=== PATIENT | male | born 1955 | race Caucasian/White ===

== ENCOUNTER 2020-08-18 12:24 | Inpatient (IN) ==
--- NOTE | 2020-08-18 13:33 | Emergency Department Note ---
History of Present Illness General Chief complaint: Fall Stated complaint: RECENT FREQ IN FALLS,LEGS GO OUT,NUMB/TING BUE Time Seen by Provider: 08/18/20 13:09 History of Present Illness Maximum Pain Intensity: 9 This is a 65-year-old male the presents to the emergency department via private vehicle with complaints of "recent increase in number of falls, legs giving out, numbness/tingling". The patient states that beginning in May 2019 he was descending a flight of steps and his legs gave out on him. He thought perhaps this was an isolated event but notes that 2 weeks later this occurred again. He states that he was then given a cane of which he used for about 6 weeks. He no poli that he had a nerve conduction performed about a year ago. He notes that there was evidence of abnormalities in the extremities. At times he feels as though the hands are on fire but this is intermittent. He also notes a numbness/tingling sensation from the fingertips to the mid forearms bilaterally. He also notes a similar sensation in the toes, feet and mid marshall regions. Patient notes that over the past 3 to 4 days he has fallen several times and has injured his left thumb, right side of his ribs, as well as struck his knees and injured his toes. He notes a history of COPD and has chronic shortness of breath but this is not new. The patient denies any fevers, chills, nausea, vom iting or chest pain. Patient also notes that as of recent he has had trouble urinating and did have to have a catheter placed which was removed recently. Home Medications Medication Instructions Recorded Confirmed Type acetaminophen 1,000 mg PO TID PRN 08/18/20 08/18/20 History acidophilus-pectin, citrus 1 cap PO TID 08/18/20 08/18/20 History [Acidophilus Probiotic] aspirin 81 mg PO DAILY 08/18/20 08/18/20 History atorvastatin 40 mg PO DAILY 08/18/20 08/18/20 History baclofen 20 mg PO BID 08/18/20 08/18/20 History ciclesonide [Alvesco] 1 puff INHALATION BID 08/18/20 08/18/20 History diclofenac sodium 50 mg PO TID 08/18/20 08/18/20 History fluoxetine 80 mg PO DAILY 08/18/20 08/18/20 History levalbuterol tartrate [Xopenex HFA] 2 inh INHALATION Q6H PRN 08/18/20 08/18/20 History loperamide [Imodium A-D] 2 mg PO QID PRN 08/18/20 08/18/20 History oxcarbazepine [Trileptal] 150 mg PO BID 08/18/20 08/18/20 History ropinirole 1 mg PO HS 08/18/20 08/18/20 History Allergies Allergy/AdvReac Type Severity Reaction Status Date / Time gemfibrozil [From Lopid] Allergy Unknown Unverified 08/18/20 15:16 Past Med/Surg History Medical History CAD (coronary artery disease) HLD (hyperlipidemia) Idiopathic polyneuropathy Seizure disorder Surgical History H/O toe surgery History of carpal tunnel release of both wrists Stented coronary artery Family History Mother Diabetes Father Coronary heart disease Diabetes Myocardial infarction Social History Smoking Status: Former smoker Tobacco Type: Cigarettes Hx Alcohol Use: Yes Alcohol type: beer and hard liquor Preferred Language: Russian Current Living Situation: Other Current Living Situation Comment: [facility] Other Information That Helps Us Care for You: No Feels Safe at Home: Yes Assistive Devices: Wheelchair Review of Systems A total of 10 systems reviewed and were otherwise negative Physical Exam Vital Signs Vital Signs - 24 hr 08/18/20 12:27 08/18/20 12:47 08/18/20 12:51 Temperature 36.6 C Temperature Source Temporal Artery Scan Pulse Rate 84 83 80 Pulse Rate [Apical] Pulse Rate from SpO2 Sensor 84 79 Respiratory Rate 18 19 21 Respiratory Effort / Characteristics Non-Labored Spontaneous Respiratory Depth Normal Respiratory Pattern Regular Blood Pressure 142/93 H 151/89 H Blood Pressure [Left Arm] Blood Pressure Mean 109 109 Blood Pressure Mean [Left Arm] Blood Pressure Position Sitting Pulse Oximetry 92 95 95 Oxygen Delivery Method Room Air Sepsis Recent Fever Within 48 Hours No Sepsis New/Unexplained Change in Mental Status N/A Sepsis Action Taken by Nursing No Action Required 08/18/20 13:00 08/18/20 13:01 08/18/20 13:10 Temperature Temperature Source Pulse Rate 85 86 82 Pulse Rate [Apical] Pulse Rate from SpO2 Sensor 84 86 Respiratory Rate 18 29 H 18 Respiratory Effort / Characteristics Respiratory Depth Respiratory Pattern Blood Pressure 128/101 H Blood Pressure [Left Arm] Blood Pressure Mean 110 Blood Pressure Mean [Left Arm] Blood Pressure Position Pulse Oximetry 93 95 Oxygen Delivery Method Sepsis Recent Fever Within 48 Hours Sepsis New/Unexplained Change in Mental Status Sepsis Action Taken by Nursing 08/18/20 13:20 08/18/20 13:30 08/18/20 13:31 Temperature Temperature Source Pulse Rate 83 82 77 Pulse Rate [Apical] Pulse Rate from SpO2 Sensor Respiratory Rate 22 28 H 29 H Respiratory Effort / Characteristics Respiratory Depth Respiratory Pattern Blood Pressure 161/93 H Blood Pressure [Left Arm] Blood Pressure Mean 115 Blood Pressure Mean [Left Arm] Blood Pressure Position Pulse Oximetry Oxygen Delivery Method Sepsis Recent Fever Within 48 Hours Sepsis New/Unexplained Change in Mental Status Sepsis Action Taken by Nursing 08/18/20 13:33 08/18/20 13:40 08/18/20 13:50 Temperature Temperature Source Pulse Rate 78 77 Pulse Rate [Apical] Pulse Rate from SpO2 Sensor Respiratory Rate 25 H 15 Respiratory Effort / Characteristics Respiratory Depth Respiratory Pattern Blood Pressure Blood Pressure [Left Arm] Blood Pressure Mean Blood Pressure Mean [Left Arm] Blood Pressure Position Pulse Oximetry Oxygen Delivery Method Room Air Sepsis Recent Fever Within 48 Hours Sepsis New/Unexplained Change in Mental Status Sepsis Action Taken by Nursing 08/18/20 14:00 08/18/20 14:02 08/18/20 14:10 Temperature Temperature Source Pulse Rate 78 107 H Pulse Rate [Apical] 77 Pulse Rate from SpO2 Sensor 77 105 H Respiratory Rate 17 18 17 Respiratory Effort / Characteristics Non-Labored Respiratory Depth Normal Respiratory Pattern Blood Pressure 153/99 H Blood Pressure [Left Arm] 153/99 H Blood Pressure Mean 117 Blood Pressure Mean [Left Arm] 117 Blood Pressure Position Pulse Oximetry 95 95 97 Oxygen Delivery Method Room Air Sepsis Recent Fever Within 48 Hours Sepsis New/Unexplained Change in Mental Status Sepsis Action Taken by Nursing 08/18/20 14:20 08/18/20 14:30 08/18/20 14:40 Temperature Temperature Source Pulse Rate 76 76 71 Pulse Rate [Apical] 76 Pulse Rate from SpO2 Sensor 76 76 73 Respiratory Rate 23 21 19 Respiratory Effort / Characteristics Respiratory Depth Respiratory Pattern Blood Pressure 161/94 H Blood Pressure [Left Arm] 160/94 H Blood Pressure Mean 116 Blood Pressure Mean [Left Arm] 116 Blood Pressure Position Pulse Oximetry 95 95 96 Oxygen Delivery Method Room Air Sepsis Recent Fever Within 48 Hours Sepsis New/Unexplained Change in Mental Status Sepsis Action Taken by Nursing 08/18/20 14:49 08/18/20 14:51 08/18/20 15:00 Temperature Temperature Source Pulse Rate 75 79 74 Pulse Rate [Apical] Pulse Rate from SpO2 Sensor 76 78 74 Respiratory Rate 19 18 23 Respiratory Effort / Characteristics Respiratory Depth Respiratory Pattern Blood Pressure 156/98 H 160/94 H Blood Pressure [Left Arm] Blood Pressure Mean 117 116 Blood Pressure Mean [Left Arm] Blood Pressure Position Pulse Oximetry 96 98 96 Oxygen Delivery Method Sepsis Recent Fever Within 48 Hours Sepsis New/Unexplained Change in Mental Status Sepsis Action Taken by Nursing 08/18/20 15:26 08/18/20 15:30 08/18/20 15:31 Temperature Temperature Source Pulse Rate 80 69 76 Pulse Rate [Apical] Pulse Rate from SpO2 Sensor 79 Respiratory Rate 23 25 H 20 Respiratory Effort / Characteristics Respiratory Depth Respiratory Pattern Blood Pressure 152/107 H Blood Pressure [Left Arm] Blood Pressure Mean 122 Blood Pressure Mean [Left Arm] Blood Pressure Position Pulse Oximetry 94 80 L Oxygen Delivery Method Sepsis Recent Fever Within 48 Hours Sepsis New/Unexplained Change in Mental Status Sepsis Action Taken by Nursing 08/18/20 15:40 08/18/20 15:47 08/18/20 15:48 Temperature Temperature Source Pulse Rate 77 78 74 Pulse Rate [Apical] Pulse Rate from SpO2 Sensor 77 79 74 Respiratory Rate 23 24 19 Respiratory Effort / Characteristics Respiratory Depth Respiratory Pattern Blood Pressure 170/134 H 179/101 H Blood Pressure [Left Arm] Blood Pressure Mean 146 127 Blood Pressure Mean [Left Arm] Blood Pressure Position Pulse Oximetry 97 97 97 Oxygen Delivery Method Sepsis Recent Fever Within 48 Hours Sepsis New/Unexplained Change in Mental Status Sepsis Action Taken by Nursing 08/18/20 15:50 08/18/20 16:00 08/18/20 16:01 Temperature Temperature Source Pulse Rate 75 74 79 Pulse Rate [Apical] Pulse Rate from SpO2 Sensor 75 73 78 Respiratory Rate 16 22 19 Respiratory Effort / Characteristics Respiratory Depth Respiratory Pattern Blood Pressure 201/98 H Blood Pressure [Left Arm] Blood Pressure Mean 132 Blood Pressure Mean [Left Arm] Blood Pressure Position Pulse Oximetry 97 79 L 97 Oxygen Delivery Method Sepsis Recent Fever Within 48 Hours Sepsis New/Unexplained Change in Mental Status Sepsis Action Taken by Nursing 08/18/20 16:10 08/18/20 16:16 08/18/20 16:20 Temperature Temperature Source Pulse Rate 77 76 78 Pulse Rate [Apical] 74 Pulse Rate from SpO2 Sensor 75 78 Respiratory Rate 19 15 36 H Respiratory Effort / Characteristics Non-Labored Spontaneous Respiratory Depth Respiratory Pattern Blood Pressure 181/115 H Blood Pressure [Left Arm] Blood Pressure Mean 137 Blood Pressure Mean [Left Arm] Blood Pressure Position Pulse Oximetry 97 100 Oxygen Delivery Method Room Air Sepsis Recent Fever Within 48 Hours Sepsis New/Unexplained Change in Mental Status Sepsis Action Taken by Nursing 08/18/20 16:30 08/18/20 16:31 08/18/20 16:40 Temperature Temperature Source Pulse Rate 80 76 83 Pulse Rate [Apical] Pulse Rate from SpO2 Sensor 76 80 Respiratory Rate 32 H 29 H 18 Respiratory Effort / Characteristics Respiratory Depth Respiratory Pattern Blood Pressure 155/103 H Blood Pressure [Left Arm] Blood Pressure Mean 120 Blood Pressure Mean [Left Arm] Blood Pressure Position Pulse Oximetry 99 96 Oxygen Delivery Method Sepsis Recent Fever Within 48 Hours Sepsis New/Unexplained Change in Mental Status Sepsis Action Taken by Nursing 08/18/20 16:46 08/18/20 16:50 08/18/20 17:00 Temperature Temperature Source Pulse Rate 81 79 82 Pulse Rate [Apical] Pulse Rate from SpO2 Sensor 81 81 Respiratory Rate 22 22 23 Respiratory Effort / Characteristics Respiratory Depth Respiratory Pattern Blood Pressure 153/102 H Blood Pressure [Left Arm] Blood Pressure Mean 119 Blood Pressure Mean [Left Arm] Blood Pressure Position Pulse Oximetry 95 97 Oxygen Delivery Method Sepsis Recent Fever Within 48 Hours Sepsis New/Unexplained Change in Mental Status Sepsis Action Taken by Nursing 08/18/20 17:10 08/18/20 17:16 08/18/20 17:20 Temperature Temperature Source Pulse Rate 78 79 82 Pulse Rate [Apical] Pulse Rate from SpO2 Sensor 76 Respiratory Rate 13 18 22 Respiratory Effort / Characteristics Respiratory Depth Respiratory Pattern Blood Pressure 155/95 H Blood Pressure [Left Arm] Blood Pressure Mean 115 Blood Pressure Mean [Left Arm] Blood Pressure Position Pulse Oximetry 97 Oxygen Delivery Method Sepsis Recent Fever Within 48 Hours Sepsis New/Unexplained Change in Mental Status Sepsis Action Taken by Nursing 08/18/20 17:30 08/18/20 17:31 08/18/20 17:40 Temperature Temperature Source Pulse Rate 97 H 83 93 H Pulse Rate [Apical] Pulse Rate from SpO2 Sensor Respiratory Rate 24 20 27 H Respiratory Effort / Characteristics Respiratory Depth Respiratory Pattern Blood Pressure 159/70 H Blood Pressure [Left Arm] Blood Pressure Mean 99 Blood Pressure Mean [Left Arm] Blood Pressure Position Pulse Oximetry Oxygen Delivery Method Sepsis Recent Fever Within 48 Hours Sepsis New/Unexplained Change in Mental Status Sepsis Action Taken by Nursing 08/18/20 17:46 08/18/20 17:47 08/18/20 17:50 Temperature Temperature Source Pulse Rate 90 87 122 H Pulse Rate [Apical] Pulse Rate from SpO2 Sensor Respiratory Rate 17 18 19 Respiratory Effort / Characteristics Respiratory Depth Respiratory Pattern Blood Pressure 141/106 H Blood Pressure [Left Arm] Blood Pressure Mean 117 Blood Pressure Mean [Left Arm] Blood Pressure Position Pulse Oximetry Oxygen Delivery Method Sepsis Recent Fever Within 48 Hours Sepsis New/Unexplained Change in Mental Status Sepsis Action Taken by Nursing 08/18/20 18:00 08/18/20 18:10 08/18/20 18:16 Temperature Temperature Source Pulse Rate 94 H 98 H 86 Pulse Rate [Apical] Pulse Rate from SpO2 Sensor Respiratory Rate 22 18 20 Respiratory Effort / Characteristics Respiratory Depth Respiratory Pattern Blood Pressure 168/106 H Blood Pressure [Left Arm] Blood Pressure Mean 126 Blood Pressure Mean [Left Arm] Blood Pressure Position Pulse Oximetry Oxygen Delivery Method Sepsis Recent Fever Within 48 Hours Sepsis New/Unexplained Change in Mental Status Sepsis Action Taken by Nursing 08/18/20 18:20 08/18/20 18:30 08/18/20 18:40 Temperature Temperature Source Pulse Rate 89 81 90 Pulse Rate [Apical] Pulse Rate from SpO2 Sensor Respiratory Rate 21 20 23 Respiratory Effort / Characteristics Respiratory Depth Respiratory Pattern Blood Pressure Blood Pressure [Left Arm] Blood Pressure Mean Blood Pressure Mean [Left Arm] Blood Pressure Position Pulse Oximetry Oxygen Delivery Method Sepsis Recent Fever Within 48 Hours Sepsis New/Unexplained Change in Mental Status Sepsis Action Taken by Nursing 08/18/20 18:46 08/18/20 18:50 08/18/20 19:00 Temperature Temperature Source Pulse Rate 80 88 83 Pulse Rate [Apical] Pulse Rate from SpO2 Sensor Respiratory Rate 18 21 21 Respiratory Effort / Characteristics Respiratory Depth Respiratory Pattern Blood Pressure 145/75 H Blood Pressure [Left Arm] Blood Pressure Mean 98 Blood Pressure Mean [Left Arm] Blood Pressure Position Pulse Oximetry Oxygen Delivery Method Sepsis Recent Fever Within 48 Hours Sepsis New/Unexplained Change in Mental Status Sepsis Action Taken by Nursing 08/18/20 19:01 08/18/20 19:10 Temperature Temperature Source Pulse Rate 87 84 Pulse Rate [Apical] Pulse Rate from SpO2 Sensor Respiratory Rate 18 32 H Respiratory Effort / Characteristics Respiratory Depth Respiratory Pattern Blood Pressure 131/105 H Blood Pressure [Left Arm] Blood Pressure Mean 113 Blood Pressure Mean [Left Arm] Blood Pressure Position Pulse Oximetry Oxygen Delivery Method Sepsis Recent Fever Within 48 Hours Sepsis New/Unexplained Change in Mental Status Sepsis Action Taken by Nursing VITAL SIGNS - Vital signs and nursing notes were reviewed. Stable and afebrile. GENERAL - 65-year-old male appearing his stated age who is in no acute distress. Communicates well with provider and answers questions appropriately. SKIN - Without rashes. No meningeal or petechial rash. HEAD - NC/AT. EYES - Sclera anicteric. EARS - No deformities of external structures noted on gross examination bilaterally. NOSE - Midline and without cyanosis. No epistaxis or purulent drainage noted. MOUTH/OROPHARYNX - Without perioral cyanosis. NECK - Neck with FROM.No nuchal rigidity. LUNGS - Chest wall symmetric without accessory muscle use, intercostals retractions, or central cyanosis. Normal vesicular breath sounds CTA B/L. No wheezes, rales, or rhonchi appreciated. CARDIAC - RRR with S1/S2. No murmur, rubs, or gallops appreciated. ABDOMEN - Abdominal contour normal without pulsations or visible masses. BS normoactive all four quadrants. No tenderness, palpable masses, hepatosplenomegaly, or ascites noted. Right anterior lateral rib tenderness to palpation just superior to the right upper quadrant. EXTREMITIES - No clubbing or peripheral cyanosis. No pretibial edema present. Mild tenderness overlying the left thumb region. Full range of motion noted. +5/5 strength noted in UE/LE bilaterally. NEUROLOGIC - Cranial nerves II through XII grossly intact. Sensory intact to light touch throughout. PSYCH - A&Ox3 and cooperates fully with examiner. Pt is very pleasant and interacts well with examiner. Course Administered Medications Baclofen (Baclofen 20 Mg Tab) 20 mg PO BID KILEY Stop: 09/17/20 21:59 Last Admin: 08/18/20 22:14 Dose: 20 mg Documented by: [id number] Enoxaparin Sodium (Enoxaparin Inj 40 Mg/0.4 Ml Syr) 40 mg SQ Q24H KILEY Stop: 09/17/20 21:59 Last Admin: 08/18/20 22:14 Dose: 40 mg Documented by: [id number] Ceftriaxone Sodium 2,000 mg/ (Dextrose) 70 mls @ 100 mls/hr IV Q24H [facility]; Protocol Stop: 08/28/20 21:59 Last Admin: 08/18/20 22:14 Dose: 100 mls/hr Documented by: [id number] Ropinirole HCl (Ropinirole Hcl 1 Mg Tablet) 1 mg PO HS KILEY Stop: 09/17/20 21:59 Last Admin: 08/18/20 22:14 Dose: 1 mg Documented by: [id number] Tamsulosin HCl (Tamsulosin Hcl 0.4 Mg Cap) 0.4 mg PO [facility] Stop: 09/17/20 21:59 Last Admin: 08/18/20 22:14 Dose: 0.4 mg Documented by: [id number] Discontinued Medications Albuterol (Albuterol Hfa 8 Gm Inhaler) 2 puffs INH NOW ONE Stop: 08/18/20 15:55 Last Admin: 08/18/20 16:19 Dose: 2 puffs Documented by: [id number] Ioversol (Optiray 320 100ml) 93 ml IV ONCE ONE Stop: 08/18/20 15:26 Last Admin: 08/18/20 15:25 Dose: 93 ml Documented by: [id number] Medical Decision Making Laboratory Data Result diagrams: 08/18/20 13:24 08/18/20 13:24 Lab Results 08/18/20 08/18/20 08/18/20 Range/Units 10:12 13:24 13:24 WBC 8.29 (4.8-10.8) K/uL RBC 3.58 L (4.7-6.1) M/uL Hgb 11.8 L (14.0-18.0) g/dL Hct 35.2 L (42-52) % MCV 98.3 (80-100) fL MCH 33.0 (25-34) pg MCHC 33.5 (32-36) g/dL RDW Std Deviation 47.5 H (36.4-46.3) fL RDW Coeff of Dinesh 13.1 (11.5-14.5) % Plt Count 188 (130-400) K/uL MPV 9.6 (7.4-10.4) fL Immature Gran % (Auto) 0.1 % Neut % (Auto) 80.5 % Lymph % (Auto) 9.8 % [place] % (Auto) 8.7 % Eos % (Auto) 0.8 % Baso % (Auto) 0.1 % Neut # (Auto) 6.67 H (1.4-6.5) K/uL Lymph # (Auto) 0.81 L (1.2-3.4) K/uL [place] # (Auto) 0.72 H (0.11-0.59) K/uL Eos # (Auto) 0.07 (0-0.5) K/uL Baso # (Auto) 0.01 (0-0.2) K/uL Immature Gran # (Auto) 0.01 (0.00-0.02) K/uL PT (9.0-12.0) Seconds INR (0.9-1.1) APTT (21.0-31.0) Seconds PTT Ratio Sodium 139 (136-145) mmol/L Potassium 4.0 (3.5-5.1) mmol/L Chloride 107 (98-107) mmol/L Carbon Dioxide 25 (21-32) mmol/L Anion Gap 7.0 (3-11) BUN 21 H (7-18) mg/dl Creatinine 0.80 (0.6-1.4) mg/dl Est Cr Clr Drug Dosing Not Reportable Est GFR ( Amer) 107.1 ml/min Est GFR (Non-Af Amer) 92.4 ml/min BUN/Creatinine Ratio 26.2 H (10-20) Glucose 108 H (70-99) mg/dl Calcium 8.9 (8.5-10.1) mg/dl Magnesium 2.3 (1.8-2.4) mg/dl Total Bilirubin 0.6 (0.2-1) mg/dl AST 26 (15-37) U/L ALT 29 (12-78) U/L Alkaline Phosphatase 60 (45-117) U/L Troponin I < 0.015 (0-0.045) ng/ml Total Protein 7.4 (6.4-8.2) gm/dl Albumin 3.9 (3.4-5.0) gm/dl Globulin 3.5 (2.5-4.0) gm/dl Albumin/Globulin Ratio 1.1 (0.9-2) TSH 0.554 (0.300-4.500) uIu/ml Urine Color Yellow Urine Appearance Cloudy A (Clear) Urine pH 7.0 (4.5-7.5) Ur Specific [place] 1.044 H (1.000-1.030) Urine Protein Trace H (Negative) Urine Glucose (UA) Negative (Negative) Urine Ketones Trace H (Negative) Urine Blood 3+ H (Negative) Urine Nitrite Positive A (Negative) Urine Bilirubin Negative (Negative) Urine Urobilinogen Positive H (Negative) Ur Leukocyte Esterase 2+ H (Negative) Urine WBC (Auto) >30 H (0-5) /hpf Urine RBC (Auto) >30 H (0-4) /hpf U Hyaline Cast (Auto) 1-5 (0-5) /lpf U Epithel Cells (Auto) 0-5 (0-5) /lpf Urine Bacteria (Auto) 4+ H (Negative) COVID-19 Eval Order SARS-CoV-2 (PCR) (Negative) 08/18/20 08/18/20 08/18/20 Range/Units 13:24 16:28 16:28 WBC (4.8-10.8) K/uL RBC (4.7-6.1) M/uL Hgb (14.0-18.0) g/dL Hct (42-52) % MCV (80-100) fL MCH (25-34) pg MCHC (32-36) g/dL RDW Std Deviation (36.4-46.3) fL RDW Coeff of Dinesh (11.5-14.5) % Plt Count (130-400) K/uL MPV (7.4-10.4) fL Immature Gran % (Auto) % Neut % (Auto) % Lymph % (Auto) % [place] % (Auto) % Eos % (Auto) % Baso % (Auto) % Neut # (Auto) (1.4-6.5) K/uL Lymph # (Auto) (1.2-3.4) K/uL [place] # (Auto) (0.11-0.59) K/uL Eos # (Auto) (0-0.5) K/uL Baso # (Auto) (0-0.2) K/uL Immature Gran # (Auto) (0.00-0.02) K/uL PT 10.2 (9.0-12.0) Seconds INR 1.0 (0.9-1.1) APTT 22.1 (21.0-31.0) Seconds PTT Ratio 0.8 Sodium (136-145) mmol/L Potassium (3.5-5.1) mmol/L Chloride (98-107) mmol/L Carbon Dioxide (21-32) mmol/L Anion Gap (3-11) BUN (7-18) mg/dl Creatinine (0.6-1.4) mg/dl Est Cr Clr Drug Dosing Est GFR ( Amer) ml/min Est GFR (Non-Af Amer) ml/min BUN/Creatinine Ratio (10-20) Glucose (70-99) mg/dl Calcium (8.5-10.1) mg/dl Magnesium (1.8-2.4) mg/dl Total Bilirubin (0.2-1) mg/dl AST (15-37) U/L ALT (12-78) U/L Alkaline Phosphatase (45-117) U/L Troponin I (0-0.045) ng/ml Total Protein (6.4-8.2) gm/dl Albumin (3.4-5.0) gm/dl Globulin (2.5-4.0) gm/dl Albumin/Globulin Ratio (0.9-2) TSH (0.300-4.500) uIu/ml Urine Color Urine Appearance (Clear) Urine pH (4.5-7.5) Ur Specific [place] (1.000-1.030) Urine Protein (Negative) Urine Glucose (UA) (Negative) Urine Ketones (Negative) Urine Blood (Negative) Urine Nitrite (Negative) Urine Bilirubin (Negative) Urine Urobilinogen (Negative) Ur Leukocyte Esterase (Negative) Urine WBC (Auto) (0-5) /hpf Urine RBC (Auto) (0-4) /hpf U Hyaline Cast (Auto) (0-5) /lpf U Epithel Cells (Auto) (0-5) /lpf Urine Bacteria (Auto) (Negative) COVID-19 Eval Order Covid19 at [facility] SARS-CoV-2 (PCR) NEGATIVE (Negative) Imaging Data Radiologist's Impression: Abdomen/Pelvis CT 08/18/20 13:[address] WITH IV CONTRAST HISTORY: Acute pelvic pain status post fall Frequent falls, R sided rib pain, Suprapubic pain TECHNIQUE: Multiaxial CT images of the abdomen and pelvis were performed following the IV administration of 93 cc of Optiray, A dose lowering technique was utilized adhering to the principles of ALARA. COMPARISON STUDY: CT lumbar spine study of same day FINDINGS: Clear lung bases. No pneumatosis or pneumoperitoneum. The spleen, liver, gallbladder, pancreas and adrenal glands are unremarkable. The kidneys are within normal limits. No hydronephrosis. Mild to moderate urinary bladder wall thickening with perivesicular stranding and trace free pelvic fluid. Mild prostamegaly. Moderate to advanced atherosclerotic plaque the abdominal aorta and branch vessels. Mild fusiform aneurysmal dilation of the infrarenal abdominal aorta, 3.0 x 3.0 cm. No adenopathy. No bowel obstruction or bowel wall thickening. Colonic diverticulosis. Normal appendix. Tiny fat filled periumbilical hernia. Degenerative changes of the spine, pelvis and hips. Healing subacute nondisplaced fracture of the anterior right eighth rib. No acute fracture identified. IMPRESSION: 1. Prostamegaly with urinary bladder wall thickening, perivesicular stranding and trace perivesicular free fluid. Findings are suggestive of cystitis. Correlate with urinalysis. 2. No bowel obstruction or bowel wall thickening. Normal appendix. 3. Healing subacute nondisplaced fracture of the anterior right eighth rib. 4. Fusiform aneurysmal dilation of the infrarenal abdominal aorta, 3.0 cm. 5. Additional findings as above. ACT 112: Negative or not required by law. The above report was generated using voice recognition software. It may contain grammatical, syntax or spelling errors. Electronically signed by: Jon Rowan M.D. 08/18/2020 3:[address] 08/18/20 13:24 CT cervical spine wo con CT DOSE: 3642.93 mGy.cm CLINICAL HISTORY: 65 years-old Male with Frequent falls, trauma. Acute head and neck injury status post fall COMPARISON: Head CT of same day TECHNIQUE: Multiple axial CT images of the cervical spine were obtained without contrast. A dose lowering technique was utilized adhering to the principles of ALARA. FINDINGS: Straightening of the normal cervical lordosis. Moderate multilevel intervertebral disc space narrowing with severe facet arthrosis. Degenerative bony fusion of the left C4-C5 facets. 3 mm anterolisthesis C3 on C4 and C4 on C5, likely secondary to chronic severe facet arthrosis. Mild mid cervical dextroscoliosis. No acute fracture or subluxation. Multilevel neural foraminal narrowing. No pneumothorax. No prevertebral edema. Calcified plaque the carotid bulbs. IMPRESSION: No acute fracture or subluxation. ACT 112: Negative or not required by law. The above report was generated using voice recognition software. It may contain grammatical, syntax or spelling errors. Electronically signed by: Jon Rowan M.D. 08/18/2020 3:32 PM Chest CT 08/18/20 13:24 CT OF THE CHEST WITH IV CONTRAST CLINICAL HISTORY: Frequent falls, R sided rib pain COMPARISON STUDY: No previous studies for comparison. TECHNIQUE: Following IV administration of 93 mL of Optiray, helical axial images of the chest were obtained. Sagittal and coronal reconstructions were viewed as well as maximal intensity projections on an independent 3-D workstation. Automated exposure control was utilized for the study. A dose lowering technique was utilized adhering to the principles of ALARA. FINDINGS: There is no evidence for traumatic injury to the thoracic aorta. No mediastinal hematoma is present. There is no thoracic lymphadenopathy. The size of the heart is normal. There is moderate coronary artery calcification. There is no pericardial effusion. No pneumothorax or pleural effusion is present. There is mild emphysema. Linear opacities reflect atelectasis. There is no contusion within the lungs. A healing anterior right eighth rib fracture is noted. There aren't no acute rib fractures. No acute thoracic spine fracture is present. IMPRESSION: 1. No acute traumatic findings within the chest. 2. Healing anterior right eighth rib fracture. No pneumothorax. No acute rib fractures identified. ACT 112: Negative or not required by law. Electronically signed by: Raheel Chaidez M.D. 08/18/2020 3:[address] 08/18/20 13:[address] DOSE: HISTORY: frequent falls, extremities numb/weak TECHNIQUE: Multiaxial CT images of the head were performed without the use of intravenous contrast. Automated exposure control was utilized for this study. A dose lowering technique was utilized adhering to the principles of ALARA. Comparison: None. Findings: The paranasal sinuses and mastoid air cells are clear. The calvarium and skull base are intact. The ventricles and sulci are within normal limits. There is no mass, hematoma, midline shift, or acute infarct. Impression: No acute intracranial abnormality. ACT 112: Negative or not required by law. Electronically signed by: Javier Tam M.D. 08/18/2020 3:42 PM Hand X-Ray 08/18/20 13:25 XR hand LT min 3V routine HISTORY: 65 years-old Male Fall, L thumb pain acute left hand pain status post fall COMPARISON: None TECHNIQUE: 3 views of the left hand FINDINGS: Predominantly mild multifocal osteoarthritis. There is moderate osteoarthritis of the first DIP joint. No acute fracture, dislocation, osseous erosion or opaque foreign body. IMPRESSION: No acute fracture or dislocation. ACT 112: Negative or not required by law. The above report was generated using voice recognition software. It may contain grammatical, syntax or spelling errors. Electronically signed by: Jon Rowan M.D. 08/18/2020 1:[address] 08/18/20 13:34 CT lumbar spine w con CT DOSE: CLINICAL HISTORY: Urinary difficulties, frequent falls TECHNIQUE: The patient was scanned following administration of 93 cc of Optiray 320. Helical images were acquired. Sagittal coronal reformatted images were created. A dose lowering technique was utilized adhering to the principles of ALARA. COMPARISON STUDY: None. FINDINGS: No acute fractures or traumatic subluxations are visualized. L1-2 level: There is no evidence of significant disc bulge or focal herniation. There is no evidence spinal or foraminal stenosis L2-3 level: There is a mild circumferential disc bulge. There is mild spinal stenosis. There is no significant foraminal narrowing. L3-4 level: There is a circumferential disc bulge. There is moderate spinal s tenosis. There is no specific and foraminal narrowing. L4-5 level: There is marked disc degeneration with discogenic and plate sclerosis. There is a circumferential disc bulge. There is moderate spinal stenosis. There is bilateral foraminal narrowing. L5-S1 level: There is mild posterior spurring. No focal herniations are visualized. There is no significant spinal stenosis. There is mild bilateral foraminal narrowing. IMPRESSION: 1. No acute fractures or traumatic subluxations 2. Multilevel degenerative change with moderate spinal stenosis at the L3-4 and L4-5 levels. ACT 112: Negative or not required by law. Electronically signed by: Giancarlo Garcia M.D. 08/18/2020 3:43 PM MDM Narrative Patient was seen and evaluated as above in room A10. Review was performed of nursing notes and vital signs. I did review pertinent information provided by BRII Gonzalez via packet. After obtaining a thorough history and physical examination the above work up was performed. Patient presents to us today with what he describes as about a year now of his legs intermittently giving out on him and also a burning/numbness sensation in his fingers and toes of which has now progressed into his forearms and mid marshall region. The patient states that he has had several falls over this period of time but has had a sharp increase in number of falls over the past few days. Patient denies any fevers, chills, nausea, vomiting or chest pain. On exam the patient is not have any focal neurologic deficit. Options of care were discussed with the patient. IV access established. With the patient having several falls in the recent past now here today with right- sided rib pain as well as suprapubic abdominal discomfort as well as urinary retention it is felt that further evaluation and management would be warranted. Imaging was obtained of the head and C-spine given patient's frequent falls and numbness in the extremities but I also added on CT scan of the chest, abdomen, pelvis with recon of the L-spine noting the patient's new onset suprapubic abdominal discomfort with urinary retention as well as to evaluate his right- sided rib discomfort status post falls. Results of these images as above. Hand x-ray negative. L-spine negative for fracture. The patient does not have any evidence of acute intracranial process, C-spine injury or acute intrathoracic process. In the abdomen pelvis the patient does have prostamegaly with urinary bladder wall thickening among other findings. Findings are suggestive of cystitis. Correlate with urinalysis. The patient's urinalysis does suggest UTI. Laboratory studies reveal no leukocytosis. No emergent anemia, hemoglobin 11.8. Mild BUN elevation of 21. Glucose 108. Troponin negative. TSH reveals euthyroid state. Urinalysis is with positive nitrites, 3+ blood, and greater than 30 red blood cells as well as white blood cells with 4+ bacteria. Covid testing negative. On arrival I did discuss the patient's presentation with the [facility] ysician. We discussed the concern over the patient having frequent falls and went from a state of being able to ambulate to now having great difficulty with ambulation. We discussed additional inpatient testing. MRI of the brain was discussed as a potential further step. It is felt that the patient would benefit from inpatient management. I relayed this information to the hospitalist that also evaluated the patient. Please refer to further documentation regarding his stay. I was notified that the patient was not able to urinate and was beginning to feel uncomfortable. Bladder scan was performed and a Garcia catheter was placed. Patient was able to drain a large amount of urine. I reviewed the CT scan reports with the patient and discussed incidentals. While in the department, I personally reevaluated the patient several times and each time the patient was found to be resting comfortably. Case was discussed with the attending physician. EKG was reviewed by myself and found to be Normal Sinus Rhythm at a rate of 76 beats per minute and per my interpretation reveals no ST elevation. QTc 456. QRS 94. No ST elevation. GCS: 15 In the evaluation and treatment of this patient, the following differential diagnoses were considered: Concussion, Contrecoup Injury, Brain Tumor, Depression, Encephalitis, Hypothyroidism, Meningitis, CVA, TIA, Migraine, Cluster Headache, Intracranial Abnormality, Intracranial Hemorrhage, Subdural Hematoma, Subarachnoid Hemorrhage, Hydrocephalus, MS, ALS, among others. Impression & Plan Frequent falls, UTI (urinary tract infection), Rib pain on right side, Abdominal pain, suprapubic, Acute urinary retention Discharge Plan Visit Data Chief Complaint: Fall Stated Complaint: RECENT FREQ IN FALLS,LEGS GO OUT,NUMB/TING BUE ED Provider: [facility] ED Midlevel Provider: Fili Jo Discharge Problem: Frequent falls, UTI (urinary tract infection), Rib pain on right side, Abdominal pain, suprapubic, Acute urinary retention Patient Disposition: Admitted As Inpatient Discharge Instructions Interventions: ED Discharge Assessment Last Done: 08/18/20 20:31
--- NOTE | 2020-08-18 13:49 | XRay Report ---
XR hand LT min 3V routine HISTORY: 65 years-old Male Fall, L thumb pain acute left hand pain status post fall COMPARISON: None TECHNIQUE: 3 views of the left hand FINDINGS: Predominantly mild multifocal osteoarthritis. There is moderate osteoarthritis of the first DIP joint . No acute fracture, dislocation, osseous erosion or opaque foreign body. IMPRESSION: No acute fracture or dislocation. ACT 112: Negative or not required by law. The above report was generated using voice recognition software. It may contain grammatical, syntax o r spelling errors. Electronically signed by: Jon Rowan M.D. 08/18/2020 1:48 PM
[2020-08-18 14:08] LABS: Basophils # (auto) 0.01 K/uL (0-0.2); Basophils % (auto) 0.1 %; Eosinophils # (auto) 0.07 K/uL (0-0.5); Eosinophils % (auto) 0.8 %; Hematocrit (blood only) 35.2 % (42-52); Hemoglobin 11.8 g/dL (14.0-18.0); Immature Granulocytes # (auto) 0.01 K/uL (0.00-0.02); Immature Granulocytes % (auto) 0.1 %; Lymphocytes # (auto) 0.81 K/uL (1.2-3.4); Lymphocytes % (auto) 9.8 %; Mean Corpuscular Hgb Conc 33.5 g/dL (32-36); Mean Corpuscular Volume 98.3 fL (80-100); Mean Platelet Volume 9.6 fL (7.4-10.4); Monocytes # (auto) 0.72 K/uL (0.11-0.59); Monocytes % (auto) 8.7 %; Neutrophils # (auto) 6.67 K/uL (1.4-6.5); Neutrophils % (auto) 80.5 %; Platelet Count 188 K/uL (130-400); RDW Coefficient of Variation 13.1 % (11.5-14.5); RDW Standard Deviation 47.5 fL (36.4-46.3); Red Blood Count 3.58 M/uL (4.7-6.1); White Blood Count 8.29 K/uL (4.8-10.8)
[2020-08-18 14:29] LABS: Partial Thromboplastin Ratio 0.8; Partial Thromboplastin Time 22.1 Seconds (21.0-31.0); Prothrombin Time 10.2 Seconds (9.0-12.0)
[2020-08-18 14:35] LABS: Alanine Aminotransferase 29 U/L (12-78); Albumin Level 3.9 gm/dl (3.4-5.0); Aspartate Aminotransferase 26 U/L (15-37); BUN Creatinine Ratio 26.2 (10-20); Blood Urea Nitrogen 21 mg/dl (7-18); Calcium 8.9 mg/dl (8.5-10.1); Carbon Dioxide 25 mmol/L (21-32); Chloride 107 mmol/L (98-107); Est GFR (African American) 107.1 ml/min; Est GFR (Non-African American) 92.4 ml/min; Glucose 108 mg/dl (70-99); Magnesium 2.3 mg/dl (1.8-2.4); Sodium 139 mmol/L (136-145)
[2020-08-18 14:46] LABS: Albumin Globulin Ratio 1.1 (0.9-2); Alkaline Phosphatase 60 U/L (45-117); Bilirubin,Total 0.6 mg/dl (0.2-1); Globulin 3.5 gm/dl (2.5-4.0); Thyroid Stimulating Hormone 0.554 uIu/ml (0.300-4.500); Total Protein 7.4 gm/dl (6.4-8.2); Troponin I < 0.015 ng/ml (0-0.045)
[2020-08-18] MEDS ORDERED: OPTIRAY 320 100ml IV ONE (15:25)
--- NOTE | 2020-08-18 15:33 | CT Scan Report ---
CT cervical spine wo con CT DOSE: 3642.93 mGy.cm CLINICAL HISTORY: 65 years-old Male with Frequent falls, trauma. Acute head and neck injury status p ost fall COMPARISON: Head CT of same day TECHNIQUE: Multiple axial CT images of the cervical spine were obtained without contrast. A dose low ering technique was utilized adhering to the principles of ALARA. FINDINGS: Straightening of the normal cervical lordosis. Moderate multilevel intervertebral disc spac e narrowing with severe facet arthrosis. Degenerative bony fusion of the left C4-C5 facets. 3 mm ante rolisthesis C3 on C4 and C4 on C5, likely secondary to chronic severe facet arthrosis. Mild mid cervi trinity dextroscoliosis. No acute fracture or subluxation. Multilevel neural foraminal narrowing. No pneumothorax. No prevertebral edema. Calcified plaque the carotid bulbs. IMPRESSION: No acute fracture or subluxation. ACT 112: Negative or not required by law. The above report was generated using voice recognition software. It may contain grammatical, syntax o r spelling errors. Electronically signed by: Jon Rowan M.D. 08/18/2020 3:32 PM
--- NOTE | 2020-08-18 15:43 | CT Scan Report ---
CT OF THE CHEST WITH IV CONTRAST CLINICAL HISTORY: Frequent falls, R sided rib pain COMPARISON STUDY: No previous studies for comparison. TECHNIQUE: Following IV administration of 93 mL of Optiray, helical axial images of the chest were o btained. Sagittal and coronal reconstructions were viewed as well as maximal intensity projections o n an independent 3-D workstation. Automated exposure control was utilized for the study. A dose low ering technique was utilized adhering to the principles of ALARA. FINDINGS: There is no evidence for traumatic injury to the thoracic aorta. No mediastinal hematoma i s present. There is no thoracic lymphadenopathy. The size of the heart is normal. There is moderate c oronary artery calcification. There is no pericardial effusion. No pneumothorax or pleural effusion i s present. There is mild emphysema. Linear opacities reflect atelectasis. There is no contusion withi n the lungs. A healing anterior right eighth rib fracture is noted. There aren't no acute rib fractur es. No acute thoracic spine fracture is present. IMPRESSION: 1. No acute traumatic findings within the chest. 2. Healing anterior right eighth rib fracture. No pneumothorax. No acute rib fractures identified. ACT 112: Negative or not required by law. Electronically signed by: Raheel Chaidez M.D. 08/18/2020 3:41 PM
--- NOTE | 2020-08-18 15:44 | CT Scan Report ---
HEAD CT NONCONTRAST CT DOSE: HISTORY: frequent falls, extremities numb/weak TECHNIQUE: Multiaxial CT images of the head were performed without the use of intravenous contrast. A utomated exposure control was utilized for this study. A dose lowering technique was utilized adheri ng to the principles of ALARA. Comparison: None. Findings: The paranasal sinuses and mastoid air cells are clear. The calvarium and skull base are int act. The ventricles and sulci are within normal limits. There is no mass, hematoma, midline shift, or acute infarct. Impression: No acute intracranial abnormality. ACT 112: Negative or not required by law. Electronically signed by: Javier Tam M.D. 08/18/2020 3:42 PM
--- NOTE | 2020-08-18 15:44 | CT Scan Report ---
CT lumbar spine w con CT DOSE: CLINICAL HISTORY: Urinary difficulties, frequent falls TECHNIQUE: The patient was scanned following administration of 93 cc of Optiray 320. Helical images w ere acquired. Sagittal coronal reformatted images were created. A dose lowering technique was utiliz ed adhering to the principles of ALARA. COMPARISON STUDY: None. FINDINGS: No acute fractures or traumatic subluxations are visualized. L1-2 level: There is no evidence of significant disc bulge or focal herniation. There is no evidence spinal or foraminal stenosis L2-3 level: There is a mild circumferential disc bulge. There is mild spinal stenosis. There is no si gnificant foraminal narrowing. L3-4 level: There is a circumferential disc bulge. There is moderate spinal stenosis. There is no spe cific and foraminal narrowing. L4-5 level: There is marked disc degeneration with discogenic and plate sclerosis. There is a circumf erential disc bulge. There is moderate spinal stenosis. There is bilateral foraminal narrowing. L5-S1 level: There is mild posterior spurring. No focal herniations are visualized. There is no signi ficant spinal stenosis. There is mild bilateral foraminal narrowing. IMPRESSION: 1. No acute fractures or traumatic subluxations 2. Multilevel degenerative change with moderate spinal stenosis at the L3-4 and L4-5 levels. ACT 112: Negative or not required by law. Electronically signed by: Giancarlo Garcai M.D. 08/18/2020 3:43 PM
--- NOTE | 2020-08-18 15:46 | CT Scan Report ---
ABDOMEN AND PELVIS CT WITH IV CONTRAST HISTORY: Acute pelvic pain status post fall Frequent falls, R sided rib pain, Suprapubic pain TECHNIQUE: Multiaxial CT images of the abdomen and pelvis were performed following the IV administrat ion of 93 cc of Optiray, A dose lowering technique was utilized adhering to the principles of ALARA. COMPARISON STUDY: CT lumbar spine study of same day FINDINGS: Clear lung bases. No pneumatosis or pneumoperitoneum. The spleen, liver, gallbladder, pancr eas and adrenal glands are unremarkable. The kidneys are within normal limits. No hydronephrosis. Mil d to moderate urinary bladder wall thickening with perivesicular stranding and trace free pelvic flui d. Mild prostamegaly. Moderate to advanced atherosclerotic plaque the abdominal aorta and branch vess els. Mild fusiform aneurysmal dilation of the infrarenal abdominal aorta, 3.0 x 3.0 cm. No adenopathy . No bowel obstruction or bowel wall thickening. Colonic diverticulosis. Normal appendix. Tiny fat fill ed periumbilical hernia. Degenerative changes of the spine, pelvis and hips. Healing subacute nondisp laced fracture of the anterior right eighth rib. No acute fracture identified. IMPRESSION: 1. Prostamegaly with urinary bladder wall thickening, perivesicular stranding and trace perivesicular free fluid. Findings are suggestive of cystitis. Correlate with urinalysis. 2. No bowel obstruction or bowel wall thickening. Normal appendix. 3. Healing subacute nondisplaced fracture of the anterior right eighth rib. 4. Fusiform aneurysmal dilation of the infrarenal abdominal aorta, 3.0 cm. 5. Additional findings as above. ACT 112: Negative or not required by law. The above report was generated using voice recognition software. It may contain grammatical, syntax o r spelling errors. Electronically signed by: Jon Rowan M.D. 08/18/2020 3:45 PM
[2020-08-18] MEDS ORDERED: ALBUTEROL HFA 8 GM INHALER INH ONE (15:54)
--- NOTE | 2020-08-18 17:49 | History & Physical Report ---
Date of Service August 18, 2020 Assessment & Plan (1) Idiopathic polyneuropathy: 65 y/o M w/ hx of HLD, VT, COPD, tobacco use, RLS, hx of sz, and a 1.5 years of idiopathic polyneuropathy who has had increasing extremity weakness and falls. The physical exam showed mostly normal strength with exception of R foot. Exam did not suggest radicular symptoms of hips or lower extremity. Urinary symptoms more likely from BPH and does not appear to be consistent w/ saddle anesthesia. - consult neuro for further workup and to explore management of idiopathic polyneuropathy - hold home Trileptal at patient's request because he states it worsens his RLS symptoms - continue home baclofen 20 BID (2) Falls: - etiology appears to be from lower extremity symptoms as opposed to from lightheadness or near syncope - imaging reviewed; no acute fracture. healing R 8th rib old fracture - fall precautions (3) UTI (urinary tract infection): - UA suggestive of infection. culture sent - patient w/ urinary symptoms - will treat w/ ceftriaxone (4) Incontinence of urine: - bladder scan suggests retention - rashid placed w/ some relief of suprapubic discomfort - start flomax (5) COPD (chronic obstructive pulmonary disease): - continue home inhalers (6) RLS (restless legs syndrome): - chronic, stable continue home ropinirole (7) HLD (hyperlipidemia): - stable, continue home statin (8) CAD (coronary artery disease): - stable, ecg w/o ischemic changes, continue home baby ASA FEN/GI: heart healthy diet. no IVF ppx: lovenox 40 sq qd code: DNR/DNI dispo: med/surg History of Present Illness Chief Complaint: fall Primary Care Provider: Sami Shannon 65 y/o M w/ hx of HLD, CAD w/ stent, COPD, RLS, and a 1.5 years of idiopathic polyneuropathy who has had increasing paresthesias of his extremities and weakness of lower extremities leading to falls. His symptoms started after he twisted his neck while getting off a bus in February 2019. The paresthesias started and he fell from both legs "giving out" 2 weeks later. His hands and feet feel heavy and "frozen." He has had chronic back and neck pain since then as well. Patient notes that his symptoms have persisted and worsened and increased frequency over the past year. 07/2019 EEG suggested idiopathic polyneuropathy. Patient states MS and lyme testing returned negative. He presented to the ED today after having 3 falls in the past week. His baseline has been wheelchair bound x 10 months because of his legs feeling weak/numb and this has mostly not changed. Patient has also had difficulty voiding and urinary incontinence x 3 months along with dysuria. He states that there was discussion of potentially starting Flomax. Denies recent substance use. Denies LOC. Allergies Allergy/AdvReac Type Severity Reaction Status Date / Time gemfibrozil [From Lopid] Allergy Unknown Unverified 08/18/20 15:16 Home Medications Medication Instructions Recorded Confirmed Type acetaminophen 1,000 mg PO TID PRN 08/18/20 08/18/20 History acidophilus-pectin, citrus 1 cap PO TID 08/18/20 08/18/20 History [Acidophilus Probiotic] aspirin 81 mg PO DAILY 08/18/20 08/18/20 History atorvastatin 40 mg PO DAILY 08/18/20 08/18/20 History baclofen 20 mg PO BID 08/18/20 08/18/20 History ciclesonide [Alvesco] 1 puff INHALATION BID 08/18/20 08/18/20 History diclofenac sodium 50 mg PO TID 08/18/20 08/18/20 History fluoxetine 80 mg PO DAILY 08/18/20 08/18/20 History levalbuterol tartrate [Xopenex HFA] 2 inh INHALATION Q6H PRN 08/18/20 08/18/20 History loperamide [Imodium A-D] 2 mg PO QID PRN 08/18/20 08/18/20 History oxcarbazepine [Trileptal] 150 mg PO BID 08/18/20 08/18/20 History ropinirole 1 mg PO HS 08/18/20 08/18/20 History Past Med/Surg History Medical History (Updated 08/18/20 @ 19:27 by Govind Short MD) CAD (coronary artery disease) HLD (hyperlipidemia) Idiopathic polyneuropathy Seizure disorder Surgical History (Updated 08/18/20 @ 18:02 by Govind Short MD) H/O toe surgery History of carpal tunnel release of both wrists Stented coronary artery Family History (Updated 08/18/20 @ 18:03 by Govind Short MD) Mother Diabetes Father Coronary heart disease Diabetes Myocardial infarction Social History Smoking Status: Former smoker Tobacco Type: Cigarettes Preferred Language: Kyr[place]z Feels Safe at Home: Yes Review of Systems Review of Systems: Constitutional: Denies fever, chills Eyes: Denies new blurry vision. Hx cataracts ENT: Denies sore throat, sinus pain Cardiovascular: Denies Chest pain, chest pressure, palpitations Respiratory: Denies shortness of breath, cough, sputum production, difficulty breathing Gastrointestinal: Denies nausea, vomiting, constipation, diarrhea. + abd pain above bladder. Genitourinary: See HPI. + dysuria x 2 months. no hematuria. Musculoskeletal: See HPI. Neurological: chronic headaches. No seizures in 15 years. Has RLS. Numbness/tingling/loss of sensation in hands, up to mid forearm and feet, up to hips. worsened x 6 months. Shock sensation down neck x 6 months, started after a fall. Physical Exam Physical Exam: Vitals reviewed. Slightly hypertensive. Stable. General: A&Ox4. NAD. Cooperative. Patient is in restraints and accompanied by custodial guards. HEENT: Atraumatic, normocephalic. EOMI. PERRL, 2mm. + spurling test. + ttp at c spine. Pulm: CTAB anteriorly. -wheezes, -rales, -rhonchi. No respiratory distress. Cardiac: RRR, -mrg. Radial pulses intact and symmetrical. 1+ edema on R. Abdominal: Nondistended, soft. mild suprapubic and R rib discomfort Neuro: Patellar reflexes 2+ bilaterally. Neg SLR. Bilateral handgrip 4+/5 strength. Good muscle tone. Other BUE strength 5+/5. Slight footdrop R foot. Sensation decreased to light touch feet to knees and hands to mid forearm. Results & Data Results & Data ([facility]) Vital Signs (Past 12 Hours) Vital Signs Temp Pulse Pulse Resp BP BP Pulse Ox 08/18/20 16:20 78 74 36 H 100 08/18/20 16:16 76 15 181/115 H 08/18/20 16:10 77 19 97 08/18/20 16:01 79 19 201/98 H 97 08/18/20 16:00 74 22 79 L 08/18/20 15:50 75 16 97 08/18/20 15:48 74 19 179/101 H 97 08/18/20 15:47 78 24 170/134 H 97 08/18/20 15:40 77 23 97 08/18/20 15:31 76 20 152/107 H 80 L 08/18/20 15:30 69 25 H 08/18/20 15:26 80 23 94 08/18/20 15:00 74 23 160/94 H 96 08/18/20 14:51 79 18 98 08/18/20 14:49 75 19 156/98 H 96 08/18/20 14:40 71 19 96 08/18/20 14:30 76 76 21 161/94 H 160/94 H 95 08/18/20 14:20 76 23 95 08/18/20 14:10 107 H 17 97 08/18/20 14:02 77 18 153/99 H 95 08/18/20 14:00 78 17 153/99 H 95 08/18/20 13:50 77 15 08/18/20 13:40 78 25 H 08/18/20 13:31 77 29 H 08/18/20 13:30 82 28 H 161/93 H 08/18/20 13:20 83 22 08/18/20 13:10 82 18 08/18/20 13:01 86 29 H 95 08/18/20 13:00 85 18 128/101 H 93 08/18/20 12:51 80 21 95 08/18/20 12:47 83 19 151/89 H 95 08/18/20 12:27 36.6 C 84 18 142/93 H 92 Laboratory Results - hb 11.8. no leukocytosis. cmp ok. trop neg 1. tsh 0.554. covid neg - UA cloudy. 3+ blood, positive nitrite, 2+ leuk esterase, >30rbc, >30wbc, 4+ urine bacteria Diagnostic Findings - 07/18/19 emg showed significant polyneuropathy, involving sensory and motor fibers of mixed pathology. No evidence of myopathy or radiculopathy. - 08/18/20 imaging: lumbar ct, L hand xr, head ct, chest ct, c spine ct, abd pelv ct. no acute changes. healing r 8th rib fx ECG Additional Comments: - ecg nsr Code Status & VTE Plan Code Status DNR/DNI Supervising Physician Co-Signing Physician Notes Discussed patient with the resident at length, other than above. Patient has progressive polyneuropathy, I see neurology the past but has not followed over a year. Feels this is worsening and he is having worsening falls. Also of note, patient has a urinary retention. Rashid was inserted with good diuresis. Unclear if this is post renal obstruction versus neurologic bladder. For now, will continue to monitor urine output. UA noted, empiric treatment with Rocephin. We will ask neurology to evaluate for further recommendations regarding how to further approaches polyneuropathy. Resident Activity Tracking Resident Involvement: Resident Care Provided Care Provided: Adult Hospital Medicine
[2020-08-18 18:39] LABS: Bacteria Urine Automated 4+ (Negative); Bilirubin Urine Negative (Negative); Blood Urine 3+ (Negative); Color Urine Yellow; Epithelial Cell Urine Auto 0-5 /lpf (0-5); Glucose Urine UA Negative (Negative); Ketones Urine Trace (Negative); Leukocyte Esterase Urine 2+ (Negative); Nitrite Urine Positive (Negative); Protein Urine Trace (Negative); RBC Urine Automated >30 /hpf (0-4); Specific Gravity Urine 1.044 (1.000-1.030); Urobilinogen Urine Positive (Negative); WBC Urine Automated >30 /hpf (0-5)
[2020-08-18 18:40] LABS: Appearance Urine Cloudy (Clear)
[2020-08-18] MEDS: rOPINIRole HCL 1 MG TABLET PO SCH (22:14)
[2020-08-18] MEDS: cefTRIAXone SODIUM 2,000 MG in DEXTROSE 5% 50 ML IV SCH (22:14)
[2020-08-18] MEDS: BACLOFEN 20 MG TAB PO SCH (22:14)
[2020-08-18] MEDS: ENOXAPARIN INJ 40 MG/0.4 ML SYR SQ SCH (22:14)
[2020-08-18] MEDS: TAMSULOSIN HCL 0.4 MG CAP PO SCH (22:14)
[2020-08-19] MEDS: ACETAMINOPHEN 500 MG TAB PO PRN (06:21)
[2020-08-19 07:12] LABS: Basophils # (auto) 0.01 K/uL (0-0.2); Basophils % (auto) 0.1 %; Eosinophils # (auto) 0.08 K/uL (0-0.5); Eosinophils % (auto) 0.9 %; Hematocrit (blood only) 35.2 % (42-52); Hemoglobin 11.9 g/dL (14.0-18.0); Immature Granulocytes # (auto) 0.01 K/uL (0.00-0.02); Immature Granulocytes % (auto) 0.1 %; Lymphocytes # (auto) 0.73 K/uL (1.2-3.4); Lymphocytes % (auto) 8.1 %; Mean Corpuscular Hemoglobin 33.2 pg (25-34); Mean Corpuscular Hgb Conc 33.8 g/dL (32-36); Mean Corpuscular Volume 98.3 fL (80-100); Mean Platelet Volume 9.6 fL (7.4-10.4); Monocytes # (auto) 0.87 K/uL (0.11-0.59); Monocytes % (auto) 9.6 %; Neutrophils # (auto) 7.34 K/uL (1.4-6.5); Neutrophils % (auto) 81.2 %; Platelet Count 178 K/uL (130-400); RDW Coefficient of Variation 13.2 % (11.5-14.5); RDW Standard Deviation 47.2 fL (36.4-46.3); Red Blood Count 3.58 M/uL (4.7-6.1); White Blood Count 9.04 K/uL (4.8-10.8)
[2020-08-19 07:44] LABS: BUN Creatinine Ratio 21.4 (10-20); Calcium 8.9 mg/dl (8.5-10.1); Creatinine Clr Calc Pharmacy 132.5 ml/min; Est GFR (African American) 110.6 ml/min; Est GFR (Non-African American) 95.4 ml/min
[2020-08-19 08:13] LABS: Folate (Folic Acid) > 20.00 ng/ml (>5.38); Vitamin B12 354 pg/ml (193-986)
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
[2020-08-19] MEDS: FLUoxetine HCL 20 MG CAP PO SCH (09:17)
[2020-08-19] MEDS: ASPIRIN 81 MG CHEW PO SCH (09:17)
[2020-08-19] MEDS: ATORVASTATIN 40 MG TAB PO SCH (09:17)
[2020-08-19] MEDS: BACLOFEN 20 MG TAB PO SCH ×2 (09:17→22:04)
[2020-08-19] MEDS: FLUTICASONE FUROATE 200MCG 14 PUFFS/INHALER INH SCH (09:18)
[2020-08-19] MEDS: POLYETHYLENE (MIRALAX) 17 GM PACK PO SCH ×2 (09:29→22:03)
--- NOTE | 2020-08-19 18:46 | Billing Data ---
Date of Service August 19, 2020 Coding Level of Care Code 94259 Subseq Hosp Care Lvl 3
[2020-08-19] MEDS: ENOXAPARIN INJ 40 MG/0.4 ML SYR SQ SCH (22:01)
[2020-08-19] MEDS: TAMSULOSIN HCL 0.4 MG CAP PO SCH (22:02)
[2020-08-19] MEDS: rOPINIRole HCL 1 MG TABLET PO SCH (22:02)
[2020-08-19] MEDS: GABAPENTIN 300 MG CAP PO SCH (22:04)
[2020-08-19] MEDS: cefTRIAXone SODIUM 2,000 MG in DEXTROSE 5% 50 ML IV SCH (22:21)
--- NOTE | 2020-08-20 06:10 | Electrocardiogram Report ---
Test Reason : Blood Pressure : / mmHG Vent. Rate : 076 BPM Atrial Rate : 076 BPM P-R Int : 146 ms QRS Dur : 094 ms QT Int : 406 ms P-R-T Axes : 062 032 064 degrees QTc Int : 456 ms Normal sinus rhythm Low voltage QRS Possible Inferior infarct No previous ECGs available Confirmed by Dm Odom ([id number]) on 08/20/2020 6:10:29 AM Referred By: Lisa TERESA Confirmed By:Dm Odom
[2020-08-20 08:18] LABS: Albumin Level 3.6 gm/dl (3.4-5.0); BUN Creatinine Ratio 26.2 (10-20); Calcium 9.2 mg/dl (8.5-10.1); Est GFR (African American) 109.4 ml/min; Est GFR (Non-African American) 94.4 ml/min
[2020-08-20 08:21] LABS: Bilirubin,Total 0.7 mg/dl (0.2-1); Globulin 3.7 gm/dl (2.5-4.0); Total Protein 7.3 gm/dl (6.4-8.2)
--- NOTE | 2020-08-20 09:18 | Hospitalist Progress Note ---
Date of Service August 20, 2020 Assessment & Plan (1) Idiopathic polyneuropathy: 65 y/o M w/ hx of HLD, NV, COPD, tobacco use, RLS, hx of sz, and a 1.5 years of idiopathic polyneuropathy who has had increasing extremity weakness and falls, worsening over the last 3 months. #UTI Patient reports a 3-month history of urinary tract symptoms beginning in his cell. He was sitting in his cell when he experienced incontinence, he presented to the [facility] to have the symptoms evaluated and they were supposed to start him on Flomax. Patient did not have improvement in his symptoms noting foul- smelling dark urine urine 4 weeks. The patient was never given a urine culture, nor started on antibiotics. On admission UA demonstrating 4+ bacteria, dark yellow/red color. Patient reporting longstanding history of constipation not adequately treated, having bowel movements every other day or longer. Started on MiraLAX twice daily today. Last bowel movement 2 days ago suspect combination of constipation and bph led to urinary retention and UTI. Urinary retention noted on CT scan Garcia catheter placed. Patient reporting clots in his urine, and questioning the patency of his catheter bag -Urology consulted appreciate recommendations -Recommend further work-up as an outpatient -Maintain Garcia for 7 to 10 days, irrigate catheter as needed -Continue Flomax, to consider dual therapy with finasteride or interested tied for BPH -Outpatient cystoscopy and TURBT -Cultures demonstrated Klebsiella resistant to cefazolin -Continue CTX day 2 on discharge transition to p.o. Augmentin -Monitor vital signs -Trend white count #Idiopathic polyneuropathy The physical exam showed mostly normal strength with exception of R foot. Exam did not suggest radicular symptoms of hips or lower extremity. Urinary symptoms more likely from BPH and does not appear to be consistent w/ saddle anesthesia. Suspect worsening of polyneuropathy secondary to chronic urinary tract infection. Optimistic symptoms will improve with treatment of urinary tract infection. Has had extensive work-up as an outpatient with Dr. Hannah, no clear etiology of his neuropathy. - Reports improvement in his symptoms today - hold home Trileptal at patient's request because he states it worsens his RLS symptoms - continue home baclofen 20 BID #Falls Head to toe CT scans on admission negative for acute fractures or other injuries, cystitis as discussed above. Etiology appears to be secondary to worsening lower extremity weakness secondary to UTI. Suspect improvement with treatment of UTI. - imaging reviewed; no acute fracture. healing R 8th rib old fracture - fall precautions - PT OT consulted #Constipation as above #Incontinence of urine As above - start flomax #COPD - continue home inhalers #Restless leg syndrome - chronic, stable continue home ropinirole #CAD stable, ecg on admission w/o ischemic changes, continue home baby ASA. -Continue home atorvastatin FENa:Heart healthy Code Status: DNR/DNI DVT PPX: Lovenox PT/OT: Ordered Dispo: [facility] anticipate d/c tomorrow Brenton Díaz MD PGY 2, FCM This chart was completed utilizing [employer] voice recognition software. Grammatical errors, random word insertions, pronoun errors, and in complete sentences are an occasional consequence of the system. Any questions or concerns about the content, text, or information contained within the body of this dictation should be addressed directly to the physician for clarification. Admission and Anticipated Discharge Date Admission Date: August 18, 2020 Supervising Physician Co-Signing Physician Notes I personally examined the patient and verified all wallace points of history and exam, discussed case, and agree with decision making with Dr Díaz. Heel pain is better. Fingers he just bruised it. Notes prior to Garcia being in place, for quite a while preceding admission, he would pee about an ounce and a half and not be able to void any further, and then almost immediately feel like he had to pee again. This has been going on probably for months. Blood in his urine is only been since Garcia was placed, and he believes it is clearing. Vitals noted, in general he is awake and alert pleasant no distress. HEENT normocephalic atraumatic mucous membranes moist. Breathing unlabored no accessory muscle use good effort. He is moving his legs fairly rapidly and frequently. Garcia in place draining dark urine. UTInot consistent with prostatitis, but suspect BPH causing stagnant urine drainage leading to infection. Continue to treat infectionfortunately sensitive to most antibiotics. Urology input appreciatedwill definitely need ongoing management for what appears to be fairly severe BPH. Anticipate hematuria clearing. Restless legs and idiopathic polyneuropathyfeeling largely better on gabapentin again. Continue this at 300 mg twice daily. ongoing outpatient neurology follow-up DVT prophylaxisLovenox Otherwise as above Subjective Patient lying in bed this morning in no acute distress. Reports blood clots in his urine overnight, and questions for catheters patency. Otherwise patient reports improvement in his restless legs and left lower extremity weakness. Acute concerns relate to catheter all questions answered. Physical Exam Physical Exam: General: Lying in bed no acute distress HEENT: Normal cephalic atraumatic Neck: Normal to visual inspection, trachea midline Cardiac: Regular rate and rhythm I do not appreciate significant murmurs rubs or gallops, normal S1, normal S2, 1+ pedal edema, negative calf tenderness Respiratory: Clear to auscultation bilaterally with symmetrical chest expansion did not appreciate any significant wheezes, rales, rhonchi GI: Soft, nontender, distended, bowel sounds present, suprapubic tenderness, dark appearing urine in catheter bag MSK: Moves all extremity, some left lower extremity weakness 4 out of 5 with pedal/dorsi flexion Neuro: Alert and oriented x4 Results & Data Results & Data ([facility]) Vital Signs (Past 12 Hours) Vital Signs Temp Pulse Resp BP Pulse Ox 08/20/20 07:30 36.6 C 89 18 144/72 H 91 Laboratory Results 08/20/20 08/20/20 Range/Units 07:33 07:33 WBC 8.08 (4.8-10.8) K/uL RBC 3.65 L (4.7-6.1) M/uL Hgb 11.9 L (14.0-18.0) g/dL Hct 36.1 L (42-52) % MCV 98.9 (80-100) fL MCH 32.6 (25-34) pg MCHC 33.0 (32-36) g/dL RDW Std Deviation 47.5 H (36.4-46.3) fL RDW Coeff of Dinesh 13.2 (11.5-14.5) % Plt Count 200 (130-400) K/uL MPV 10.1 (7.4-10.4) fL Immature Gran % (Auto) 0.1 % Neut % (Auto) 79.1 % Lymph % (Auto) 10.4 % Gaston % (Auto) 8.3 % Eos % (Auto) 2.0 % Baso % (Auto) 0.1 % Neut # (Auto) 6.39 (1.4-6.5) K/uL Lymph # (Auto) 0.84 L (1.2-3.4) K/uL Gaston # (Auto) 0.67 H (0.11-0.59) K/uL Eos # (Auto) 0.16 (0-0.5) K/uL Baso # (Auto) 0.01 (0-0.2) K/uL Immature Gran # (Auto) 0.01 (0.00-0.02) K/uL Sodium 136 (136-145) mmol/L Potassium 4.0 (3.5-5.1) mmol/L Chloride 106 (98-107) mmol/L Carbon Dioxide 24 (21-32) mmol/L Anion Gap 7.0 (3-11) BUN 20 H (7-18) mg/dl Creatinine 0.76 (0.6-1.4) mg/dl Est Cr Clr Drug Dosing 129.0 ml/min Est GFR ( Amer) 109.4 ml/min Est GFR (Non-Af Amer) 94.4 ml/min BUN/Creatinine Ratio 26.2 H (10-20) Glucose 106 H (70-99) mg/dl Calcium 9.2 (8.5-10.1) mg/dl Total Bilirubin 0.7 (0.2-1) mg/dl AST 20 (15-37) U/L ALT 26 (12-78) U/L Alkaline Phosphatase 56 (45-117) U/L Total Protein 7.3 (6.4-8.2) gm/dl Albumin 3.6 (3.4-5.0) gm/dl Globulin 3.7 (2.5-4.0) gm/dl Albumin/Globulin Ratio 1.0 (0.9-2) Medications Administered Current Inpatient Medications Acetaminophen (Acetaminophen 500 Mg Tab) 1,000 mg PO TID PRN PRN Reason: Pain Stop: 09/17/20 21:23 Last Admin: 08/19/20 06:21 Dose: 1,000 mg Documented by: Aspirin (Aspirin 81 Mg Chew) 81 mg PO DAILY KILEY Stop: 09/18/20 08:59 Last Admin: 08/20/20 10:40 Dose: 81 mg Documented by: Atorvastatin Calcium (Atorvastatin 40 Mg Tab) 40 mg PO DAILY KILEY Stop: 09/18/20 08:59 Last Admin: 08/20/20 11:23 Dose: 40 mg Documented by: Baclofen (Baclofen 20 Mg Tab) 20 mg PO BID [facility] Stop: 09/17/20 21:59 Last Admin: 08/20/20 10:39 Dose: 20 mg Documented by: Enoxaparin Sodium (Enoxaparin Inj 40 Mg/0.4 Ml Syr) 40 mg SQ Q24H [facility] Stop: 09/17/20 21:59 Last Admin: 08/19/20 22:01 Dose: 40 mg Documented by: Fluoxetine HCl (Fluoxetine Hcl 20 Mg Cap) 80 mg PO DAILY [facility] Stop: 09/18/20 08:59 Last Admin: 08/20/20 10:39 Dose: 80 mg Documented by: Fluticasone Furoate (Fluticasone Furoate 200mcg 14 Puffs/Inhaler) 1 puffs INH DAILY [facility]; Protocol Stop: 09/18/20 08:59 Last Admin: 08/20/20 10:41 Dose: 1 puffs Documented by: Gabapentin (Gabapentin 300 Mg Cap) 300 mg PO BID [facility] Stop: 09/18/20 20:59 Last Admin: 08/20/20 10:39 Dose: 300 mg Documented by: Ceftriaxone Sodium 2,000 mg/ (Dextrose) 70 mls @ 100 mls/hr IV Q24H [facility]; Protocol Stop: 08/28/20 21:59 Last Infusion: 08/19/20 23:22 Dose: Infused Documented by: Levalbuterol HCl (Levalbuterol Tartrate 15 Gm Hfa.Aer.Ad) 2 puffs INH Q6R PRN PRN Reason: Shortness Of Breath Or Wheezin Stop: 09/17/20 20:57 Polyethylene Glycol (Polyethylene (Miralax) 17 Gm Pack) 17 gm PO BID [facility] Stop: 09/18/20 08:59 Last Admin: 08/20/20 10:41 Dose: 17 gm Documented by: Ropinirole HCl (Ropinirole Hcl 1 Mg Tablet) 1 mg PO [facility] Stop: 09/17/20 21:59 Last Admin: 08/19/20 22:02 Dose: 1 mg Documented by: Tamsulosin HCl (Tamsulosin Hcl 0.4 Mg Cap) 0.4 mg PO [facility] Stop: 09/17/20 21:59 Last Admin: 08/19/20 22:02 Dose: 0.4 mg Documented by: Resident Activity Tracking Resident Involvement: Resident Care Provided Care Provided: Adult [facility] Medicine
[2020-08-20 09:33] LABS: Basophils # (auto) 0.01 K/uL (0-0.2); Basophils % (auto) 0.1 %; Eosinophils # (auto) 0.16 K/uL (0-0.5); Hematocrit (blood only) 36.1 % (42-52); Hemoglobin 11.9 g/dL (14.0-18.0); Immature Granulocytes # (auto) 0.01 K/uL (0.00-0.02); Immature Granulocytes % (auto) 0.1 %; Lymphocytes # (auto) 0.84 K/uL (1.2-3.4); Lymphocytes % (auto) 10.4 %; Mean Corpuscular Hemoglobin 32.6 pg (25-34); Mean Corpuscular Volume 98.9 fL (80-100); Mean Platelet Volume 10.1 fL (7.4-10.4); Monocytes # (auto) 0.67 K/uL (0.11-0.59); Monocytes % (auto) 8.3 %; Neutrophils # (auto) 6.39 K/uL (1.4-6.5); Neutrophils % (auto) 79.1 %; Platelet Count 200 K/uL (130-400); RDW Coefficient of Variation 13.2 % (11.5-14.5); RDW Standard Deviation 47.5 fL (36.4-46.3); Red Blood Count 3.65 M/uL (4.7-6.1); White Blood Count 8.08 K/uL (4.8-10.8)
--- NOTE | 2020-08-20 10:19 | Urology Consultation ---
Date of Consultation August 20, 2020 Assessment & Plan (1) UTI (urinary tract infection): (2) Acute urinary retention: 65yo M admitted with increasing extremity weakness and falls and found to have urinary retention with UTI. - Hospital course, CT imaging, urine/labs reviewed. Past medical hx reviewed. - Reviewed imaging and plan of care with Dr. Martins. - CT abdomen pelvis notable for prostatomegaly with urinary bladder wall thickening. - Patient with urinary retention and UTI likely secondary to BPH and incomplete bladder emptying. - Urine culture positive for Klebsiella, on IV Ceftriaxone. - Discussed CT findings in detail with patient. Discussed further work-up with cystoscopy as an outpatient. - He is agreeable. - Maintain rashid catheter, recommend keeping catheter at least 7-10 days or until follow-up with urology. - OK to irrigate catheter as needed for clots, retention, suprapubic pain. - Recommend continue flomax, consider dual therapy with Finasteride or Dutasteride for BPH. - Continue supportive care and antibiotic therapy. - Will arrange outpatient follow-up with urology for cystoscopy and voiding trial if patient still has catheter at that time. - Thank you for allowing us to participate in the acute care of Mr. Nichole. - Please reconsult us with additional questions, concerns or changes in patient status. History of Present Illness Reason for Consultation: UTI, clots in catheter Attending Physician: Kodi Bajwa DO History of Present Illness The patient is a 65 year-old male who presented to the ER on 08/18/20 with complaints of increasing paresthesias of his extremities and weakness of lower extremities leading to falls. He also reported difficulty voiding, dysuria, and urinary incontinence for approximately 3 months. Urology consulted for clots in cath, prolonged UTI Past medical and surgical hx significant for HLD, CAD w/ stent, COPD, RLS, Idiopathic polyneuropathy. On admission, he was afebrile, Wbc 8.29, Hgb 11.8, Cr 0.76. Urinalysis was nitrite positive, >30RBC, >30WBC, 4+bacteria. Urine culture grew Klebsiella. He was bladder scanned in the ER for 1,000ml and a rashid catheter was placed. CT abdomen pelvis . Prostatomegaly with urinary bladder wall thickening, perivesicular stranding and trace perivesicular free fluid. Findings are suggestive of cystitis. Correlate with urinalysis. 2. No bowel obstruction or bowel wall thickening. Normal appendix. 3. Healing subacute nondisplaced fracture of the anterior right eighth rib. 4. Fusiform aneurysmal dilation of the infrarenal abdominal aorta, 3.0 cm. 5. Additional findings as above. Patient reports an approximate 3-month history of urinary tract symptoms including difficulty with urination, dysuria, and incontinence. He also reports urinary urgency and frequency. Denies hematuria. [facility] of symptoms. He stated he was suppose to start on Flomax but never did. A rashid catheter was also placed at one point as he was unable to urinate for > 8 hrs. The catheter was later removed. Patient examined at bedside. He is awake, alert, non-toxic appearing. He reports feeling much better since admission. Denies back, flank, and suprapubic pain. Denies fevers or chills. Tolerating diet, no nausea or vomiting. Rashid catheter intact, draining tea-colored urine. He is currently on Flomax. Continues on IV Ceftriaxone for Klebsiella positive culture. His baseline has been wheelchair bound x 10 months because of his legs feeling weak/numb and this has mostly not changed. Patient denies prior hx of urological issues. He has not seen a urologist in the past. Denies personal and family hx of prostate, bladder, or kidney cancers. He is unsure if he has ever had a PSA level checked. He reports his last DIONY ~2005. Offers no additional complaints today Allergies Allergy/AdvReac Type Severity Reaction Status Date / Time gemfibrozil [From Lopid] Allergy Unknown Unverified 08/18/20 15:16 Home Medications Medication Instructions Recorded Confirmed Type acetaminophen 1,000 mg PO TID PRN 08/18/20 08/18/20 History acidophilus-pectin, citrus 1 cap PO TID 08/18/20 08/18/20 History [Acidophilus Probiotic] aspirin 81 mg PO DAILY 08/18/20 08/18/20 History atorvastatin 40 mg PO DAILY 08/18/20 08/18/20 History baclofen 20 mg PO BID 08/18/20 08/18/20 History ciclesonide [Alvesco] 1 puff INHALATION BID 08/18/20 08/18/20 History diclofenac sodium 50 mg PO TID 08/18/20 08/18/20 History fluoxetine 80 mg PO DAILY 08/18/20 08/18/20 History levalbuterol tartrate [Xopenex HFA] 2 inh INHALATION Q6H PRN 08/18/20 08/18/20 History loperamide [Imodium A-D] 2 mg PO QID PRN 08/18/20 08/18/20 History oxcarbazepine [Trileptal] 150 mg PO BID 08/18/20 08/18/20 History ropinirole 1 mg PO HS 08/18/20 08/18/20 History Patient History Medical History CAD (coronary artery disease) HLD (hyperlipidemia) Idiopathic polyneuropathy Seizure disorder Surgical History H/O toe surgery History of carpal tunnel release of both wrists Stented coronary artery Family History Mother Diabetes Father Coronary heart disease Diabetes Myocardial infarction Social History Smoking Status: Former smoker Tobacco Type: Cigarettes Hx Alcohol Use: Yes Alcohol type: beer and hard liquor Preferred Language: Bahraini Current Living Situation: Other Current Living Situation Comment: [facility] Other Information That Helps Us Care for You: No Feels Safe at Home: Yes Assistive Devices: Wheelchair Review of Systems Review of Systems: All systems reviewed & are unremarkable except as noted in HPI & below Physical Exam Constitutional: well developed and well nourished; no acute distress Sitting in wheelchair Neck: normal visual inspection Respiratory: normal respiratory effort and able to speak in complete sentences; no labored breathing and no audible wheezes Gastrointestinal (Abdomen): Percussion/Palpation: abdomen soft; abdomen nontender and no guarding Musculoskeletal: Head/Neck/Chest: normocephalic Skin: No visible rashes or lesions. Neurologic: awake Psychiatric: A+Ox3, euthymic affect Orientation: cooperative Genitourinary: Rashid catheter intact, draining tea-colored urine Results & Data ([facility]) Vital Signs (Past 12 Hours) Vital Signs Temp Pulse Resp BP Pulse Ox 08/20/20 07:30 36.6 C 89 18 144/72 H 91 PG Care Time/CCT Total # of Minutes Spent Total Time Spent with Patient: Total time spent is greater than 50% in coordination of care (as documented) at patient's floor/unit and/or counseling patient: Coding Level of Care Code 91502 Initial Inpt Care Lvl 2 Diagnoses UTI (urinary tract infection) N39.0 Acute urinary retention R33.8
[2020-08-20] MEDS: FLUoxetine HCL 20 MG CAP PO SCH (10:39)
[2020-08-20] MEDS: BACLOFEN 20 MG TAB PO SCH ×2 (10:39→20:21)
[2020-08-20] MEDS: GABAPENTIN 300 MG CAP PO SCH ×2 (10:39→20:23)
[2020-08-20] MEDS: ASPIRIN 81 MG CHEW PO SCH (10:40)
[2020-08-20] MEDS: POLYETHYLENE (MIRALAX) 17 GM PACK PO SCH ×2 (10:41→20:21)
[2020-08-20] MEDS: FLUTICASONE FUROATE 200MCG 14 PUFFS/INHALER INH SCH (10:41)
[2020-08-20] MEDS: ATORVASTATIN 40 MG TAB PO SCH (11:23)
--- NOTE | 2020-08-20 19:00 | Billing Data ---
Date of Service August 20, 2020 Coding Level of Care Code 35102 Subseq Hosp Care Lvl 3
[2020-08-20] MEDS: ACETAMINOPHEN 500 MG TAB PO PRN (19:34)
[2020-08-20] MEDS ORDERED: ONDANSETRON INJ 2 MG/ML 2 ML VIAL IV PRN (19:53)
[2020-08-20] MEDS: rOPINIRole HCL 1 MG TABLET PO SCH (20:22)
[2020-08-20] MEDS: TAMSULOSIN HCL 0.4 MG CAP PO SCH (20:23)
[2020-08-20] MEDS: ENOXAPARIN INJ 40 MG/0.4 ML SYR SQ SCH (21:00)
[2020-08-20] MEDS: cefTRIAXone SODIUM 2,000 MG in DEXTROSE 5% 50 ML IV SCH (21:00)
[2020-08-21] MEDS: ACETAMINOPHEN 500 MG TAB PO PRN ×2 (05:51→11:28)
[2020-08-21] MEDS: ASPIRIN 81 MG CHEW PO SCH (07:47)
[2020-08-21] MEDS: ATORVASTATIN 40 MG TAB PO SCH (07:48)
[2020-08-21] MEDS: GABAPENTIN 300 MG CAP PO SCH (07:48)
[2020-08-21] MEDS: FLUoxetine HCL 20 MG CAP PO SCH (07:49)
[2020-08-21] MEDS: POLYETHYLENE (MIRALAX) 17 GM PACK PO SCH ×2 (07:54→20:20)
[2020-08-21] MEDS: FLUTICASONE FUROATE 200MCG 14 PUFFS/INHALER INH SCH (07:55)
[2020-08-21] MEDS: BACLOFEN 20 MG TAB PO SCH ×2 (07:55→20:21)
[2020-08-21] MEDS ORDERED: AMOXICILLIN/CLAVULANATE 875 MG TAB PO ONE (09:10)
[2020-08-21] MEDS ORDERED: NURSING DECISION MEDICATION ONE (11:23)
[2020-08-21] MEDS ORDERED: COUGH DROP (SUGAR FREE) LOZ 24 LOZ/1 BOX BUCCAL ONE (11:25)
[2020-08-21] MEDS ORDERED: BACLOFEN 20 MG TAB PO ONE (11:40)
[2020-08-21] MEDS: MAGNESIUM SULFATE / D5W 1 GM/100 ML BAG IV SCH ×2 (12:51→14:09)
[2020-08-21 12:55] LABS: Ferritin 260.2 ng/ml (8-388)
[2020-08-21] MEDS: FERROUS GLUCONATE 324 MG TAB PO SCH (14:09)
[2020-08-21] MEDS: AMOXICILLIN/CLAVULANATE 875 MG TAB PO SCH (18:16)
--- NOTE | 2020-08-21 18:48 | Hospitalist Progress Note ---
Date of Service August 21, 2020 Assessment & Plan (1) RLS (restless legs syndrome): RLS/neuropathy - seems odd with involuntary movements - ?demyelination vs malingering seem high on ddx - will give benefit of doubt - has not had much w/u beyond EMG/NCV about a year ago - MRI Lspine, brain, may need to consider T/Cspine as well increase gabapentin follow consider B12 since levels lower end - but doubt that low end B12 playing a role in this (2) Idiopathic polyneuropathy: see above (3) UTI (urinary tract infection): related to BPH. finish out course of abx (4) BPH (benign prostatic hyperplasia): with significant LUTS leading to urinary retention and current infection. continue rashid drainage, outpt urology f/u (5) CAD (coronary artery disease): asymptomatic (6) DVT prophylaxis: lovenox Admission and Anticipated Discharge Date Admission Date: August 18, 2020 Subjective leg spasms R sided -- involuntary. paresethesia R worse than L bilateral. really painful at times, involuntary movements at times. does sometimes happen as outpt over the last year some as well. no other new sx notes gabapentin helped some Review of Systems Review of Systems: All systems reviewed & are unremarkable except as noted in HPI & below Physical Exam Physical Exam: gen aaox3 pleasant but appearing a bit uncomfortable at times and restless in the bed. heent nc at mmm breathing unlabored no accessory muscles good effort skin no rashes no pallor or icterus. subjectively diminished sensation R worse than L. large range movements R leg flexing at hip and knee predominantly. moderate muslce tone when this happens. no weakness/flacidity. tender at proximal muscle attachments. Results & Data Results & Data ([facility]) Vital Signs (Past 12 Hours) Vital Signs Temp Pulse Resp BP Pulse Ox 08/21/20 15:52 98.2 F 92 H 18 128/80 92 08/21/20 07:27 98.1 F 87 18 117/69 91 PG Care Time/CCT Total # of Minutes Spent Total Time Spent with Patient: Total time spent is greater than 50% in coordination of care (as documented) at patient's floor/unit and/or counseling patient: Coding Level of Care Code 38201 Subseq Hosp Care Lvl 3 Diagnoses RLS (restless legs syndrome) G25.81 Idiopathic polyneuropathy G60.9 UTI (urinary tract infection) N39.0 BPH (benign prostatic hyperplasia) N40.0 CAD (coronary artery disease) I25.10 DVT prophylaxis Z29.9
[2020-08-21] MEDS: GABAPENTIN 600 MG TAB PO SCH (20:19)
[2020-08-21] MEDS: TAMSULOSIN HCL 0.4 MG CAP PO SCH (20:20)
[2020-08-21] MEDS: rOPINIRole HCL 1 MG TABLET PO SCH (20:21)
[2020-08-21] MEDS: ENOXAPARIN INJ 40 MG/0.4 ML SYR SQ SCH (21:33)
[2020-08-21] MEDS ORDERED: GABAPENTIN 300 MG CAP PO STA (23:10)
[2020-08-22] MEDS: FLUTICASONE FUROATE 200MCG 14 PUFFS/INHALER INH SCH (07:55)
[2020-08-22] MEDS: AMOXICILLIN/CLAVULANATE 875 MG TAB PO SCH ×2 (10:06→18:06)
[2020-08-22] MEDS: POLYETHYLENE (MIRALAX) 17 GM PACK PO SCH ×2 (10:06→19:41)
[2020-08-22] MEDS: ATORVASTATIN 40 MG TAB PO SCH (10:07)
[2020-08-22] MEDS: BACLOFEN 20 MG TAB PO SCH ×2 (10:07→19:42)
[2020-08-22] MEDS: ASPIRIN 81 MG CHEW PO SCH (10:07)
[2020-08-22] MEDS: FERROUS GLUCONATE 324 MG TAB PO SCH (10:08)
[2020-08-22] MEDS: FLUoxetine HCL 20 MG CAP PO SCH (10:08)
[2020-08-22] MEDS: GABAPENTIN 600 MG TAB PO SCH ×2 (10:08→19:42)
--- NOTE | 2020-08-22 12:38 | XRay Report ---
ORBIT RADIOGRAPHS 3 VIEWS HISTORY: pre-MRI screening. COMPARISON: Head CT August 18, 2020. FINDINGS: There are no radiopaque foreign bodies identified within the orbits. IMPRESSION: No radiopaque foreign bodies identified within the orbits. ACT 112: Negative or not required by law. Electronically signed by: Raheel Chaidez M.D. 08/22/2020 12:37 PM
[2020-08-22] MEDS ORDERED: LORazepam 2 MG/4 ML VIAL IV STA (17:42)
[2020-08-22] MEDS: ENOXAPARIN INJ 40 MG/0.4 ML SYR SQ SCH (19:42)
[2020-08-22] MEDS: TAMSULOSIN HCL 0.4 MG CAP PO SCH (19:42)
[2020-08-22] MEDS: rOPINIRole HCL 1 MG TABLET PO SCH (19:42)
--- NOTE | 2020-08-22 20:10 | Hospitalist Progress Note ---
Date of Service August 22, 2020 Assessment & Plan (1) RLS (restless legs syndrome): RLS/neuropathy - seems odd with involuntary movements -given that his contracture and muscle stiffness persist even whenever he is sedated on Ativan, it really does seem like something neuromuscular is at play. He was unable to get MRI L-spine and brain today, but hopefully with sedation with Ativan will be able to do this. If not, consider neurology consult versus MRI with anesthesia, versus both. Probably he will be able to undergo MRI with approximately 2 mg Ativan for sedation increased gabapentin follow consider B12 replacement since levels lower end - but doubt that low end B12 playing a role in this (2) Idiopathic polyneuropathy: see above (3) UTI (urinary tract infection): related to BPH. finish out course of abx, doing well in this regard. Possibly physiologic/inflammatory stress from UTI was what led to the flareup of his neurologic condition. (4) BPH (benign prostatic hyperplasia): with significant LUTS leading to urinary retention and current infection. continue rashid drainage until seeing urology after discharge, outpt urology f/u to be arranged (5) CAD (coronary artery disease): asymptomatic (6) DVT prophylaxis: lovenox Admission and Anticipated Discharge Date Admission Date: August 18, 2020 Subjective uanble to tolerate MRI leg spasms made him unable to lay still. Has back pain too. Later revisited after Ativan, and he is much more sedated not having pain, although interestingly his legs are still kind of contracted at the hips. Review of Systems Review of Systems: All systems reviewed & are unremarkable except as noted in HPI & below Physical Exam Physical Exam: In general earlier he is awake and alert pleasant but quite uncomfortable with his leg particularly the right and spasm. He had tightness of his proximal quad and anterior hip flexor muscles. Later on revisit he is quite sedated with the Ativan, he does wake up when stimulated but generally sp eaks confused and a little bit of nonsense, interestingly he still has fairly firm degree of contraction in his hip flexorsit is not nearly as involuntarily spastic or to a degree convulsive as earlier, but still there. Results & Data Results & Data ([facility]) Vital Signs (Past 12 Hours) Vital Signs Temp Pulse Resp BP Pulse Ox 08/22/20 16:00 98.6 F 92 H 18 149/83 H 90 PG Care Time/CCT Total # of Minutes Spent Total Time Spent with Patient: Total time spent is greater than 50% in coordination of care (as documented) at patient's floor/unit and/or counseling patient: Coding Level of Care Code 82492 Subseq Hosp Care Lvl 3 Diagnoses RLS (restless legs syndrome) G25.81 Idiopathic polyneuropathy G60.9 UTI (urinary tract infection) N39.0 BPH (benign prostatic hyperplasia) N40.0 CAD (coronary artery disease) I25.10 DVT prophylaxis Z29.9
[2020-08-23] MEDS: LORazepam 1 MG/2 ML VIAL IV PRN (00:21)
[2020-08-23] MEDS ORDERED: GADOBUTROL 65ML VIAL IV ONE (01:22)
--- NOTE | 2020-08-23 07:16 | Magnetic Resonance Report ---
MRI OF THE BRAIN WITHOUT AND WITH IV CONTRAST CLINICAL HISTORY: paresthesia and leg spasms, ?demyelination COMPARISON STUDY: Head CT August 18, 2020. TECHNIQUE: Utilizing a 1.5 Vicki magnet and dedicated coil, multiplanar, multiecho imaging of the br ain was performed pre and postcontrast administration. IV administration of 12 mL [address] contra st was uneventful. FINDINGS: This exam is compromised by motion artifact. There are no foci of restricted diffusion to s uggest acute infarct. No acute intracranial hemorrhage, midline shift or mass effect is present. Vent ricular system is normal. Basilar cisterns are patent. There are no extra-axial collections. Flow-voi ds for the major intracranial vessels are present. No intracranial mass or pathologic enhancement is identified. There is minimal periventricular T2 hyperintensity. There may be several small white benjamín er T2 hyperintense foci. Calvarial signal is grossly normal. IMPRESSION: 1. Exam compromised by motion artifact. No acute intracranial findings identified. 2. Minimal white matter T2 hyperintense foci. No evidence for demyelinating disease by MRI. 3. No intracranial mass or pathologic enhancement. ACT 112: Negative or not required by law. Electronically signed by: Raheel Chaidez M.D. 08/23/2020 7:14 AM
--- NOTE | 2020-08-23 09:11 | Magnetic Resonance Report ---
LUMBAR SPINE MRI WITH AND WITHOUT CONTRAST HISTORY: paresthesiae, leg spasms, ?demyelination TECHNIQUE: Multiplanar multisequence MRI of the lumbar spine was performed both before and after the intravenous administration of contrast. COMPARISON: Lumbar spine CT 08/18/2020. FINDINGS: For the purpose of the report the L5-S1 disc space will be located on axial image 23 of 25. Suboptimal evaluation due to the mild motion artifact. No fracture or subluxation. Mild disc space na rrowing at T11-T12. The conus terminates at the L1-L2 disc space level. Paravertebral soft tissues ar e unremarkable. Mild disc space narrowing at L2-L3 and L3-L4. There is severe disc space narrowing at L4-5 and L5-S1 with endplate osteophytes. Mild facet degenerative changes within the lower lumbar sp ine. No definite abnormal enhancement within the lumbar spine. The cauda equina appears intact. Endpl ate edema at L4-5 is likely due to long-standing degenerative change. L1-L2: No significant central canal or neural foraminal narrowing. L2-L3: There is a small broad-based posterior disc bulge with a right paracentral/foraminal disc extr usion demonstrating inferior subligamentous migration. This measures approximately 11 x 7 x 6 mm and compresses the transiting right L3 nerve root. There is mild central canal narrowing and mild right-s ided neural foraminal narrowing. L3-L4: Broad-based posterior disc bulge with ligamentum and facet hypertrophy resulting in mild centr al canal and mild bilateral neural foraminal narrowing. L4-L5: Broad-based posterior disc bulge asymmetric to the right with ligamentum and facet hypertrophy . This results in moderate central canal and moderate bilateral neural foraminal narrowing. L5-S1: Small broad-based posterior disc osteophyte complex without significant central canal narrowin g. There is moderate bilateral neural foraminal narrowing. IMPRESSION: 1. A right-sided paracentral/foraminal disc extrusion at L2-L3 demonstrating inferior subligamentous migration. This compresses the transiting right L3 nerve root. 2. Additional degenerative changes as described above most pronounced at the L4-5 level which demonst rates moderate central canal and moderate bilateral neural foraminal narrowing. 3. No fracture or subluxation. ACT 112: Negative or not required by law. Electronically signed by: Javier Tam M.D. 08/23/2020 9:09 AM
[2020-08-23] MEDS: POLYETHYLENE (MIRALAX) 17 GM PACK PO SCH ×2 (09:25→21:44)
[2020-08-23] MEDS: ASPIRIN 81 MG CHEW PO SCH (09:26)
[2020-08-23] MEDS: ATORVASTATIN 40 MG TAB PO SCH (09:26)
[2020-08-23] MEDS: FLUoxetine HCL 20 MG CAP PO SCH (09:26)
[2020-08-23] MEDS: FERROUS GLUCONATE 324 MG TAB PO SCH (09:26)
[2020-08-23] MEDS: BACLOFEN 20 MG TAB PO SCH ×2 (09:26→21:45)
[2020-08-23] MEDS: AMOXICILLIN/CLAVULANATE 875 MG TAB PO SCH ×2 (09:26→17:25)
[2020-08-23] MEDS: GABAPENTIN 600 MG TAB PO SCH ×2 (09:27→21:45)
[2020-08-23] MEDS: FLUTICASONE FUROATE 200MCG 14 PUFFS/INHALER INH SCH (09:27)
[2020-08-23 11:08] LABS: Basophils # (auto) 0.03 K/uL (0-0.2); Basophils % (auto) 0.4 %; Eosinophils # (auto) 0.07 K/uL (0-0.5); Eosinophils % (auto) 0.8 %; Hematocrit (blood only) 34.9 % (42-52); Hemoglobin 11.7 g/dL (14.0-18.0); Immature Granulocytes # (auto) 0.02 K/uL (0.00-0.02); Immature Granulocytes % (auto) 0.2 %; Lymphocytes # (auto) 1.03 K/uL (1.2-3.4); Lymphocytes % (auto) 12.2 %; Mean Corpuscular Hemoglobin 32.6 pg (25-34); Mean Corpuscular Hgb Conc 33.5 g/dL (32-36); Mean Corpuscular Volume 97.2 fL (80-100); Mean Platelet Volume 9.2 fL (7.4-10.4); Monocytes # (auto) 0.97 K/uL (0.11-0.59); Monocytes % (auto) 11.5 %; Neutrophils # (auto) 6.29 K/uL (1.4-6.5); Neutrophils % (auto) 74.9 %; Platelet Count 206 K/uL (130-400); RDW Coefficient of Variation 12.8 % (11.5-14.5); RDW Standard Deviation 45.2 fL (36.4-46.3); Red Blood Count 3.59 M/uL (4.7-6.1); White Blood Count 8.41 K/uL (4.8-10.8)
[2020-08-23 11:25] LABS: Albumin Level 3.3 gm/dl (3.4-5.0); BUN Creatinine Ratio 30.4 (10-20); Calcium 9.1 mg/dl (8.5-10.1); Creatinine Clr Calc Pharmacy 142.1 ml/min; Est GFR (African American) 113.9 ml/min; Est GFR (Non-African American) 98.2 ml/min; Magnesium 2.6 mg/dl (1.8-2.4)
[2020-08-23 11:28] LABS: Albumin Globulin Ratio 0.8 (0.9-2); Bilirubin,Total 0.6 mg/dl (0.2-1); Globulin 4.1 gm/dl (2.5-4.0); Total Protein 7.4 gm/dl (6.4-8.2)
[2020-08-23] MEDS: CYANOCOBALAMIN 1000 MCG/ML VIAL IM SCH (13:28)
[2020-08-23] MEDS: rOPINIRole HCL 1 MG TABLET PO SCH (21:44)
[2020-08-23] MEDS: TAMSULOSIN HCL 0.4 MG CAP PO SCH (21:44)
[2020-08-23] MEDS: ENOXAPARIN INJ 40 MG/0.4 ML SYR SQ SCH (21:45)
--- NOTE | 2020-08-23 22:50 | Hospitalist Progress Note ---
Date of Service August 23, 2020 Assessment & Plan (1) Falls: Presents with numerous falls and a history of idiopathic polyneuropathy based on EMG of the left upper and left lower extremity in 07/2019 With paresthesias in all 4 extremities, hyperreflexia, chronic neck and lower back pain CT cervical spine with significant facet arthritis, lumbar MRI with spinal stenosis and HNP at L2-L3 causing severe impingement on L3 nerve root Could account for his symptoms Also likely has cervical myelopathy MRI brain is normal PT/OT consultations needed Consult neurology and orthopedic spine surgery as below (2) Idiopathic polyneuropathy: see above Restarted on gabapentin Consulting neurology (3) RLS (restless legs syndrome): RLS/neuropathy -presented with involuntary movements, contractures and muscle stiffness of the lower extremities that is fairly acute increased gabapentin and is improving With spinal stenosis as above likely contributing Consulting neurology Given muscle stiffness, will check a CK in the morning (4) UTI (urinary tract infection): related to BPH. finish out course of abx with Augmentin x14-day course, doing well in this regard. Possibly physiologic/inflammatory stress from UTI was what led to the flareup of his neurologic condition. Rashid catheter remains in place and will follow up with urology as an outpatient (5) BPH (benign prostatic hyperplasia): with significant LUTS leading to urinary retention and current infection. With significant prostamegaly on CT abdomen/pelvis Continue rashid drainage until seeing urology after discharge, outpt urology f/u to be arranged (6) Lumbar stenosis: As above Consult orthopedic spine surgeon Continue baclofen (7) Cervical stenosis of spine: As above Consult orthopedic spine surgeon (8) Hyperreflexia: With 3+ reflexes throughout and 3 beats of clonus in bilateral ankles With contractures and stiffness throughout lower extremities Polyneuropathy Likely with cervical spine myelopathy (9) Chronic diarrhea: Typically takes Imodium and probiotics We will restart these today Discontinue MiraLAX twice daily as he reports having 9 bowel movements so far today (10) COPD (chronic obstructive pulmonary disease): No acute issues Continue leave albuterol as needed and fluticasone inhaled (11) HLD (hyperlipidemia): Continue statin (12) B12 deficiency: B12 level is borderline low in the 350 range Start B12 1000 mcg IM daily x3 doses (13) CAD (coronary artery disease): asymptomatic Continue home atorvastatin, aspirin He has a history of stents (14) DVT prophylaxis: lovenox SQ Disposition continued stay, await neurology and orthopedic spine surgery consultations Admission and Anticipated Discharge Date Admission Date: August 18, 2020 Subjective Patient reports the spasms in his legs have improved somewhat today but he still has great difficulty straightening his legs out. He reports pain in the right hip down the right thigh. This has all been going on for many months, but the cramping up of the legs was more recent in the last few days prior to admission. He reports tingling in all 4 extremities. He has chronic neck pain and lower back pain. He also reports he has a long history of diarrhea which was cured with a particular medication but he has not been receiving that medication since being here and therefore is having multiple loose stools again. He does report having more energy since receiving the B12 injection this morning. Review of Systems Review of Systems: All systems reviewed & are unremarkable except as noted in HPI & below Physical Exam Constitutional: WD/WN, vitals as above + obese Eyes: + anicteric sclerae; no nystagmus Neck: trachea midline, no thyromegaly Respiratory: normal respiratory effort, lungs clear to auscultation Cardiovascular: RRR, no murmur, no edema Chest (Breasts): Chest: normal inspection of chest Gastrointestinal (Abdomen): normal bowel sounds, soft, nontender, no hepatosplenomegaly Musculoskeletal: Extremities: extremities normal to inspection; no cyanosis and no clubbing Skin: no rashes, warm and dry Neurologic: moves all extremities and awake; + abnormal deep tendon reflexes (With 3+ reflexes upper and lower extremities and 3 beat clonus ankles) and no focal motor deficits (Can move all extremities but requires assistance and st raighten out flexion) Motor/Sensory: no tremor Psychiatric: A+Ox3, euthymic affect Genitourinary: Rashid catheter in place Lymphatic: no lymphedema Results & Data Results & Data ([facility]) Vital Signs (Past 12 Hours) Vital Signs Temp Pulse Resp BP Pulse Ox 08/23/20 22:00 36.8 C 95 H 16 133/76 91 08/23/20 16:01 36.7 C 91 H 16 136/83 90 Laboratory Results 08/23/20 08/23/20 Range/Units 10:56 10:56 WBC 8.41 (4.8-10.8) K/uL RBC 3.59 L (4.7-6.1) M/uL Hgb 11.7 L (14.0-18.0) g/dL Hct 34.9 L (42-52) % MCV 97.2 (80-100) fL MCH 32.6 (25-34) pg MCHC 33.5 (32-36) g/dL RDW Std Deviation 45.2 (36.4-46.3) fL RDW Coeff of Dinesh 12.8 (11.5-14.5) % Plt Count 206 (130-400) K/uL MPV 9.2 (7.4-10.4) fL Immature Gran % (Auto) 0.2 % Neut % (Auto) 74.9 % Lymph % (Auto) 12.2 % [place] % (Auto) 11.5 % Eos % (Auto) 0.8 % Baso % (Auto) 0.4 % Neut # (Auto) 6.29 (1.4-6.5) K/uL Lymph # (Auto) 1.03 L (1.2-3.4) K/uL [place] # (Auto) 0.97 H (0.11-0.59) K/uL Eos # (Auto) 0.07 (0-0.5) K/uL Baso # (Auto) 0.03 (0-0.2) K/uL Immature Gran # (Auto) 0.02 (0.00-0.02) K/uL Sodium 137 (136-145) mmol/L Potassium 4.0 (3.5-5.1) mmol/L Chloride 105 (98-107) mmol/L Carbon Dioxide 25 (21-32) mmol/L Anion Gap 7.0 (3-11) BUN 21 H (7-18) mg/dl Creatinine 0.69 (0.6-1.4) mg/dl Est Cr Clr Drug Dosing 142.1 ml/min Est GFR ( Amer) 113.9 ml/min Est GFR (Non-Af Amer) 98.2 ml/min BUN/Creatinine Ratio 30.4 H (10-20) Glucose 106 H (70-99) mg/dl Calcium 9.1 (8.5-10.1) mg/dl Magnesium 2.6 H (1.8-2.4) mg/dl Total Bilirubin 0.6 (0.2-1) mg/dl AST 41 H (15-37) U/L ALT 28 (12-78) U/L Alkaline Phosphatase 53 (45-117) U/L Total Protein 7.4 (6.4-8.2) gm/dl Albumin 3.3 L (3.4-5.0) gm/dl Globulin 4.1 H (2.5-4.0) gm/dl Albumin/Globulin Ratio 0.8 L (0.9-2) PG Care Time/CCT Total # of Minutes Spent Total Time Spent with Patient: Total time spent is greater than 50% in coordination of care (as documented) at patient's floor/unit and/or counseling patient: Coding Level of Care Code 89777 Subseq Hosp Care Lvl 3 Diagnoses Falls W19.XXXA Idiopathic polyneuropathy G60.9 RLS (restless legs syndrome) G25.81 UTI (urinary tract infection) N39.0 BPH (benign prostatic hyperplasia) N40.0 Lumbar stenosis M48.061 Cervical stenosis of spine M48.02 Hyperreflexia R29.2 Chronic diarrhea K52.9 COPD (chronic obstructive pulmonary disease) J44.9 HLD (hyperlipidemia) E78.5 B12 deficiency E53.8 CAD (coronary artery disease) I25.10 DVT prophylaxis Z29.9
[2020-08-23] MEDS: ACETAMINOPHEN 500 MG TAB PO PRN (23:01)
[2020-08-24] MEDS ORDERED: LOPERAMIDE HCL 2 MG CAP PO PRN (00:52)
[2020-08-24] MEDS: ATORVASTATIN 40 MG TAB PO SCH (07:52)
[2020-08-24] MEDS: FLUoxetine HCL 20 MG CAP PO SCH (07:52)
[2020-08-24] MEDS: AMOXICILLIN/CLAVULANATE 875 MG TAB PO SCH ×2 (07:52→16:23)
[2020-08-24] MEDS: CYANOCOBALAMIN 1000 MCG/ML VIAL IM SCH (07:53)
[2020-08-24] MEDS: ASPIRIN 81 MG CHEW PO SCH (07:53)
[2020-08-24] MEDS: GABAPENTIN 600 MG TAB PO SCH ×2 (07:53→19:59)
[2020-08-24] MEDS: FLUTICASONE FUROATE 200MCG 14 PUFFS/INHALER INH SCH (07:53)
[2020-08-24] MEDS: FERROUS GLUCONATE 324 MG TAB PO SCH ×2 (07:53→19:53)
[2020-08-24] MEDS: ADVANCED PROBIOTIC 1250 MG CAPSULE PO SCH ×3 (07:53→19:59)
[2020-08-24] MEDS: BACLOFEN 20 MG TAB PO SCH ×2 (07:53→19:59)
[2020-08-24 08:29] LABS: Albumin Level 3.4 gm/dl (3.4-5.0); BUN Creatinine Ratio 37.7 (10-20); Calcium 9.2 mg/dl (8.5-10.1); Creatinine Clr Calc Pharmacy 142.1 ml/min; Est GFR (African American) 113.9 ml/min; Est GFR (Non-African American) 98.2 ml/min; Potassium 3.8 mmol/L (3.5-5.1)
[2020-08-24 08:42] LABS: Albumin Globulin Ratio 0.9 (0.9-2); Bilirubin,Total 0.7 mg/dl (0.2-1); Total Protein 7.4 gm/dl (6.4-8.2)
[2020-08-24] MEDS ORDERED: SODIUM CHLORIDE 0.9% 1000ML 1,000 ML IV SCH (10:00)
--- NOTE | 2020-08-24 10:16 | Neurology Consultation ---
Date of Consultation August 24, 2020 Assessment & Plan (1) Idiopathic polyneuropathy: (2) Hyperreflexia: (3) Cervical stenosis of spine: (4) Lumbar stenosis: Progressive spastic weakness of both lower extremities with hyperreflexia and bilateral upgoing toes with associated sensory loss to all 4 limbs, notably affecting proprioception. Clinically, patient appears to have a chronic, progressive myeloneuropathy. I would like him to have an MRI of the cervical and thoracic spine completed as well. He should also have an up-to-date outpatient EMG of all 4 limbs. Would also recommend checking a methylmalonic acid level, serum copper, and ceruloplasmin. (Copper deficiency may sometimes present with a myelopathy that resembles B12 deficiency.) Would also check an RPR. His clinical presentation and examination findings are not suggestive of either acute or chronic inflammatory demyelinating polyneuropathy (does not look like GBS or CIDP). A hereditary spastic paraparesis is also possible although this group of disorders would not typically include significant polyneuropathy. Furthermore, no clear family history of HSP. Patient's brain MRI not suggestive of multiple sclerosis or demyelinating disease. Furthermore, no evidence of NPH or focal cerebellar atrophy. Again, would recommend MRI of the cervical and thoracic spine without contrast. Outpatient EMG of all 4 limbs. Methylmalonic acid level, copper level, ceruloplasmin, and RPR. Patient may continue with ropinirole to address restless leg syndrome. He does appear to have low serum iron as well, would consider oral supplementation. History of Present Illness Reason for Consultation: Peripheral neuropathy, falls Requesting Physician: Zita Keane MD Attending Physician: Zita Keane MD History of Present Illness The patient is a 65-year-old male prisoner who presented to the emergency department on August 18, 2020 for increasing number of falls, legs giving out, associated numbness and tingling. He reports that he began experiencing diffuse paresthesias and numbness, hands and feet beginning 15 or 16 months ago. He had an EMG with Dr. Hannah July 18, 2019 for further evaluation of the symptoms that also included neck and low back pain and associated leg weakness. The EMG revealed a significant polyneuropathy involving sensory motor fibers of mixed pathology. There was no evidence for myopathy or radiculopathy in the left arm or leg at that time. The reason for this patient's polyneuropathy is not entirely clear although he does carry a diagnosis of B12 deficiency. Recent B12 level is normal, however. No known history of diabetes mellitus. As above, in addition to diffuse numbness and paresthesias of the limbs, he also complains of chronic low back pain which tends to be worse on the right. He reports that his legs give out with prolonged standing. He has been wheelchair-bound for about the past 10 months. In addition to numbness and weakness, he also complains of difficulty urinating and associated incontinence. A lumbar spine MRI completed yesterday revealed a right sided paracentral foraminal disc extrusion at L2-3 with compression of the right L3 nerve root as well as additional degenerative changes most pronounced at L4-5 with associated moderate central canal and moderate bilateral neural foraminal narrowing. A brain MRI was generally unremarkable, revealing only mild small vessel ischemic disease. No findings suggestive of normal pressure hydrocephalus. No cerebellar atrophy. A CT of the cervical spine revealed moderate multilevel intervertebral disc space narrowing with severe facet arthrosis and degenerative bony fusion of the left facets at C4-5. There is degenerative 3 mm anterolisthesis of C3 on 4 and C4 on 5. I reviewed the images as well as the radiologist's interpretation of these tests and agree. Allergies Allergy/AdvReac Type Severity Reaction Status Date / Time gemfibrozil [From Lopid] Allergy Unknown Unverified 08/18/20 15:16 Home Medications Medication Instructions Recorded Confirmed Type acetaminophen 1,000 mg PO TID PRN 08/18/20 08/18/20 History acidophilus-pectin, citrus 1 cap PO TID 08/18/20 08/18/20 History [Acidophilus Probiotic] aspirin 81 mg PO DAILY 08/18/20 08/18/20 History atorvastatin 40 mg PO DAILY 08/18/20 08/18/20 History baclofen 20 mg PO BID 08/18/20 08/18/20 History ciclesonide [Alvesco] 1 puff INHALATION BID 08/18/20 08/18/20 History diclofenac sodium 50 mg PO TID 08/18/20 08/18/20 History fluoxetine 80 mg PO DAILY 08/18/20 08/18/20 History levalbuterol tartrate [Xopenex HFA] 2 inh INHALATION Q6H PRN 08/18/20 08/18/20 History loperamide [Imodium A-D] 2 mg PO QID PRN 08/18/20 08/18/20 History oxcarbazepine [Trileptal] 150 mg PO BID 08/18/20 08/18/20 History ropinirole 1 mg PO HS 08/18/20 08/18/20 History Patient History Medical History B12 deficiency CAD (coronary artery disease) Cervical stenosis of spine Chronic diarrhea HLD (hyperlipidemia) Idiopathic polyneuropathy Lumbar stenosis Seizure disorder Surgical History H/O toe surgery History of carpal tunnel release of both wrists Stented coronary artery Family History Mother Diabetes Father Coronary heart disease Diabetes Myocardial infarction Social History Smoking Status: Former smoker Tobacco Type: Cigarettes Hx Alcohol Use: Yes Alcohol type: beer and hard liquor Preferred Language: B[place]ud[place] Current Living Situation: Other Current Living Situation Comment: [facility] Other Information That Helps Us Care for You: No Feels Safe at Home: Yes Assistive Devices: None Review of Systems Constitutional: no fever and no chills Eyes: no blind spots and no diplopia Ear, Nose, Mouth, Throat: no hearing loss Respiratory: no cough and no dyspnea Cardiovascular: no chest pain and no palpitations Gastrointestinal: no nausea and no vomiting Genitourinary: + as per Subjective / HPI, + dysuria, + difficulty urinating and + urinary incontinence Musculoskeletal: + back pain and + neck pain; no myalgia Integumentary: no rash and no lesions Neurologic: as per Subjective / HPI, + gait abnormality, + localized weakness, + loss of sensation and + paresthesia; no tremor(s), no headache(s), no confusion and no memory loss Psychiatric: no depression and no anxiety Hematologic / Lymphatic: no easy bleeding and no easy bruising Exam (Neuro) Constitutional: well developed and well nourished; no acute distress Eyes: normal visual rock by confrontation, PERRL, normal accommodation and EOM intact bilaterally; no fundoscopic abnormality, no nystagmus and no papilledema Cardiovascular: Vessels: normal carotid upstroke; no carotid bruit Neurologic: Oriented to:: Person, Place and Time Memory: Short Term Intact and Remote Intact Attention: Span Intact and Concentration Intact Language: Naming Objects and Repeating Phrases Speech Fluency: negative Dysarthria Speech Aphasia: negative Aphasia Fund of Knowledge: Current Events, Past History and Vocabulary Cranial Nerves: Normal II (Visual rock full to confrontation, visual acuity normal), III, IV, (Pupils equal round reactive to light and accommodation, eye movements normal), V (Facial sensation intact), VII (There is no facial droop or weakness), VIII (Hearing intact), IX, X (Palate elevates to midline), XI (Shoulder shrug intact) and XII (Tongue protrudes to midline) Motor Strength: Normal Upper Extremities; negative Normal Lower Extremities and Pronator Drift Motor Tone: negative Normal Lower Extremities and Normal Upper Extremities Hypertonicity: Legs Muscle Bulk/Involuntary Movements: No Involuntary Movements; negative Muscle Atrophy Sensation: negative Light Touch Intact, Pain/Temperature Intact, Vibration Intact and Proprioception Intact Coordination: Normal; negative Limited Balance, Dysdiadochokinesia, Finger-Nose Abnormal and Heel-Thomas Abnormal Deep Tendon Reflexes: Rt Triceps: 2+, Lt Triceps: 2+, Rt Biceps: 2+, Lt Biceps: 2+, Rt Brachioradialis: 2+, Lt Brachioradialis: 2+, Rt Patellar: 3+, Lt Patellar: 3+, Rt Ankle: 3+ and Lt Ankle: 3+ Special Tests: Babinski Present (bilateral) Details: Moderate mink rancher weakness noted bilaterally. No intrinsic hand muscle atrophy or wrist drop. Proximal upper extremity strength seems normal. Moderate to severe bilateral lower extremity weakness noted. Unable to raise either leg out of the bed against gravity. However, hip flexor strength seems intact bilaterally. Quadriceps strength 0 out of 5 bilaterally? Exhibits some hamstring spasticity bilaterally. No foot drop. No atrophy or fasciculations observed. Results & Data ([facility]) Vital Signs (Past 12 Hours) Vital Signs Temp Pulse Resp BP Pulse Ox 08/24/20 07:58 36.6 C 89 16 134/85 93 Laboratory Results WBC 8.41, hemoglobin 11.7, hematocrit 34.9, platelet count 206, sodium 138, potassium 3.8, BUN 26, creatinine 0.69, glucose 99, calcium 9.2, magnesium 2.6, iron 25, TIBC 254, transferrin 196, AST 50, ALT 31, total CK 1083, vitamin B12 354, folate greater than 20, TSH 0.554 Diagnostic Findings MRI of the lumbar spine and brain as well as CT of the cervical spine are as described in the history of present illness. EMG completed last July is as described in the history of present illness. Coding Level of Care Code 71514 Inpt Consult Level 5 Diagnoses Idiopathic polyneuropathy G60.9 Hyperreflexia R29.2 Cervical stenosis of spine M48.02 Lumbar stenosis M48.061
--- NOTE | 2020-08-24 11:56 | Orthopedic Consultation ---
Date of Consultation August 24, 2020 Assessment & Plan (1) Lumbar stenosis: MRI lumbar spine is available for review. It does demonstrate evidence of significant right-sided discrimination L2-L3 with caudal migration and subsequent encroachment the traversing L3 nerve root on the right. This would be consistent with some of his pain patterns. He does have known advanced peripheral neuropathy as well. This would also account for some of his complaints. I would like to await review of his cervical and thoracic MRI before making any formal recommendations. Present on Admission?: Yes History of Present Illness Reason for Consultation: Back with bilateral leg pain and weakness Attending Physician: Zita Keane MD History of Present Illness This is a 65-year-old male that states that over 10 months he has had significant bilateral lower extremity numbness and tingling and severe pain into his right groin and right thigh. He has limited his ability to ambulate. He has had several falls. Allergies Allergy/AdvReac Type Severity Reaction Status Date / Time gemfibrozil [From Lopid] Allergy Unknown Unverified 08/18/20 15:16 Home Medications Medication Instructions Recorded Confirmed Type acetaminophen 1,000 mg PO TID PRN 08/18/20 08/18/20 History acidophilus-pectin, citrus 1 cap PO TID 08/18/20 08/18/20 History [Acidophilus Probiotic] aspirin 81 mg PO DAILY 08/18/20 08/18/20 History atorvastatin 40 mg PO DAILY 08/18/20 08/18/20 History baclofen 20 mg PO BID 08/18/20 08/18/20 History ciclesonide [Alvesco] 1 puff INHALATION BID 08/18/20 08/18/20 History diclofenac sodium 50 mg PO TID 08/18/20 08/18/20 History fluoxetine 80 mg PO DAILY 08/18/20 08/18/20 History levalbuterol tartrate [Xopenex HFA] 2 inh INHALATION Q6H PRN 08/18/20 08/18/20 History loperamide [Imodium A-D] 2 mg PO QID PRN 08/18/20 08/18/20 History oxcarbazepine [Trileptal] 150 mg PO BID 08/18/20 08/18/20 History ropinirole 1 mg PO HS 08/18/20 08/18/20 History Patient History Medical History B12 deficiency CAD (coronary artery disease) Cervical stenosis of spine Chronic diarrhea HLD (hyperlipidemia) Idiopathic polyneuropathy Lumbar stenosis Seizure disorder Surgical History H/O toe surgery History of carpal tunnel release of both wrists Stented coronary artery Family History Mother Diabetes Father Coronary heart disease Diabetes Myocardial infarction Social History Smoking Status: Former smoker Tobacco Type: Cigarettes Hx Alcohol Use: Yes Alcohol type: beer and hard liquor Preferred Language: Japanese Current Living Situation: Other Current Living Situation Comment: [facility] Other Information That Helps Us Care for You: No Feels Safe at Home: Yes Assistive Devices: None Physical Exam Physical Exam: On exam is in bed. He is restrained. He is overall cooperative with exam. He demonstrates remarkably positive logroll on the right. He has sensation to cold and light touch to the left lower extremities. Is reasonable plantar flexion dorsiflexion quadriceps to the best of my ability to test. Results & Data ([facility]) Vital Signs (Past 12 Hours) Vital Signs Temp Pulse Resp BP Pulse Ox 08/24/20 07:58 36.6 C 89 16 134/85 93
[2020-08-24] MEDS: ACETAMINOPHEN 500 MG TAB PO PRN (17:46)
--- NOTE | 2020-08-24 18:49 | Hospitalist Progress Note ---
Date of Service August 24, 2020 Assessment & Plan (1) Falls: Presents with numerous falls and a history of idiopathic polyneuropathy based on EMG of the left upper and left lower extremity in 07/2019 With paresthesias in all 4 extremities, hyperreflexia, chronic neck and lower back pain CT cervical spine with significant facet arthritis, lumbar MRI with spinal stenosis and HNP at L2-L3 causing severe impingement on L3 nerve root Could account for his symptoms Also likely has cervical myeloneuropathy MRI brain is normal PT/OT consultations appreciated Consult neurology and orthopedic spine surgery as below (2) Idiopathic polyneuropathy: see above Restarted on gabapentin Consulting neurology-recommends B12, methylmalonic acid, copper level, ceruloplasmin, and RPR; also needs EMG all four extremities as outpt and MRI T and C-spine (3) RLS (restless legs syndrome): RLS/neuropathy -presented with involuntary movements, contractures and muscle stiffness of the lower extremities that is fairly acute increased gabapentin and is improving continur Requip With spinal stenosis as above likely contributing Consulting neurology-appreciated Given muscle stiffness, checked CK and mildly elevated at 1000-mild rhabdomyolysis-gave IVFs NS x 1 L With Fe deficiency-replace iron orally (4) UTI (urinary tract infection): related to BPH. finish out course of abx with Augmentin x14-day course, doing well in this regard. Possibly physiologic/inflammatory stress from UTI was what led to the flareup of his neurologic condition. Rashid catheter remains in place and will follow up with urology as an outpatient (5) BPH (benign prostatic hyperplasia): with significant LUTS leading to urinary retention and current infection. With significant prostamegaly on CT abdomen/pelvis Continue rashid drainage until seeing urology after discharge, outpt urology f/u to be arranged (6) Lumbar stenosis: As above Consult orthopedic spine [id number] to review C and T spine MRIs and then decide about surgery Continue baclofen add IV morphine prn pain ativan prn spasm of legs for MRI (7) Cervical stenosis of spine: As above Consult orthopedic spine surgeon getting C-spine MRI (8) Hyperreflexia: With 3+ reflexes throughout and 3 beats of clonus in bilateral ankles With contractures and stiffness throughout lower extremities Polyneuropathy Likely with cervical spine myelopathy check C and T spine MRI Appreciate Neuro consult: with "progressive spastic weakness of both lower extremities with hyperreflexia and bilateral upgoing toes with associated sensory loss to all 4 limbs, notably affecting proprioception. Clinically, patient appears to have a chronic, progressive myeloneuropathy. His clinical presentation and examination findings are not suggestive of either acute or chronic inflammatory demyelinating polyneuropathy (does not look like GBS or CIDP). A hereditary spastic paraparesis is also possible although this group of disorders would not typically include significant polyneuropathy. Furthermore, no clear family history of HSP. Patient's brain MRI not suggestive of multiple sclerosis or demyelinating disease. Furthermore, no evidence of NPH or focal cerebellar atrophy. Again, would recommend MRI of the cervical and thoracic spine without contrast. Outpatient EMG of all 4 limbs. Methylmalonic acid level, copper level, ceruloplasmin, and RPR." (9) Chronic diarrhea: Typically takes Imodium and probiotics We will restart these today Discontinue MiraLAX twice daily as he reports having 9 bowel movements so far today (10) COPD (chronic obstructive pulmonary disease): No acute issues Continue leave albuterol as needed and fluticasone inhaled (11) HLD (hyperlipidemia): Continue statin (12) B12 deficiency: B12 level is borderline low in the 350 range Started B12 1000 mcg IM daily x3 doses (13) CAD (coronary artery disease): asymptomatic Continue home atorvastatin, aspirin He has a history of stents (14) DVT prophylaxis: lovenox SQ Disposition continued stay, may need Ortho SPine Surgery Admission and Anticipated Discharge Date Admission Date: August 18, 2020 Subjective Pt has significant pain down legs R>L. Currently is an 8/10. Also continues to have involuntary movements in legs and lower back and neck pain. Had some SOB earlier which improved with using his inhaler. His loose stool has slowed down since taking Imodium. Review of Systems Review of Systems: All systems reviewed & are unremarkable except as noted in HPI & below Physical Exam Constitutional: WD/WN, vitals as above + obese Eyes: + anicteric sclerae; no nystagmus Neck: trachea midline, no thyromegaly Respiratory: normal respiratory effort, lungs clear to auscultation Cardiovascular: RRR, no murmur, no edema Chest (Breasts): Chest: normal inspection of chest Gastrointestinal (Abdomen): normal bowel sounds, soft, nontender, no hepatosplenomegaly Musculoskeletal: Extremities: extremities normal to inspection; no cyanosis and no clubbing Skin: no rashes, warm and dry Neurologic: moves all extremities and awake; + abnormal deep tendon reflexes (With 3+ reflexes upper and lower extremities and 3 beat clonus ankles) and no focal motor deficits (Can move all extremities but requires assistance and straighten out flexion) Motor/Sensory: no tremor Psychiatric: A+Ox3, euthymic affect Lymphatic: no lymphedema Results & Data Results & Data ([facility]) Vital Signs (Past 12 Hours) Vital Signs Temp Pulse Resp BP Pulse Ox 08/24/20 15:22 36.5 C 97 H 18 128/83 94 08/24/20 07:58 36.6 C 89 16 134/85 93 Laboratory Results 08/24/20 08/24/20 08/24/20 Range/Units 17:13 17:13 07:42 Sodium 138 (136-145) mmol/L Potassium 3.8 (3.5-5.1) mmol/L Chloride 104 (98-107) mmol/L Carbon Dioxide 24 (21-32) mmol/L Anion Gap 10.0 (3-11) BUN 26 H (7-18) mg/dl Creatinine 0.69 (0.6-1.4) mg/dl Est Cr Clr Drug Dosing 142.1 ml/min Est GFR ( Amer) 113.9 ml/min Est GFR (Non-Af Amer) 98.2 ml/min BUN/Creatinine Ratio 37.7 H (10-20) Glucose 99 (70-99) mg/dl Calcium 9.2 (8.5-10.1) mg/dl Total Bilirubin 0.7 (0.2-1) mg/dl AST 50 H (15-37) U/L ALT 31 (12-78) U/L Alkaline Phosphatase 53 (45-117) U/L Total Creatine Kinase 1083 H (39-308) U/L Total Protein 7.4 (6.4-8.2) gm/dl Albumin 3.4 (3.4-5.0) gm/dl Globulin 4.0 (2.5-4.0) gm/dl Albumin/Globulin Ratio 0.9 (0.9-2) Ceruloplasmin Pending Methylmalonic Acid Pending Serum Copper Pending RPR Pending PG Care Time/CCT Total # of Minutes Spent Total Time Spent with Patient: Total time spent is greater than 50% in coordina tion of care (as documented) at patient's floor/unit and/or counseling patient: Coding Level of Care Code 05989 Subseq Hosp Care Lvl 3 Diagnoses Falls W19.XXXA Idiopathic polyneuropathy G60.9 RLS (restless legs syndrome) G25.81 UTI (urinary tract infection) N39.0 BPH (benign prostatic hyperplasia) N40.0 Lumbar stenosis M48.061 Cervical stenosis of spine M48.02 Hyperreflexia R29.2 Chronic diarrhea K52.9 COPD (chronic obstructive pulmonary disease) J44.9 HLD (hyperlipidemia) E78.5 B12 deficiency E53.8 CAD (coronary artery disease) I25.10 DVT prophylaxis Z29.9
[2020-08-24] MEDS: MoRPHine SULFATE 2 MG/ML CARP IV PRN (19:52)
[2020-08-24] MEDS: rOPINIRole HCL 1 MG TABLET PO SCH (19:59)
[2020-08-24] MEDS: TAMSULOSIN HCL 0.4 MG CAP PO SCH (19:59)
[2020-08-24] MEDS: ENOXAPARIN INJ 40 MG/0.4 ML SYR SQ SCH (22:22)
[2020-08-24] MEDS: LORazepam 1 MG/2 ML VIAL IV PRN (23:41)
[2020-08-25] MEDS: MoRPHine SULFATE 2 MG/ML CARP IV PRN (01:36)
[2020-08-25 07:14] LABS: BUN Creatinine Ratio 35.6 (10-20); Calcium 8.7 mg/dl (8.5-10.1); Creatinine Clr Calc Pharmacy 148.6 ml/min; Potassium 3.6 mmol/L (3.5-5.1)
[2020-08-25] MEDS ORDERED: FERROUS SULFATE 325 MG TAB PO SCH (08:00)
--- NOTE | 2020-08-25 09:09 | Magnetic Resonance Report ---
MR cervical spine wo con CLINICAL HISTORY: myelopathy TECHNIQUE: Sagittal and axial T1, T2 and STIR images were obtained. COMPARISON STUDY: No previous studies for comparison. This is limited exam due to motion artifact most affecting sagittal T1 and T2 fat-suppressed and axia l sequence. No acute fracture or dislocation seen. No definite bone marrow lesions are seen. There is loss of normal cervical lordosis and multilevel degenerative changes of the spine. C2-3: Intervertebral disc space narrowing with disc desiccation and left paracentral bulge of the dis c causing mild stenosis of the central canal. Moderate stenosis of bilateral neural foramina is seen at this level. C3-4: Intervertebral disc space narrowing with disc desiccation and posterior osteophytes. Severe st enosis of the central canal and bilateral neuroforamina are seen at this level. There is increase T2 signal within cord slightly distally to C3-C4 disc space level, seen on lateral view only and not appreciated on axial sequence which significantly limited by motion artifact. C4-5: Intervertebral disc space narrowing and disc desiccation. Diffuse bulge of the disc is seen cau sing flattening of thecal sac. Moderate stenosis of bilateral neuroforamina are seen at this level. C5-6 :Intervertebral disc space narrowing and disc desiccation. Mild narrowing of the central canal a nd left neuroforamina. Moderate stenosis of the right neuroforamina. C6-7: Intervertebral disc space narrowing with disc desiccation and osteophytes. Mild diffuse bulge o f the disc is seen causing flattening of thecal sac. Stenosis of bilateral neuroforamina are seen at this level. C7-T1: Intervertebral disc spaces preserved. Disc desiccation is seen. Central canal is patent. Mild narrowing of bilateral neuroforamina are seen at this level. IMPRESSION: 1. Multilevel degenerative changes of the spine. Severe stenosis at C3-C4 level associated with incr ease T2 signal within the cord which could represent myelopathy. Evaluation is limited due to motion artifact. ACT 112: Positive. There are findings on this exam that require communication between the performing entity and the patient following Patient Test Result Information Act ([place] Act 112) guidelines. The above report was generated using voice recognition software. It may contain grammatical, syntax o r spelling errors. Electronically signed by: Hyacinth Gale DO 08/25/2020 9:07 AM
[2020-08-25] MEDS: CYANOCOBALAMIN 1000 MCG/ML VIAL IM SCH (09:37)
[2020-08-25] MEDS: AMOXICILLIN/CLAVULANATE 875 MG TAB PO SCH ×2 (09:37→18:00)
[2020-08-25] MEDS: ATORVASTATIN 40 MG TAB PO SCH (09:38)
[2020-08-25] MEDS: ASPIRIN 81 MG CHEW PO SCH (09:38)
[2020-08-25] MEDS: FERROUS GLUCONATE 324 MG TAB PO SCH ×2 (09:39→18:00)
[2020-08-25] MEDS: GABAPENTIN 600 MG TAB PO SCH ×2 (09:39→20:04)
[2020-08-25] MEDS: FLUoxetine HCL 20 MG CAP PO SCH (09:39)
[2020-08-25] MEDS: BACLOFEN 20 MG TAB PO SCH ×2 (09:39→20:04)
[2020-08-25] MEDS: FLUTICASONE FUROATE 200MCG 14 PUFFS/INHALER INH SCH (09:40)
[2020-08-25] MEDS: ADVANCED PROBIOTIC 1250 MG CAPSULE PO SCH ×3 (09:40→20:04)
[2020-08-25] MEDS ORDERED: MoRPHine SULFATE 4 MG/ML 1 ML CARP\\VIAL IV PRN (13:08)
--- NOTE | 2020-08-25 13:10 | Orthopedic Progress Note ---
Date of Service August 25, 2020 Assessment & Plan (1) Cervical stenosis of spine: Admission and Anticipated Discharge Date Admission Date: August 18, 2020 Patient has completed his cervical MRI. Was able to view it this morning of discussed the results with the patient. He has severe cervical spinal stenosis C3-C4 with myelomalacia. This is clearly contributing to his physical status and inability to ambulate and use his arms. I discussed surgical decompression which would require an anterior cervical discectomy fusion C3-C4. Risk benefits pros cons and alternatives were outlined in detail. Risk include but not limited to from anesthesia blindness stroke paralysis nerve damage blood loss requiring transfusion infection requiring reoperation dysphonia dysphagia. Passively stabilization the cervical spine halting the progression of myelopathy and hopefully in time improvement of his function. Patient stands agrees and would like to proceed with surgery. We will try to perform this on an urgent basis first thing in the morning. We will make him n.p.o. after midnight. Subjective Patient continues to complain of arm numbness and inability to ambulate Physical Exam Physical Exam: On exam he continues to exhibit hyperreflexia and bilateral Alli sign in the upper extremities. Results & Data ([facility]) Vital Signs (Past 12 Hours) Vital Signs Temp Pulse Resp BP Pulse Ox 08/25/20 07:53 36.9 C 84 22 130/77 91
--- NOTE | 2020-08-25 13:18 | Hospitalist Progress Note ---
Date of Service August 25, 2020 Assessment & Plan (1) Falls: Presents with numerous falls and a history of idiopathic polyneuropathy based on EMG of the left upper and left lower extremity in 07/2019 With paresthesias in all 4 extremities, hyperreflexia, chronic neck and lower back pain CT cervical spine with significant facet arthritis, lumbar MRI with spinal stenosis and HNP at L2-L3 causing severe impingement on L3 nerve root C-spine MRI also with severe stenosis at C3-4 with increased cord signal indicative of myelopathy--> this accounts for all his symptoms MRI brain is normal PT/OT consultations appreciated Consult neurology and orthopedic spine surgery as below Plan for ACDF tomorrow with Dr. Cruz In regards to his perioperative risk assessment: He has a h/o 2 stents placed in heart 11 years ago and no angina or VACA since that time. ECG here is with old inf infarct, no acte ischemia and he is asymptomatic. Prior to his issues with ambulation due to neck and back stenosis, he reports no trouble with exertional angina and activity He is at average perioperative risk and should proceed with surgery as planned. He has no evidence of renal dysfunction or CHF on exam, no murumur, but will check baseline preop ECHO to assess EF, valves. -hold Lovenox for surgery, ASA ok to continue. He is not on a beta mercedes-will not add on now (2) Cervical stenosis of spine: As above Consult orthopedic spine surgeon appreciated (3) Idiopathic polyneuropathy: see above Restarted on gabapentin Consulting neurology-recommends B12, methylmalonic acid, copper level, ceruloplasmin, and RPR; also needs EMG all four extremities as outpt MRI T -spine pending MRI C-spine as above (4) RLS (restless legs syndrome): RLS/neuropathy -presented with involuntary movements, contractures and muscle stiffness of the lower extremities that is fairly acute increased gabapentin and is improving continur Requip With spinal stenosis as above likely contributing Consulting neurology-appreciated Given muscle stiffness, checked CK and mildly elevated at 1000-mild rhabdomyolysis-gave IVFs NS x 1 L and now down to 400s With Fe deficiency-replace iron orally (5) UTI (urinary tract infection): related to BPH. finish out course of abx with Augmentin x14-day course, doing well in this regard. Possibly physiologic/inflammatory stress from UTI was what led to the flareup of his neurologic condition. Rashid catheter remains in place and will follow up with urology as an outpatient May have also had some neurogenic component to urinary retention? (6) BPH (benign prostatic hyperplasia): with significant LUTS leading to urinary retention and current infection. With significant prostamegaly on CT abdomen/pelvis Continue rashid drainage until seeing urology after discharge, outpt urology f/u to be arranged (7) Lumbar stenosis: Consult orthopedic spine [id number] significant L2-3 right sided disc protrusion and compression--> plan for BÁRBARA as per ortho SPine Continue baclofen add IV morphine prn pain and increase dose today to 4mg IV q4hrs ativan prn spasm of legs for MRI (8) Hyperreflexia: With 3+ reflexes throughout and 3 beats of clonus in bilateral ankles With contractures and stiffness throughout lower extremities Polyneuropathy - with cervical spine myelopathy Appreciate Neuro consult: with "progressive spastic weakness of both lower extremities with hyperreflexia and bilateral upgoing toes with associated sensory loss to all 4 limbs, notably affecting proprioception. Clinically, patient appears to have a chronic, progressive myeloneuropathy. His clinical presentation and examination findings are not suggestive of either acute or chronic inflammatory demyelinating polyneuropathy (does not look like GBS or CIDP). A hereditary spastic paraparesis is also possible although this group of disorders would not typically include significant polyneuropathy. Furthermore, no clear family history of HSP. Patient's brain MRI not suggestive of multiple sclerosis or demyelinating disease. Furthermore, no evidence of NPH or focal cerebellar atrophy. Again, would recommend MRI of the cervical and thoracic spine without contrast. Outpatient EMG of all 4 limbs. Methylmalonic acid level, copper level, ceruloplasmin, and RPR." now having cervical spine ACDF tomorrow (9) Chronic diarrhea: continue Imodium and probiotics (10) COPD (chronic obstructive pulmonary disease): No acute issues Continue leave albuterol as needed and fluticasone inhaled (11) HLD (hyperlipidemia): Continue statin (12) B12 deficiency: B12 level is borderline low in the 350 range Started B12 1000 mcg IM daily x3 doses (13) CAD (coronary artery disease): asymptomatic, with h/o 2 stents placed in 2009 at [facility] in [place], [place] as above, periop risk is average Continue home atorvastatin, aspirin not on beta mercedes (14) DVT prophylaxis: lovenox SQ-placed on HOLD for surgery tomorrow Disposition continued stay, now to have surgery tomorrow Admission and Anticipated Discharge Date Admission Date: August 18, 2020 Subjective Pt continues to have significant pain down RLE and legs spasming. Hs is very happy to hear he is going to have c-spine surgery with Dr. Cruz tomorrow. Is requesting stronger dose of pain medicine. Reports he had 2 stents put in his heart 11 years ago at [facility] in [place], [place]. He reports no trouble with his heart ever since and has not had any angina or difficulty with exertional dyspnea since that time. I discussed his care with RN and with Ortho SPine Review of Systems Review of Systems: All systems reviewed & are unremarkable except as noted in HPI & below Physical Exam Constitutional: WD/WN, vitals as above + obese Eyes: + anicteric sclerae Neck: trachea midline, no thyromegaly Respiratory: normal respiratory effort, lungs clear to auscultation Cardiovascular: RRR, no murmur, no edema Chest (Breasts): Chest: normal inspection of chest Gastrointestinal (Abdomen): normal bowel sounds, soft, nontender, no hepatosplenomegaly Musculoskeletal: Extremities: extremities normal to inspection; no cyanosis and no clubbing Skin: no rashes, warm and dry Neurologic: moves all extremities and awake; + abnormal deep tendon reflexes (With 3+ reflexes upper and lower extremities and 3 beat clonus ankles) and no focal motor deficits (Can move all extremities but requires assistance and straighten out flexion) Motor/Sensory: no tremor Psychiatric: A+Ox3, euthymic affect Lymphatic: no lymphedema Results & Data Results & Data ([facility]) Vital Signs (Past 12 Hours) Vital Signs Temp Pulse Resp BP Pulse Ox 08/25/20 07:53 36.9 C 84 22 130/77 91 Laboratory Results 08/25/20 08/24/20 08/24/20 Range/Units 06:12 17:13 17:13 Sodium 137 (136-145) mmol/L Potassium 3.6 (3.5-5.1) mmol/L Chloride 105 (98-107) mmol/L Carbon Dioxide 25 (21-32) mmol/L Anion Gap 8.0 (3-11) BUN 24 H (7-18) mg/dl Creatinine 0.66 (0.6-1.4) mg/dl Est Cr Clr Drug Dosing 148.6 ml/min Est GFR ( Amer) 116.0 ml/min Est GFR (Non-Af Amer) 100.0 ml/min BUN/Creatinine Ratio 35.6 H (10-20) Glucose 102 H (70-99) mg/dl Calcium 8.7 (8.5-10.1) mg/dl Total Creatine Kinase 457 H (39-308) U/L Ceruloplasmin Pending Methylmalonic Acid Pending Serum Copper Pending RPR Nonreactive (Nonreactive) Diagnostic Findings Cervical Spine MRI 08/24/20 17:08 MR cervical spine wo con CLINICAL HISTORY: myelopathy TECHNIQUE: Sagittal and axial T1, T2 and STIR images were obtained. COMPARISON STUDY: No previous studies for comparison. This is limited exam due to motion artifact most affecting sagittal T1 and T2 fat-suppressed and axial sequence. No acute fracture or dislocation seen. No definite bone marrow lesions are seen. There is loss of normal cervical lordosis and multilevel degenerative changes of the spine. C2-3: Intervertebral disc space narrowing with disc desiccation and left paracentral bulge of the disc causing mild stenosis of the central canal. Moderate stenosis of bilateral neural foramina is seen at this level. C3-4: Intervertebral disc space narrowing with disc desiccation and posterior osteophytes. Severe stenosis of the central canal and bilateral neuroforamina are seen at this level. There is increase T2 signal within cord slightly distally to C3-C4 disc space level, seen on lateral view only and not appreciated on axial sequence which significantly limited by motion artifact. C4-5: Intervertebral disc space narrowing and disc desiccation. Diffuse bulge of the disc is seen causing flattening of thecal sac. Moderate stenosis of bilateral neuroforamina are seen at this level. C5-6 :Intervertebral disc space narrowing and disc desiccation. Mild narrowing of the central canal and left neuroforamina. Moderate stenosis of the right neuroforamina. C6-7: Intervertebral disc space narrowing with disc desiccation and osteophytes. Mild diffuse bulge of the disc is seen causing flattening of thecal sac. Stenosis of bilateral neuroforamina are seen at this level. C7-T1: Intervertebral disc spaces preserved. Disc desiccation is seen. Central canal is patent. Mild narrowing of bilateral neuroforamina are seen at this level. IMPRESSION: 1. Multilevel degenerative changes of the spine. Severe stenosis at C3-C4 level associated with increase T2 signal within the cord which could represent myelopathy. Evaluation is limited due to motion artifact. ACT 112: Positive. There are findings on this exam that require communication between the performing entity and the patient following Patient Test Result Information Act ([place] Act 112) guidelines. The above report was generated using voice recognition software. It may contain grammatical, syntax or spelling errors. Electronically signed by: Hyacinth Gale DO 08/25/2020 9:07 AM PG Care Time/CCT Total # of Minutes Spent Total Time Spent with Patient: Total time spent is greater than 50% in coordination of care (as documented) at patient's floor/unit and/or counseling patient: Coding Level of Care Code 57554 Subseq Hosp Care Lvl 3 Diagnoses Falls W19.XXXA Cervical stenosis of spine M48.02 Idiopathic polyneuropathy G60.9 RLS (restless legs syndrome) G25.81 UTI (urinary tract infection) N39.0 BPH (benign prostatic hyperplasia) N40.0 Lumbar stenosis M48.061 Hyperreflexia R29.2 Chronic diarrhea K52.9 COPD (chronic obstructive pulmonary disease) J44.9 HLD (hyperlipidemia) E78.5 B12 deficiency E53.8 CAD (coronary artery disease) I25.10 DVT prophylaxis Z29.9
--- NOTE | 2020-08-25 17:04 | XCELERA ---
[id number] \\[id number]
--- NOTE | 2020-08-25 18:15 | Anesthesiology Consultation ---
Date of Service August 25, 2020 Assessment & Plan Chart Review Chart Review: Acceptable Risk for Surgery and Patient NOT seen in Pre Admission Testing Consults Requested none ASA ASA4 Proposed Anesthesia Anesthesia Type: General History Surgery Operation Date: 08/26/20 07:30 Proposed Procedures p C3-C4 Anterior Cervical Discectomy Fusion with Spinal Cord Monitoring - Joycelyn Cruz DO Height/Weight Height: 6 ft 1 in Weight: 121.9 kg Allergies Allergy/AdvReac Type Severity Reaction Status Date / Time gemfibrozil [From Lopid] Allergy Unknown Unverified 08/18/20 15:16 Medications Home Medications Medication Instructions Recorded Confirmed Last Taken acetaminophen 1,000 mg PO TID PRN 08/18/20 08/18/20 Unknown acidophilus-pectin, citrus 1 cap PO TID 08/18/20 08/18/20 Unknown [Acidophilus Probiotic] aspirin 81 mg PO DAILY 08/18/20 08/18/20 Unknown atorvastatin 40 mg PO DAILY 08/18/20 08/18/20 Unknown baclofen 20 mg PO BID 08/18/20 08/18/20 Unknown ciclesonide [Alvesco] 1 puff INHALATION BID 08/18/20 08/18/20 Unknown diclofenac sodium 50 mg PO TID 08/18/20 08/18/20 Unknown fluoxetine 80 mg PO DAILY 08/18/20 08/18/20 Unknown levalbuterol tartrate [Xopenex HFA] 2 inh INHALATION Q6H PRN 08/18/20 08/18/20 Unknown loperamide [Imodium A-D] 2 mg PO QID PRN 08/18/20 08/18/20 Unknown oxcarbazepine [Trileptal] 150 mg PO BID 08/18/20 08/18/20 Unknown ropinirole 1 mg PO HS 08/18/20 08/18/20 Unknown Active Medications Generic Name Dose Route Start Last Admin Trade Name Freq PRN Reason Stop Dose Admin Acetaminophen 1,000 mg 08/18/20 21:24 08/24/20 17:46 Acetaminophen 500 Mg Tab PO 09/17/20 21:23 1,000 mg TID PRN Administration Pain Amoxicillin/Clavulanate Potassium 1 tab 08/21/20 17:00 08/25/20 09:37 Amoxicillin/Clavulanate 875 Mg Tab PO 08/31/20 16:59 1 tab BIDM KILEY Administration Aspirin 81 mg 08/19/20 09:00 08/25/20 09:38 Aspirin 81 Mg Chew PO 09/18/20 08:59 81 mg DAILY KILEY Administration Atorvastatin Calcium 40 mg 08/19/20 09:00 08/25/20 09:38 Atorvastatin 40 Mg Tab PO 09/18/20 08:59 40 mg DAILY KILEY Administration Baclofen 20 mg 08/18/20 22:00 08/25/20 09:39 Baclofen 20 Mg Tab PO 09/17/20 21:59 20 mg BID KILEY Administration Ferrous Gluconate 324 mg 08/24/20 19:30 08/25/20 09:39 Ferrous Gluconate 324 Mg Tab PO 09/23/20 19:29 324 mg BIDM KILEY Administration Fluoxetine HCl 80 mg 08/19/20 09:00 08/25/20 09:39 Fluoxetine Hcl 20 Mg Cap PO 09/18/20 08:59 80 mg DAILY KILEY Administration Fluticasone Furoate 1 puffs 08/19/20 09:00 08/25/20 09:40 Fluticasone Furoate 200mcg 14 Puffs/Inhaler INH 09/18/20 08:59 1 puffs DAILY KILEY Administration Protocol Gabapentin 600 mg 08/21/20 21:00 08/25/20 09:39 Gabapentin 600 Mg Tab PO 09/20/20 20:59 600 mg BID KILEY Administration Lorazepam 1 mg in 2 mls @ 0.5 mls/min 08/22/20 20:01 08/24/20 23:41 Ativan IV 09/21/20 20:00 0.5 mls/min UD PRN Administration MRI sedation Lactobacillus Acidoph/Casei/Rhamnos 2 cap 08/24/20 09:00 08/25/20 13:21 Advanced Probiotic 1250 Mg Capsule PO 09/23/20 08:59 2 cap TID KILEY Administration Loperamide HCl 2 mg 08/24/20 00:52 08/24/20 11:45 Loperamide Hcl 2 Mg Cap PO 09/23/20 00:51 2 mg QID PRN Administration Diarrhea Morphine Sulfate 4 mg 08/25/20 13:08 08/25/20 13:21 Morphine Sulfate 4 Mg/Ml 1 Ml Carp\\Vial IV 09/07/20 18:41 4 mg Q4H PRN Administration Pain Ondansetron HCl 4 mg 08/20/20 19:53 08/20/20 20:30 Ondansetron Inj 2 Mg/Ml 2 Ml Vial IV 09/19/20 19:52 4 mg Q6H PRN Administration Nausea And Vomiting Ropinirole HCl 1 mg 08/18/20 22:00 08/24/20 19:59 Ropinirole Hcl 1 Mg Tablet PO 09/17/20 21:59 1 mg HS KILEY Administration Tamsulosin HCl 0.4 mg 08/18/20 22:00 08/24/20 19:59 Tamsulosin Hcl 0.4 Mg Cap PO 09/17/20 21:59 0.4 mg HS KILEY Administration Past Medical History Medical History Anemia B12 deficiency CAD (coronary artery disease) Cervical stenosis of spine Chronic diarrhea HLD (hyperlipidemia) Idiopathic polyneuropathy Lumbar stenosis Obesity Seizure disorder Exercise / Class Metabolic Activity III < 4 Walking/Shop/Light housework Past Family History Family History Mother Diabetes Father Coronary heart disease Diabetes Myocardial infarction Past Surgical History Surgical History H/O toe surgery History of carpal tunnel release of both wrists Stented coronary artery Past Anesthesia History No Hx of Anesthesia Complications and No Family Hx of Anesthesia Complications History of PONV No Hx of PONV and No Hx of Motion Sickness Social History Smoking Status: Former smoker Hx Alcohol Use: Yes Alcohol type: beer and hard liquor Alcohol Intake Frequency Comment: "years ago" per pt substance use type: does not use Physical Exam Vital Signs Last Vital Signs Temp 36.6 C 08/25/20 15:25 Pulse 83 08/25/20 15:25 Resp 18 08/25/20 15:25 BP 134/79 08/25/20 15:25 Pulse Ox 90 08/25/20 15:25 Testing Laboratory Results 08/23/20 10:56 08/25/20 06:12 PT 10.2 Seconds (9.0-12.0) 08/18/20 13:24 INR 1.0 (0.9-1.1) 08/18/20 13:24 APTT 22.1 Seconds (21.0-31.0) 08/18/20 13:24 Urine Color Yellow 08/18/20 10:12 Urine Appearance Cloudy (Clear) A 08/18/20 10:12 Urine pH 7.0 (4.5-7.5) 08/18/20 10:12 Ur Specific Fortine 1.044 (1.000-1.030) H 08/18/20 10:12 Urine Protein Trace (Negative) H 08/18/20 10:12 Urine Glucose (UA) Negative (Negative) 08/18/20 10:12 Urine Ketones Trace (Negative) H 08/18/20 10:12 Urine Nitrite Positive (Negative) A 08/18/20 10:12 Ur Leukocyte Esterase 2+ (Negative) H 08/18/20 10:12 Urine WBC (Auto) >30 /hpf (0-5) H 08/18/20 10:12 Urine RBC (Auto) >30 /hpf (0-4) H 08/18/20 10:12 U Hyaline Cast (Auto) 1-5 /lpf (0-5) 08/18/20 10:12 U Epithel Cells (Auto) 0-5 /lpf (0-5) 08/18/20 10:12 Urine Bacteria (Auto) 4+ (Negative) H 08/18/20 10:12 08/18/20 10:12 Urine Culture - Final Urine,Straight Cath Klebsiella oxytoca Electrocardiogram Date: 08/18/20 Findings: + NSR @ (at 76;low voltage;possible inferior infarct) Echocardiogram Date: 08/25/20 EF: 55% LV Function: normal RWMA: + none Other Findings: + diastolic dysfunction (Grade 1) RV-mildly dilated; RV is hyperdynamic Other Testing CT chest 08/18/2020-moderate coronary artery calcifications;mild emphysema
[2020-08-25] MEDS: TAMSULOSIN HCL 0.4 MG CAP PO SCH (20:04)
[2020-08-25] MEDS: rOPINIRole HCL 1 MG TABLET PO SCH (20:04)
[2020-08-25] MEDS: LORazepam 1 MG/2 ML VIAL IV PRN (20:48)
[2020-08-26] MEDS ORDERED: fentaNYL citrate 100 MCG/2 ML VIAL ONE (06:46)
[2020-08-26] MEDS ORDERED: MIDAZOLAM HCL 1 MG/ML 2ML VIAL ONE (06:46)
[2020-08-26 07:07] LABS: Basophils # (auto) 0.02 K/uL (0-0.2); Basophils % (auto) 0.3 %; Eosinophils # (auto) 0.09 K/uL (0-0.5); Eosinophils % (auto) 1.3 %; Hemoglobin 11.5 g/dL (14.0-18.0); Immature Granulocytes # (auto) 0.03 K/uL (0.00-0.02); Immature Granulocytes % (auto) 0.4 %; Lymphocytes # (auto) 1.16 K/uL (1.2-3.4); Lymphocytes % (auto) 16.7 %; Mean Corpuscular Hgb Conc 33.8 g/dL (32-36); Mean Corpuscular Volume 97.4 fL (80-100); Mean Platelet Volume 9.5 fL (7.4-10.4); Monocytes # (auto) 0.68 K/uL (0.11-0.59); Monocytes % (auto) 9.8 %; Neutrophils # (auto) 4.96 K/uL (1.4-6.5); Neutrophils % (auto) 71.5 %; Platelet Count 221 K/uL (130-400); RDW Coefficient of Variation 12.8 % (11.5-14.5); RDW Standard Deviation 45.5 fL (36.4-46.3); Red Blood Count 3.49 M/uL (4.7-6.1); White Blood Count 6.94 K/uL (4.8-10.8)
[2020-08-26] MEDS ORDERED: ONDANSETRON INJ 2 MG/ML 2 ML VIAL IV PRN ×2 (07:09→10:50)
[2020-08-26] MEDS ORDERED: ATROPINE SULFATE 0.1 MG/ML 10ML SYR IV PRN (07:09)
[2020-08-26] MEDS ORDERED: HYDROmorphone INJ 1 MG/ML SYRINGE IV PRN (07:09)
[2020-08-26] MEDS ORDERED: PHENYLEPHRINE 100MCG/ML 5ML SYR IV PRN (07:09)
[2020-08-26] MEDS ORDERED: MEPERIDINE HCL 25 MG/ML CARP/VIAL IV PRN (07:09)
[2020-08-26] MEDS ORDERED: LABETALOL HCL IV 5 MG/ML 20ML IV PRN (07:09)
[2020-08-26] MEDS ORDERED: ePHEDrine sulfate 50 MG/ML AMP IV PRN (07:09)
[2020-08-26] MEDS ORDERED: fentaNYL citrate 100 MCG/2 ML VIAL IV PRN (07:09)
--- NOTE | 2020-08-26 07:13 | History & Physical Bridge Note ---
Date of Service August 26, 2020 History & Physical Bridge Note I have examined the patient, reviewed the History & Physical and in the interval since the performance of the History & Physical I have noted the following changes of clinical significance: no changes noted Anterior cervical discectomy and fusion C3-C4
[2020-08-26] MEDS ORDERED: ceFAZolin 2,000 MG/15 ML IV PUSH IV ONE (07:21)
[2020-08-26 07:33] LABS: BUN Creatinine Ratio 28.3 (10-20); Creatinine Clr Calc Pharmacy 150.8 ml/min; Est GFR (African American) 116.7 ml/min; Est GFR (Non-African American) 100.7 ml/min; Potassium 3.5 mmol/L (3.5-5.1)
[2020-08-26 07:37] LABS: Prostate Specific Antigen 2.17 ng/ml (0-4)
[2020-08-26] MEDS ORDERED: PHENYLEPHRINE 100MCG/ML 5ML SYR ONE (07:42)
[2020-08-26] MEDS ORDERED: LIDOCAINE 2% 2 ML VIAL/AMP(20MG/ML) INFIL ONE (08:12)
[2020-08-26] MEDS ORDERED: NEOSTIGMINE METHYLSULFATE 1 MG/ML 10ML VIAL ONE (08:12)
[2020-08-26] MEDS ORDERED: PROPOFOL IV EMULSION 10 MG/ML 20 ML VIAL IV ONE (08:12)
[2020-08-26] MEDS ORDERED: ROCURONIUM BROMIDE 10 MG/ML 5 ML VIAL IV ONE (08:12)
[2020-08-26] MEDS ORDERED: GLYCOPYRROLATE 0.2 MG/ML VIAL ONE ×2 (08:12→09:00)
[2020-08-26] MEDS ORDERED: DEXAMETHASONE SOD INJ 4 MG/ML VIAL ONE (08:12)
[2020-08-26] MEDS ORDERED: ONDANSETRON INJ 2 MG/ML 2 ML VIAL ONE (08:12)
--- NOTE | 2020-08-26 09:05 | Operative Report ---
Post Operative Report Pre & Post Diagnosis Operation Date: 08/26/20 07:30 Pre-Op Diagnosis: Cervical spinal stenosis with myelopathy Post-Op Diagnosis: Same I identified the patient and participated in the time-out.: Yes Procedure Operation Date: 08/26/20 07:30 Actual Procedures #1 anterior cervical discectomy with bilateral foraminotomies C3-C4. #2 an terior cervical arthrodesis C3-C4. #3 placement of 8 mm spiral cage filled with I factor C3-C4. #4 application of 5 complete screws across C3-C4. Surgeon Thai Cruz, DO Lead Oxide Mill Tender Pam Daniels Estimated Blood Loss 10 Findings See Below Patient is 6 foot 1 inches tall weighing over 121 kg with a BMI in excess of 35. Patient's body habitus did contribute to significant technical difficulty with patient positioning and exposure. This at least 25% increase to the operative time. Specimens None Indications This is a 65-year-old male that presents with significant decline and obvious myelomalacia and is here for urgent anterior cervical discectomy and fusion Description of Procedure Patient met with identified informed consent obtained. Patient was then taken to the operative suite underwent ablation placed in a supine position the Isra table head Blandon head start coordinator. All bony prominences well-padded eyes inspected to ensure no external pressure placed upon the. This point the anterior cervical spine was prepped and draped in a sterile fashion. With the assistance of fluoroscopy identified the C3-C4 displacement transverse incision was placed along the right anterior aspect of the cervical spine overlying this region. Sharp dissection with the assistance of bipolar cautery was performed down to and exposing the anterior cervical spine at C3-C4. A separate retractor was placed. Then performed a complete discectomy of C3-C4 out to the uncovertebral joints bilaterally. [place] distracting pins were utilized to assist in visualization. Removed all posterior annular fibers longitudinal ligament bilateral foraminotomies performed. Endplates were then burred to subcortical being bone and an 8 mm spiral cage filled with I factor tapped in position. Distracting apparatus was removed and a 5 complete screws applied with the assistance of fluoroscopy. The incision was then copiously irrigated explored to ensure no damage to surrounding structures remaining bleeding. 10 round CASSIE drain inserted. Incision was then closed with 2 Vicryl in the fascia 4 Monocryl for final skin closure. Steri-Strip sterile dressings placed. Patient will continue PACU stable condition. Please note spinal cord monitoring was utilized at the procedure no changes noted. Lastly Pam Daniels was present at the entire surgery involved the patient positioning complex portions of the surgery and final skin closure. I attest to the content of the Intraoperative Record and any orders documented therein. Any exceptions are noted below.
--- NOTE | 2020-08-26 09:09 | Magnetic Resonance Report ---
THORACIC SPINE MRI HISTORY: Back pain. myelopathy TECHNIQUE: Multiplanar multisequence MRI of the thoracic spine was performed without the use of contr ast. COMPARISON: None. FINDINGS: No fracture or subluxation. Mild kyphosis of the mid thoracic spine. There is mild diffuse disc space narrowing throughout the thoracic spine with small anterior osteophytes. The thoracic spinal cord de monstrates a normal signal intensity. There are few small broad-based posterior disc bulges within th e mid to lower thoracic spine without significant central canal or neural foraminal narrowing. No dis c herniations identified. Paravertebral soft tissues are within normal limits. IMPRESSION: 1. No fracture or subluxation within the thoracic spine. 2. Mild degenerative changes without significant central canal or neural foraminal narrowing. 3. Normal thoracic spinal cord. ACT 112: Negative or not required by law. Electronically signed by: Javier Tam M.D. 08/26/2020 9:07 AM
[2020-08-26] MEDS ORDERED: FLOSEAL HEMOSTATIC MATRIX 10ML TOP ONE (09:10)
--- NOTE | 2020-08-26 10:07 | Fluoroscopy Report ---
FL cervical 2-3V CLINICAL HISTORY: C3-C4 ACDF COMPARISON STUDY: Cervical spine CT August 18, 2020. Cervical spine MRI August 25, 2020. FLUOROSCOPY TIME: 11 seconds. FLUOROSCOPIC IMAGES: 2 FINDINGS: Fluoroscopy was provided during the C3-C4 anterior discectomy and fusion. Interbody spacer is noted. Sponge markers on the first image are not present on the final image obtained at 9:10 AM. S urgical drain is in place. IMPRESSION: Fluoroscopy provided during C3-C4 anterior discectomy fusion. ACT 112: Negative or not required by law. Electronically signed by: Raheel Chaidez M.D. 08/26/2020 10:05 AM
--- NOTE | 2020-08-26 10:07 | Anesthesiology Progress Note ---
Date of Service August 26, 2020 Anesthesia Post Procedure Vital Signs Vital Signs: Temp Pulse Pulse Resp BP Pulse Ox 08/26/20 10:00 83 18 147/89 H 92 08/26/20 09:50 88 16 142/93 H 92 08/26/20 09:40 92 H 15 155/90 H 97 08/26/20 09:30 84 14 131/95 97 08/26/20 09:22 36.0 C L 89 16 171/84 H 97 08/26/20 07:09 36.8 C 84 18 140/88 93 08/25/20 15:25 36.6 C 83 18 134/79 90 Pain Intensity Right Hip: Pain Intensity: 8 Bilateral Back: Pain Intensity: 4 Transfer of Care Handoff Completed per policy Notes Mental Status: alert / awake / arousable Patient Amnestic to Procedure: Yes Nausea / Vomiting: adequately controlled Pain: adequately controlled Airway Patency, RR, SpO2: stable & adequate BP & HR: stable & adequate Hydration State: stable & adequate Anesthetic Complications: no major complications apparent and Pt Satisfied with anesthetic care Notes: The patient is awake and has minimal surgical pain. He has pain related to his hip which is a chronic pain. The patient's neck is not swollen and does not appear to have any bleeding under his C collar. He will have continuous pulse oximetry on the floor.
[2020-08-26] MEDS ORDERED: FAMOTIDINE 20 MG TAB PO PRN (10:50)
[2020-08-26] MEDS ORDERED: RACEPINEPHRINE 2.25% NEBU SOLN 0.5 ML VIAL INH PRN (10:50)
[2020-08-26] MEDS ORDERED: NALOXONE HCL 0.4 MG/1 ML VIAL/CARP IV PRN (10:50)
[2020-08-26] MEDS ORDERED: METOCLOPRAMIDE HCL INJ 5 MG/ML 2 ML VIAL IV PRN (10:50)
[2020-08-26] MEDS ORDERED: hydrOXYzine HCl 25 MG TAB PO PRN (10:50)
[2020-08-26] MEDS ORDERED: HYDROmorphone INJ 0.5 MG/0.5 ML SYR IV PRN (10:50)
[2020-08-26] MEDS ORDERED: ACETAMINOPHEN 1,000 MG/100 ML VIAL IV PRN (10:50)
[2020-08-26] MEDS ORDERED: dexAMETHasone 8 MG in SYRINGE 0 ML IV PRN (10:50)
[2020-08-26] MEDS ORDERED: LORazepam 0.5 MG/1 ML VIAL IV PRN (10:50)
[2020-08-26] MEDS ORDERED: DO NOT ADMINISTER FLU VACCINE PRN (10:50)
[2020-08-26] MEDS ORDERED: PROMETHAZINE HCL 12.5 MG in SODIUM CHLORIDE 0.9% 50 ML IV PRN (10:50)
[2020-08-26] MEDS ORDERED: ONDANSETRON 4 MG OD TAB PO PRN (10:50)
[2020-08-26] MEDS ORDERED: MAGNESIUM HYDROXIDE SUSP 30 ML UDC PO PRN (10:50)
[2020-08-26] MEDS ORDERED: SOD PHOSPHATE/SOD BIPHOSPHATE ENEMA 132 ML BTL PR PRN (10:50)
[2020-08-26] MEDS ORDERED: ALUMINUM/MAGNESIUM SUSP 30 ML UDC PO PRN (10:50)
[2020-08-26] MEDS ORDERED: ACETAMINOPHEN 500 MG TAB PO PRN (10:50)
[2020-08-26] MEDS ORDERED: LORazepam 0.5 MG TAB PO PRN (10:50)
[2020-08-26] MEDS ORDERED: DO NOT ADMINISTER PNEUMOCOCCAL VACCINE PRN (10:50)
[2020-08-26] MEDS ORDERED: diphenhydrAMINE Capsule 25 MG CAP PO PRN (10:50)
[2020-08-26] MEDS: FLUTICASONE FUROATE 200MCG 14 PUFFS/INHALER INH SCH (11:55)
[2020-08-26] MEDS: FERROUS GLUCONATE 324 MG TAB PO SCH ×2 (11:56→18:22)
[2020-08-26] MEDS: ADVANCED PROBIOTIC 1250 MG CAPSULE PO SCH ×3 (11:56→20:59)
[2020-08-26] MEDS: GABAPENTIN 600 MG TAB PO SCH ×2 (11:56→21:00)
[2020-08-26] MEDS: FLUoxetine HCL 20 MG CAP PO SCH (11:56)
[2020-08-26] MEDS: AMOXICILLIN/CLAVULANATE 875 MG TAB PO SCH ×2 (11:56→17:45)
[2020-08-26] MEDS: ASPIRIN 81 MG CHEW PO SCH (11:57)
[2020-08-26] MEDS: BACLOFEN 20 MG TAB PO SCH ×2 (11:57→20:58)
[2020-08-26] MEDS: ATORVASTATIN 40 MG TAB PO SCH (11:57)
[2020-08-26] MEDS: HYDROmorphone INJ 1 MG/ML SYRINGE IV PRN (12:01)
[2020-08-26] MEDS: LACTATED RINGER'S 1,000 ML IV SCH ×2 (12:30→18:40)
[2020-08-26] MEDS: dexAMETHasone 6 MG in SYRINGE 0 ML IV SCH ×2 (13:15→19:34)
[2020-08-26] MEDS: oxyCODONE HCL IR 5 MG TAB (IMMEDIATE RELEASE) PO PRN ×3 (13:27→21:04)
[2020-08-26] MEDS: ceFAZolin 2000MG 2,000 MG/15 ML SYR IV SCH ×2 (17:45→23:20)
--- NOTE | 2020-08-26 18:37 | Hospitalist Progress Note ---
Date of Service August 26, 2020 Assessment & Plan (1) Falls: Presents with numerous falls and a history of idiopathic polyneuropathy based on EMG of the left upper and left lower extremity in 07/2019 With paresthesias in all 4 extremities, hyperreflexia, spasticity in LEs, chronic neck and lower back pain CT cervical spine with significant facet arthritis, lumbar MRI with spinal stenosis and HNP at L2-L3 causing severe impingement on L3 nerve root C-spine MRI also with severe stenosis at C3-4 with increased cord signal indicative of myelopathy--> this accounts for all his symptoms MRI brain is normal PT/OT consultations appreciated Consult neurology and orthopedic spine surgery as below Now s/p ACDF on 08/[address] Cruz -continue pain control -bowel regimen -post-op care as per Ortho (2) Cervical stenosis of spine: As above Consult orthopedic spine surgeon appreciated (3) Idiopathic polyneuropathy: see above Restarted on gabapentin Consulting neurology-recommends B12, methylmalonic acid, copper level, ceruloplasmin, and RPR; also needs EMG all four extremities as outpt MRI T -spine fairly normal MRI C-spine as above MRI L-spine as above (4) RLS (restless legs syndrome): RLS/neuropathy -presented with involuntary movements, contractures and muscle stiffness of the lower extremities that is fairly acute-more consistent with myelopathy increased gabapentin and is improved now s/p cervical spine ACDF continue Requip Consulting neurology-appreciated Given muscle stiffness, checked CK and mildly elevated at 1000-mild rhabdomyolysis-gave IVFs NS x 1 L and now down to 400s With Fe deficiency-replace iron orally (5) UTI (urinary tract infection): related to BPH. finish out course of abx with Augmentin x14-day course, doing well in this regard. Possibly physiologic/inflammatory stress from UTI was what led to the flareup of his neurologic condition. Rashid catheter remains in place and will follow up with urology as an outpatient May have also had some neurogenic component to urinary retention? (6) BPH (benign prostatic hyperplasia): with significant LUTS leading to urinary retention and current infection. With significant prostamegaly on CT abdomen/pelvis Continue rashid drainage until seeing urology after discharge, outpt urology f/u to be arranged PSA normal at 2.17 (7) Lumbar stenosis: Consult orthopedic spine [id number] significant L2-3 right sided disc protrusion and compression--> plan for BÁRBARA as per ortho SPine Continue baclofen, pain control prn (8) Hyperreflexia: With 3+ reflexes throughout and 3 beats of clonus in bilateral ankles With contractures and stiffness throughout lower extremities Polyneuropathy - with cervical spine myelopathy Appreciate Neuro consult: with "progressive spastic weakness of both lower extremities with hyperreflexia and bilateral upgoing toes with associated sensory loss to all 4 limbs, notably affecting proprioception. Clinically, patient appears to have a chronic, progressive myeloneuropathy. His clinical presentation and examination findings are not suggestive of either acute or chronic inflammatory demyelinating polyneuropathy (does not look like GBS or CIDP). A hereditary spastic paraparesis is also possible although this group of disorders would not typically include significant polyneuropathy. Furthermore, no clear family history of HSP. Patient's brain MRI not suggestive of multiple sclerosis or demyelinating disease. Furthermore, no evidence of NPH or focal cerebellar atrophy. Again, would recommend MRI of the cervical and thoracic spine without contrast. Outpatient EMG of all 4 limbs. Methylmalonic acid level, copper level, ceruloplasmin, and RPR." now s/p cervical spine ACDF (9) Chronic diarrhea: continue Imodium and probiotics (10) COPD (chronic obstructive pulmonary disease): No acute issues, has some wheezing post-op and is being weaned off O2 Continue levalbuterol as needed and fluticasone inhaled (11) HLD (hyperlipidemia): Continue statin (12) B12 deficiency: B12 level is borderline low in the 350 range Started B12 1000 mcg IM daily x3 doses (13) CAD (coronary artery disease): asymptomatic, with h/o 2 stents placed in 2009 at [facility] in [place], [place] as above, periop risk is average Continue home atorvastatin, aspirin not on beta mercedes (14) DVT prophylaxis: lovenox SQ-placed on HOLD for surgery SCDs Disposition continued stay for recovery post-op Admission and Anticipated Discharge Date Admission Date: August 18, 2020 Subjective Pt had ACDF today and already feels the sensation coming back in his finger tips and also feels less tense in his hands. Still having flexion and spasticity in the knees and not able to straighten legs out without assistance. No throat or neck pain. Still with pain in hips R>L Denies CP or SOB but remains on 4LNC after surgery, RN weaning him down Review of Systems Review of Systems: All systems reviewed & are unremarkable except as noted in HPI & below Physical Exam Constitutional: WD/WN, vitals as above + obese Eyes: + anicteric sclerae Neck: + abnormal visual inspection (dressing on right c/d/i, no swelling of neck) Respiratory: normal respiratory effort Auscultation: + wheezes (bilat exp); no rales and no rhonchi Cardiovascular: RRR, no murmur, no edema Chest (Breasts): Chest: normal inspection of chest Gastrointestinal (Abdomen): normal bowel sounds, soft, nontender, no hepatosplenomegaly Musculoskeletal: Extremities: + extremities abnormal to inspection (flexed at knees,able to passively straighten out), no cyanosis and no clubbing Skin: no rashes, warm and dry Neurologic: moves all extremities and awake Motor/Sensory: no tremor Psychiatric: A+Ox3, euthymic affect Lymphatic: no lymphedema Results & Data Results & Data ([facility]) Vital Signs (Past 12 Hours) Vital Signs Temp Pulse Pulse Resp BP BP Pulse Ox 08/26/20 15:55 85 18 128/86 96 08/26/20 15:40 81 95 08/26/20 13:45 112 H 18 133/87 93 08/26/20 12:44 93 H 18 144/82 H 93 08/26/20 11:47 36.8 C 92 H 18 138/85 94 08/26/20 11:41 08/26/20 11:15 89 18 135/82 94 08/26/20 11:03 81 18 94 08/26/20 10:52 37.0 C 85 16 135/82 92 08/26/20 10:30 36.4 C L 91 H 20 142/87 H 93 08/26/20 10:20 90 12 143/80 H 93 08/26/20 10:10 85 14 141/92 H 94 08/26/20 10:00 83 18 147/89 H 92 08/26/20 09:50 88 16 142/93 H 92 08/26/20 09:40 92 H 15 155/90 H 97 08/26/20 09:30 84 14 131/95 97 08/26/20 09:22 36.0 C L 89 16 171/84 H 97 08/26/20 07:09 36.8 C 84 18 140/88 93 Pulse Ox 08/26/20 15:55 08/26/20 15:40 08/26/20 13:45 08/26/20 12:44 08/26/20 11:47 08/26/20 11:41 92 08/26/20 11:15 08/26/20 11:03 08/26/20 10:52 08/26/20 10:30 08/26/20 10:20 08/26/20 10:10 08/26/20 10:00 08/26/20 09:50 08/26/20 09:40 08/26/20 09:30 08/26/20 09:22 08/26/20 07:09 Laboratory Results 08/26/20 06:27 08/26/20 06:27 PG Care Time/CCT Total # of Minutes Spent Total Time Spent with Patient: Total time spent is greater than 50% in coordination of care (as documented) at patient's floor/unit and/or counseling patient: Coding Level of Care Code 12950 Subseq Hosp Care Lvl 2 Diagnoses Falls W19.XXXA Cervical stenosis of spine M48.02 Idiopathic polyneuropathy G60.9 RLS (restless legs syndrome) G25.81 UTI (urinary tract infection) N39.0 BPH (benign prostatic hyperplasia) N40.0 Lumbar stenosis M48.061 Hyperreflexia R29.2 Chronic diarrhea K52.9 COPD (chronic obstructive pulmonary disease) J44.9 HLD (hyperlipidemia) E78.5 B12 deficiency E53.8 CAD (coronary artery disease) I25.10 DVT prophylaxis Z29.9
[2020-08-26] MEDS: COUGH DROP (SUGAR FREE) LOZ 24 LOZ/1 BOX BUCCAL PRN (20:58)
[2020-08-26] MEDS: DOCUSATE SODIUM/SENNA 50/8.6MG TAB PO SCH (20:59)
[2020-08-26] MEDS: rOPINIRole HCL 1 MG TABLET PO SCH (20:59)
[2020-08-26] MEDS: TAMSULOSIN HCL 0.4 MG CAP PO SCH (21:00)
[2020-08-26] MEDS: LEVALBUTEROL TARTRATE 15 GM HFA.AER.AD INH PRN (21:14)
[2020-08-27] MEDS: LACTATED RINGER'S 1,000 ML IV SCH (01:25)
[2020-08-27] MEDS: oxyCODONE HCL IR 5 MG TAB (IMMEDIATE RELEASE) PO PRN ×4 (01:34→20:43)
[2020-08-27] MEDS: ACETAMINOPHEN 500 MG TAB PO PRN (03:52)
[2020-08-27] MEDS: dexAMETHasone 6 MG in SYRINGE 0 ML IV SCH (04:53)
[2020-08-27] MEDS: POLYETHYLENE (MIRALAX) 17 GM PACK PO SCH ×4 (05:32→23:47)
[2020-08-27 06:28] LABS: Eosinophils # (auto) 0.01 K/uL (0-0.5); Eosinophils % (auto) 0.1 %; Hematocrit (blood only) 31.9 % (42-52); Hemoglobin 10.4 g/dL (14.0-18.0); Immature Granulocytes # (auto) 0.03 K/uL (0.00-0.02); Immature Granulocytes % (auto) 0.3 %; Lymphocytes # (auto) 0.76 K/uL (1.2-3.4); Lymphocytes % (auto) 8.2 %; Mean Corpuscular Hgb Conc 32.6 g/dL (32-36); Mean Corpuscular Volume 98.2 fL (80-100); Mean Platelet Volume 9.4 fL (7.4-10.4); Monocytes # (auto) 0.29 K/uL (0.11-0.59); Monocytes % (auto) 3.1 %; Neutrophils # (auto) 8.19 K/uL (1.4-6.5); Neutrophils % (auto) 88.3 %; Platelet Count 255 K/uL (130-400); RDW Coefficient of Variation 12.6 % (11.5-14.5); RDW Standard Deviation 44.7 fL (36.4-46.3); Red Blood Count 3.25 M/uL (4.7-6.1); White Blood Count 9.28 K/uL (4.8-10.8)
[2020-08-27 07:07] LABS: BUN Creatinine Ratio 25.8 (10-20); Calcium 8.7 mg/dl (8.5-10.1); Creatinine Clr Calc Pharmacy 150.8 ml/min; Est GFR (African American) 116.7 ml/min; Est GFR (Non-African American) 100.7 ml/min; Potassium 4.1 mmol/L (3.5-5.1)
[2020-08-27] MEDS: AMOXICILLIN/CLAVULANATE 875 MG TAB PO SCH ×2 (07:12→17:32)
[2020-08-27] MEDS: BACLOFEN 20 MG TAB PO SCH (07:12)
[2020-08-27] MEDS: FERROUS GLUCONATE 324 MG TAB PO SCH ×2 (07:12→17:32)
[2020-08-27] MEDS: ADVANCED PROBIOTIC 1250 MG CAPSULE PO SCH ×3 (07:13→20:02)
[2020-08-27] MEDS: GABAPENTIN 600 MG TAB PO SCH (07:13)
[2020-08-27] MEDS: FLUTICASONE FUROATE 200MCG 14 PUFFS/INHALER INH SCH (07:13)
[2020-08-27] MEDS: ATORVASTATIN 40 MG TAB PO SCH (07:58)
[2020-08-27] MEDS: FLUoxetine HCL 20 MG CAP PO SCH (07:58)
[2020-08-27] MEDS: COUGH DROP (SUGAR FREE) LOZ 24 LOZ/1 BOX BUCCAL PRN (07:59)
[2020-08-27] MEDS: ASPIRIN 81 MG CHEW PO SCH (07:59)
[2020-08-27 08:07] LABS: Ceruloplasmin 34 mg/dL (18-36); Copper, Serum 110 mcg/dL (70-175); Methylmalonic Acid 191 nmol/L (87-318)
--- NOTE | 2020-08-27 09:13 | Orthopedic Progress Note ---
Date of Service August 27, 2020 Assessment & Plan (1) Cervical stenosis of spine: Admission and Anticipated Discharge Date Admission Date: August 18, 2020 At this time we will maintain the CASSIE drain till Sunday morning. I am going to request interventional pain management to assess the patient for possible trial of epidural injections. Subjective Arm symptoms are improved. He is swallowing well. No hoarseness. Pain well controlled. Still struggling with leg pain consistent with his lumbar spinal disease Physical Exam Physical Exam: On exam the patient is alert and oriented. Is good strength testing upper extremities. Dressings in place drain is functioning. Results & Data ([facility]) Vital Signs (Past 12 Hours) Vital Signs Temp Pulse Resp BP Pulse Ox 08/27/20 07:49 69 14 96 08/27/20 07:30 36.5 C 76 16 143/79 H 92 08/27/20 05:00 77 18 96 08/27/20 04:56 36.6 C 77 16 148/90 H 93 08/27/20 03:03 36.3 C L 79 16 153/94 H 94 08/27/20 01:28 36.7 C 08/27/20 01:26 90 20 132/81 94 08/26/20 23:34 92 H 20 94 08/26/20 23:18 36.9 C 91 H 20 137/77 93 08/26/20 21:23 36.5 C 91 H 18 143/78 H 93 08/26/20 21:18 85 18 93
[2020-08-27] MEDS: LEVALBUTEROL TARTRATE 15 GM HFA.AER.AD INH PRN (09:53)
--- NOTE | 2020-08-27 13:09 | Pain Management Consultation ---
Date of Consultation August 27, 2020 Assessment & Plan (1) Cervical stenosis of spine: Patient's pain is pretty well controlled with the current regimen. We have discussed increasing the nighttime dose of Gabapentin to 800mg for possibly increased pain relief of the right leg pain that may be attributed to the L3-4 disc extrusion. We are unable to perform an epidural injection to the lumbar region given the recent cervical spine surgery for at least 6 weeks to allow for healing. Patient is understanding of this. He is very pleased with the improvement in the weakness and numbness of the arms and legs he is looking forward to physical therapy to further improve. After 6 weeks of healing time, we could then consider a lumbar epidural injection. Thank you for the consultation. History of Present Illness Attending Physician: Zita Keane MD History of Present Illness Mr. Nichole is a 65 year old prisoner that was found to have cervical stenosis at C3-4 with resultant myelomalacia. He was experiencing significant numbness and weakness into his arms and legs. He has had an extensive workup and once the severe stenosis causing myelomalacia was found he received a C3-C4 fusion. Patient is 1 day postop and is already reporting 40% improvement of the left arm strength, 20% improvement in right arm strength, and mild improvement in the lower legs. He does continue to experience low back pain with sharp jolts down the right anterior thigh. The radicular pain is typically aggravated when going from sitting to standing position and resolves in a few seconds. He is currently utilizing baclofen 20 mg twice daily, ropinirole 1 mg at bedtime, gabapentin 600 mg twice daily, oxycodone 5 to 10 mg every 4 hours if needed, and IV Dilaudid 1 mg as needed breakthrough pain. Patient states that his pain has been well managed with the current regimen. Pain Assessment Full Body Front + Back: 1. 2. Allergies Allergy/AdvReac Type Severity Reaction Status Date / Time gemfibrozil [From Lopid] Allergy Unknown Unverified 08/18/20 15:16 Home Medications Medication Instructions Recorded Confirmed Type acetaminophen 1,000 mg PO TID PRN 08/18/20 08/18/20 History acidophilus-pectin, citrus 1 cap PO TID 08/18/20 08/18/20 History [Acidophilus Probiotic] aspirin 81 mg PO DAILY 08/18/20 08/18/20 History atorvastatin 40 mg PO DAILY 08/18/20 08/18/20 History baclofen 20 mg PO BID 08/18/20 08/18/20 History ciclesonide [Alvesco] 1 puff INHALATION BID 08/18/20 08/18/20 History diclofenac sodium 50 mg PO TID 08/18/20 08/18/20 History fluoxetine 80 mg PO DAILY 08/18/20 08/18/20 History levalbuterol tartrate [Xopenex HFA] 2 inh INHALATION Q6H PRN 08/18/20 08/18/20 History loperamide [Imodium A-D] 2 mg PO QID PRN 08/18/20 08/18/20 History oxcarbazepine [Trileptal] 150 mg PO BID 08/18/20 08/18/20 History ropinirole 1 mg PO HS 08/18/20 08/18/20 History Patient History Medical History Anemia B12 deficiency CAD (coronary artery disease) Cervical stenosis of spine Chronic diarrhea HLD (hyperlipidemia) Idiopathic polyneuropathy Lumbar stenosis Obesity Seizure disorder last one 12 years ago Surgical History H/O toe surgery History of carpal tunnel release of both wrists Stented coronary artery Family History Mother Diabetes Father Coronary heart disease Diabetes Myocardial infarction Social History Smoking Status: Former smoker Tobacco Type: Cigarettes Hx Alcohol Use: Yes Alcohol type: beer and hard liquor Preferred Language: Ukrainian Current Living Situation: Other Current Living Situation Comment: [facility] Other Information That Helps Us Care for You: No Feels Safe at Home: Yes Assistive Devices: Walker Physical Exam Physical Exam: GENERAL: This is a 65 year old male that is accompanied by two guards. Does not appear in any acute distress. HEAD/FACE: Normocephalic and atraumatic. EYES: No drainage or conjunctival injection. ENT: Nose without bleeding or discharge. Oral mucosa moist. NECK: + collar in place. RESPIRATORY: Patient with unlabored breathing. No signs of respiratory distress. CHEST/AXILLA: Chest movement symmetrical. No deformities noted. BACK: Able to bend forward with little difficulty. There is mild lumbosacral tenderness. No myofascial spasm noted. SKIN: [place], warm and dry. No rash noted. MS/EXTREMITY: There is intermittent spasm noted in the left arm. 4/5 strength of left arm. 3/5 strength of right arm. 4/5 strength of legs. Equivocal straight leg raise. NEURO: Alert and appears oriented. Speech is fluent. Cranial Nerves are grossly intact. PSYCH: Alert, pleasant, affect is calm Results (Pain [facility]) Diagnostic Review MRI Findings: MR cervical spine wo con CLINICAL HISTORY: myelopathy TECHNIQUE: Sagittal and axial T1, T2 and STIR images were obtained. COMPARISON STUDY: No previous studies for comparison. This is limited exam due to motion artifact most affecting sagittal T1 and T2 fat-suppressed and axial sequence. No acute fracture or dislocation seen. No definite bone marrow lesions are seen. There is loss of normal cervical lordosis and multilevel degenerative changes of the spine. C2-3: Intervertebral disc space narrowing with disc desiccation and left paracentral bulge of the disc causing mild stenosis of the central canal. Moderate stenosis of bilateral neural foramina is seen at this level. C3-4: Intervertebral disc space narrowing with disc desiccation and posterior osteophytes. Severe stenosis of the central canal and bilateral neuroforamina are seen at this level. There is increase T2 signal within cord slightly distally to C3-C4 disc space level, seen on lateral view only and not appreciated on axial sequence which significantly limited by motion artifact. C4-5: Intervertebral disc space narrowing and disc desiccation. Diffuse bulge of the disc is seen causing flattening of thecal sac. Moderate stenosis of bilateral neuroforamina are seen at this level. C5-6 :Intervertebral disc space narrowing and disc desiccation. Mild narrowing of the central canal and left neuroforamina. Moderate stenosis of the right neuroforamina. C6-7: Intervertebral disc space narrowing with disc desiccation and osteophytes. Mild diffuse bulge of the disc is seen causing flattening of thecal sac. Stenosis of bilateral neuroforamina are seen at this level. C7-T1: Intervertebral disc spaces preserved. Disc desiccation is seen. Central canal is patent. Mild narrowing of bilateral neuroforamina are seen at this level. IMPRESSION: 1. Multilevel degenerative changes of the spine. Severe stenosis at C3-C4 level associated with increase T2 signal within the cord which could represent myelopathy. Evaluation is limited due to motion artifact. ACT 112: Positive. There are findings on this exam that require communication between the performing entity and the patient following Patient Test Result Information Act ([place] Act 112) guidelines. The above report was generated using voice recognition software. It may contain grammatical, syntax or spelling errors. Electronically signed by: Hyacinth Gale DO 08/25/2020 9:07 AM LUMBAR SPINE MRI WITH AND WITHOUT CONTRAST HISTORY: paresthesiae, leg spasms, ?demyelination TECHNIQUE: Multiplanar multisequence MRI of the lumbar spine was performed both before and after the intravenous administration of contrast. COMPARISON: Lumbar spine CT 08/18/2020. FINDINGS: For the purpose of the report the L5-S1 disc space will be located on axial image 23 of 25. Suboptimal evaluation due to the mild motion artifact. No fracture or subluxation. Mild disc space narrowing at T11-T12. The conus terminates at the L1-L2 disc space level. Paravertebral soft tissues are unremarkable. Mild disc space narrowing at L2-L3 and L3-L4. There is severe disc space narrowing at L4-5 and L5-S1 with endplate osteophytes. Mild facet degenerative changes within the lower lumbar spine. No definite abnormal enhancement within the lumbar spine. The cauda equina appears intact. Endplate edema at L4-5 is likely due to long- standing degenerative change. L1-L2: No significant central canal or neural foraminal narrowing. L2-L3: There is a small broad-based posterior disc bulge with a right paracentral/foraminal disc extrusion demonstrating inferior subligamentous migration. This measures approximately 11 x 7 x 6 mm and compresses the transiting right L3 nerve root. There is mild central canal narrowing and mild right-sided neural foraminal narrowing. L3-L4: Broad-based posterior disc bulge with ligamentum and facet hypertrophy resulting in mild central canal and mild bilateral neural foraminal narrowing. L4-L5: Broad-based posterior disc bulge asymmetric to the right with ligamentum and facet hypertrophy. This results in moderate central canal and moderate bilateral neural foraminal narrowing. L5-S1: Small broad-based posterior disc osteophyte complex without significant central canal narrowing. There is moderate bilateral neural foraminal narrowing. IMPRESSION: 1. A right-sided paracentral/foraminal disc extrusion at L2-L3 demonstrating inferior subligamentous migration. This compresses the transiting right L3 nerve root. 2. Additional degenerative changes as described above most pronounced at the L4- 5 level which demonstrates moderate central canal and moderate bilateral neural foraminal narrowing. 3. No fracture or subluxation. ACT 112: Negative or not required by law. Electronically signed by: Javier Tam M.D. 08/23/2020 9:09 AM Radiology Findings: FL cervical 2-3V CLINICAL HISTORY: C3-C4 ACDF COMPARISON STUDY: Cervical spine CT August 18, 2020. Cervical spine MRI August 25, 2020. FLUOROSCOPY TIME: 11 seconds. FLUOROSCOPIC IMAGES: 2 FINDINGS: Fluoroscopy was provided during the C3-C4 anterior discectomy and fusi on. Interbody spacer is noted. Sponge markers on the first image are not present on the final image obtained at 9:10 AM. Surgical drain is in place. IMPRESSION: Fluoroscopy provided during C3-C4 anterior discectomy fusion. ACT 112: Negative or not required by law. Electronically signed by: Raheel Chaidez M.D. 08/26/2020 10:05 AM
--- NOTE | 2020-08-27 15:53 | Hospitalist Progress Note ---
Date of Service August 27, 2020 Assessment & Plan (1) Falls: Presents with numerous falls and a history of idiopathic polyneuropathy based on EMG of the left upper and left lower extremity in 07/2019 With paresthesias in all 4 extremities, hyperreflexia, spasticity in LEs, chronic neck and lower back pain CT cervical spine with significant facet arthritis, lumbar MRI with spinal stenosis and HNP at L2-L3 causing severe impingement on L3 nerve root C-spine MRI also with severe stenosis at C3-4 with increased cord signal indicative of myelopathy--> this accounts for all his symptoms MRI brain is normal PT/OT consultations appreciated Consult neurology and orthopedic spine surgery as below Now s/p ACDF on 08/[address] Cruz Improving all around with all myelopathy -continue pain control -bowel regimen-he is refusing this -post-op care as per Ortho (2) Cervical stenosis of spine: As above Consult orthopedic spine surgeon appreciated (3) Idiopathic polyneuropathy: see above Restarted on gabapentin-increased dose at bedtime as per Pain Man Consulting neurology-recommends B12, methylmalonic acid, copper level, ceruloplasmin, and RPR--> all negative; also needs EMG all four extremities as outpt MRI T -spine fairly normal MRI C-spine as above MRI L-spine as above (4) RLS (restless legs syndrome): RLS/neuropathy -presented with involuntary movements, contractures and muscle stiffness of the lower extremities that is fairly acute-more consistent with myelopathy increased gabapentin again now s/p cervical spine ACDF continue Requip Consulting neurology-appreciated Given muscle stiffness, checked CK and mildly elevated at 1000-mild rhabdomyolysis-gave IVFs NS x 1 L and now down to 400s With Fe deficiency-replace iron orally (5) UTI (urinary tract infection): related to BPH. finish out course of abx with Augmentin x14-day course, doing well in this regard. Possibly physiologic/inflammatory stress from UTI was what led to the flareup of his neurologic condition. Rashid catheter remains in place and will follow up with urology as an outpatient May have also had some neurogenic component to urinary retention? (6) BPH (benign prostatic hyperplasia): with significant LUTS leading to urinary retention and current infection. With significant prostamegaly on CT abdomen/pelvis Continue rashid drainage until seeing urology after discharge, outpt urology f/u to be arranged PSA normal at 2.17 (7) Lumbar stenosis: Consult orthopedic spine [id number] significant L2-3 right sided disc protrusion and compression--> plan for BÁRBARA as per ortho SPine Continue baclofen but he asks for it to be prn -continue pain control prn -Pain Management consult appreciated--> plan for BÁRBARA in 6 weeks (8) Hyperreflexia: With 3+ reflexes throughout and 3 beats of clonus in bilateral ankles With contractures and stiffness throughout lower extremities Polyneuropathy - with cervical spine myelopathy Appreciate Neuro consult: with "progressive spastic weakness of both lower extremities with hyperreflexia and bilateral upgoing toes with associated sensory loss to all 4 limbs, notably affecting proprioception. Clinically, patient appears to have a chronic, progressive myeloneuropathy. His clinical presentation and examination findings are not suggestive of either acute or chronic inflammatory demyelinating polyneuropathy (does not look like GBS or CIDP). A hereditary spastic paraparesis is also possible although this group of disorders would not typically include significant polyneuropathy. Furthermore, no clear family history of HSP. Patient's brain MRI not suggestive of multiple sclerosis or demyelinating disease. Furthermore, no evidence of NPH or focal cerebellar atrophy. Again, would recommend MRI of the cervical and thoracic spine without contrast. Outpatient EMG of all 4 limbs. Methylmalonic acid level, copper level, ceruloplasmin, and RPR." now s/p cervical spine ACDF (9) Chronic diarrhea: continue Imodium prn and probiotics although now he is constipated (10) COPD (chronic obstructive pulmonary disease): No acute issues, had some wheezing post-op and is now weaned off O2 Continue levalbuterol as needed and fluticasone inhaled (11) HLD (hyperlipidemia): Continue statin (12) B12 deficiency: B12 level is borderline low in the 350 range Started B12 1000 mcg IM daily x3 doses MMA is normal (13) CAD (coronary artery disease): asymptomatic, with h/o 2 stents placed in 2009 at [facility] in [facility] [place] as above, periop risk is average Continue home atorvastatin, aspirin not on beta mercedes (14) DVT prophylaxis: lovenox SQ-placed on HOLD for surgery SCDs Disposition continued stay for recovery post-op Admission and Anticipated Discharge Date Admission Date: August 18, 2020 Subjective Improving daily. Is able to straighten legs out today. Reports increase in sensation in his fingers to 40% today from 10%. Pain improved into RLE Seen by Pain Management No BM in over 2 days and has been refusing Miralax for fear of diarrhea. No nausea Is weane doff O2 Denies CP or SOB Has some pain in neck Review of Systems Review of Systems: All systems reviewed & are unremarkable except as noted in HPI & below Physical Exam Constitutional: WD/WN, vitals as above + obese Eyes: + anicteric sclerae Neck: + abnormal visual inspection ([place] colar in place) Respiratory: normal respiratory effort, lungs clear to auscultation Cardiovascular: RRR, no murmur, no edema Chest (Breasts): Chest: normal inspection of chest Gastrointestinal (Abdomen): normal bowel sounds, soft, nontender, no hepatosplenomegaly Musculoskeletal: Extremities: extremities normal to inspection (leg now straight); no cyanosis and no clubbing Skin: no rashes, warm and dry Neurologic: moves all extremities and awake Motor/Sensory: no tremor Psychiatric: A+Ox3, euthymic affect Lymphatic: no lymphedema Results & Data Results & Data ([facility]) Vital Signs (Past 12 Hours) Vital Signs Temp Pulse Resp BP Pulse Ox 08/27/20 15:19 36.7 C 72 18 126/81 91 08/27/20 10:00 84 16 92 08/27/20 09:59 36.6 C 90 16 127/75 94 08/27/20 09:54 87 16 94 08/27/20 07:49 69 14 96 08/27/20 07:30 36.5 C 76 16 143/79 H 92 08/27/20 05:00 77 18 96 08/27/20 04:56 36.6 C 77 16 148/90 H 93 Laboratory Results 08/27/20 08/27/20 08/27/20 Range/Units 06:03 06:03 05:59 WBC 9.28 (4.8-10.8) K/uL RBC 3.25 L (4.7-6.1) M/uL Hgb 10.4 L (14.0-18.0) g/dL Hct 31.9 L (42-52) % MCV 98.2 (80-100) fL MCH 32.0 (25-34) pg MCHC 32.6 (32-36) g/dL RDW Std Deviation 44.7 (36.4-46.3) fL RDW Coeff of Dinesh 12.6 (11.5-14.5) % Plt Count 255 (130-400) K/uL MPV 9.4 (7.4-10.4) fL Immature Gran % (Auto) 0.3 % Neut % (Auto) 88.3 % Lymph % (Auto) 8.2 % [place]rack[place] % (Auto) 3.1 % Eos % (Auto) 0.1 % Baso % (Auto) 0.0 % Neut # (Auto) 8.19 H (1.4-6.5) K/uL Lymph # (Auto) 0.76 L (1.2-3.4) K/uL [place] # (Auto) 0.29 (0.11-0.59) K/uL Eos # (Auto) 0.01 (0-0.5) K/uL Baso # (Auto) 0.00 (0-0.2) K/uL Immature Gran # (Auto) 0.03 H (0.00-0.02) K/uL Sodium 138 (136-145) mmol/L Potassium 4.1 D (3.5-5.1) mmol/L Chloride 102 (98-107) mmol/L Carbon Dioxide 29 (21-32) mmol/L Anion Gap 7.0 (3-11) BUN 17 (7-18) mg/dl Creatinine 0.65 (0.6-1.4) mg/dl Est Cr Clr Drug Dosing 150.8 ml/min Est GFR ( Amer) 116.7 ml/min Est GFR (Non-Af Amer) 100.7 ml/min BUN/Creatinine Ratio 25.8 H (10-20) Glucose 126 H (70-99) mg/dl POC Glucose 131 H (70-99) mg/dl Calcium 8.7 (8.5-10.1) mg/dl Ceruloplasmin (18-36) mg/dL Methylmalonic Acid (87-318) nmol/L Serum Copper (70-175) mcg/dL 08/26/20 08/26/20 08/24/20 Range/Units 23:59 18:00 17:13 WBC (4.8-10.8) K/uL RBC (4.7-6.1) M/uL Hgb (14.0-18.0) g/dL Hct (42-52) % MCV (80-100) fL MCH (25-34) pg MCHC (32-36) g/dL RDW Std Deviation (36.4-46.3) fL RDW Coeff of Dinesh (11.5-14.5) % Plt Count (130-400) K/uL MPV (7.4-10.4) fL Immature Gran % (Auto) % Neut % (Auto) % Lymph % (Auto) % [place] % (Auto) % Eos % (Auto) % Baso % (Auto) % Neut # (Auto) (1.4-6.5) K/uL Lymph # (Auto) (1.2-3.4) K/uL [place] # (Auto) (0.11-0.59) K/uL Eos # (Auto) (0-0.5) K/uL Baso # (Auto) (0-0.2) K/uL Immature Gran # (Auto) (0.00-0.02) K/uL Sodium (136-145) mmol/L Potassium (3.5-5.1) mmol/L Chloride (98-107) mmol/L Carbon Dioxide (21-32) mmol/L Anion Gap (3-11) BUN (7-18) mg/dl Creatinine (0.6-1.4) mg/dl Est Cr Clr Drug Dosing ml/min Est GFR ( Amer) ml/min Est GFR (Non-Af Amer) ml/min BUN/Creatinine Ratio (10-20) Glucose (70-99) mg/dl POC Glucose 147 H 156 H (70-99) mg/dl Calcium (8.5-10.1) mg/dl Ceruloplasmin 34 (18-36) mg/dL Methylmalonic Acid 191 (87-318) nmol/L Serum Copper 110 (70-175) mcg/dL PG Care Time/CCT Total # of Minutes Spent Total Time Spent with Patient: Total time spent is greater than 50% in coordination of care (as documented) at patient's floor/unit and/or counseling patient: Coding Level of Care Code 70180 Subseq Hosp Care Lvl 2 Diagnoses Falls W19.XXXA Cervical stenosis of spine M48.02 Idiopathic polyneuropathy G60.9 RLS (restless legs syndrome) G25.81 UTI (urinary tract infection) N39.0 BPH (benign prostatic hyperplasia) N40.0 Lumbar stenosis M48.061 Hyperreflexia R29.2 Chronic diarrhea K52.9 COPD (chronic obstructive pulmonary disease) J44.9 HLD (hyperlipidemia) E78.5 B12 deficiency E53.8 CAD (coronary artery disease) I25.10 DVT prophylaxis Z29.9
[2020-08-27] MEDS ORDERED: BACLOFEN 20 MG TAB PO PRN (15:55)
[2020-08-27] MEDS: DOCUSATE SODIUM/SENNA 50/8.6MG TAB PO SCH (20:00)
[2020-08-27] MEDS: rOPINIRole HCL 1 MG TABLET PO SCH (20:02)
[2020-08-27] MEDS: TAMSULOSIN HCL 0.4 MG CAP PO SCH (20:02)
[2020-08-27] MEDS: GABAPENTIN 800 MG TAB PO SCH (20:39)
[2020-08-28] MEDS: POLYETHYLENE (MIRALAX) 17 GM PACK PO SCH ×4 (05:41→22:11)
[2020-08-28] MEDS: oxyCODONE HCL IR 5 MG TAB (IMMEDIATE RELEASE) PO PRN ×4 (07:55→22:14)
[2020-08-28] MEDS: FERROUS GLUCONATE 324 MG TAB PO SCH ×2 (07:56→17:22)
[2020-08-28] MEDS: ASPIRIN 81 MG CHEW PO SCH (07:57)
[2020-08-28] MEDS: ADVANCED PROBIOTIC 1250 MG CAPSULE PO SCH ×3 (07:57→22:10)
[2020-08-28] MEDS: FLUoxetine HCL 20 MG CAP PO SCH (07:57)
[2020-08-28] MEDS: AMOXICILLIN/CLAVULANATE 875 MG TAB PO SCH ×2 (07:57→17:23)
[2020-08-28] MEDS: ATORVASTATIN 40 MG TAB PO SCH (07:58)
[2020-08-28] MEDS: FLUTICASONE FUROATE 200MCG 14 PUFFS/INHALER INH SCH (07:58)
[2020-08-28] MEDS: GABAPENTIN 600 MG TAB PO SCH (07:58)
--- NOTE | 2020-08-28 08:32 | Orthopedic Progress Note ---
Date of Service August 28, 2020 Assessment & Plan (1) Cervical stenosis of spine: Admission and Anticipated Discharge Date Admission Date: August 18, 2020 We will change the dressing today discontinue the drain today. Patient may shower today continue with occupational physical therapy. Subjective Patient feels his arm symptoms are steadily improving. He still markedly limited with ambulation. Physical Exam Physical Exam: On exam his strength is intact the upper extremities. Appears comfortable. Results & Data ([facility]) Vital Signs (Past 12 Hours) Vital Signs Temp Pulse Resp BP Pulse Ox 08/28/20 07:30 36.4 C L 84 16 131/74 95 08/28/20 07:10 80 18 93 08/28/20 03:39 75 20 95 08/28/20 03:26 37.0 C 73 20 116/74 94 08/27/20 23:43 36.9 C 79 22 115/65 94 08/27/20 23:00 80 18 93
[2020-08-28] MEDS ORDERED: bisacodyL 10 MG SUPP PR PRN (09:07)
--- NOTE | 2020-08-28 12:38 | Hospitalist Progress Note ---
Date of Service August 28, 2020 Assessment & Plan (1) Falls: Presents with numerous falls and a history of idiopathic polyneuropathy based on EMG of the left upper and left lower extremity in 07/2019 With paresthesias in all 4 extremities, hyperreflexia, spasticity in LEs, chronic neck and lower back pain CT cervical spine with significant facet arthritis, lumbar MRI with spinal stenosis and HNP at L2-L3 causing severe impingement on L3 nerve root C-spine MRI also with severe stenosis at C3-4 with increased cord signal indicative of myelopathy--> this accounts for all his symptoms MRI brain is normal PT/OT consultations appreciated Consult neurology and orthopedic spine surgery as below Now s/p ACDF on 08/[address] Cruz Improving all around with all myelopathy -continue pain control -bowel regimen-no BM now in 3 days but feels it will happen today -post-op care as per Ortho -drain removed continue PT/OT (2) Cervical stenosis of spine: As above Consult orthopedic spine surgeon appreciated (3) Idiopathic polyneuropathy: see above Restarted on gabapentin-increased dose at bedtime as per Pain Man Consulting neurology-recommends B12, methylmalonic acid, copper level, ceruloplasmin, and RPR--> all negative; also needs EMG all four extremities as outpt MRI T -spine fairly normal MRI C-spine as above MRI L-spine as above (4) RLS (restless legs syndrome): RLS/neuropathy -presented with involuntary movements, contractures and muscle stiffness of the lower extremities that is fairly acute-more consistent with myelopathy increased gabapentin again now s/p cervical spine ACDF continue Requip Consulting neurology-appreciated Given muscle stiffness, checked CK and mildly elevated at 1000-mild rhabdomyolysis-gave IVFs NS x 1 L and now down to 400s With Fe deficiency-replace iron orally -continue baclofen 20 bid (5) UTI (urinary tract infection): related to BPH. finish out course of abx with Augmentin x14-day course, doing well in this regard. Possibly physiologic/inflammatory stress from UTI was what led to the flareup of his neurologic condition. Rashid catheter remains in place and will follow up with urology as an outpatient May have also had some neurogenic component to urinary retention? (6) BPH (benign prostatic hyperplasia): with significant LUTS leading to urinary retention and current infection. With significant prostamegaly on CT abdomen/pelvis Continue rashid drainage until seeing urology after discharge, outpt urology f/u to be arranged PSA normal at 2.17 (7) Lumbar stenosis: Consult orthopedic spine [id number] significant L2-3 right sided disc protrusion and compression--> plan for BÁRBARA as per ortho SPine Continue baclofen and make scheduled again today due to worsening LLE spasms with making it prn -continue pain control prn -Pain Management consult appreciated--> plan for BÁRBARA in 6 weeks once recovered from ACDF (8) Hyperreflexia: With 3+ reflexes throughout and 3 beats of clonus in bilateral ankles With contractures and stiffness throughout lower extremities Polyneuropathy - with cervical spine myelopathy Appreciate Neuro consult: with "progressive spastic weakness of both lower extremities with hyperreflexia and bilateral upgoing toes with associated sensory loss to all 4 limbs, notably affecting proprioception. Clinically, patient appears to have a chronic, progressive myeloneuropathy. His clinical presentation and examination findings are not suggestive of either acute or chronic inflammatory demyelinating polyneuropathy (does not look like GBS or CIDP). A hereditary spastic paraparesis is also possible although this group of disorders would not typically include significant polyneuropathy. Furthermore, no clear family history of HSP. Patient's brain MRI not suggestive of multiple sclerosis or demyelinating disease. Furthermore, no evidence of NPH or focal cerebellar atrophy. Again, would recommend MRI of the cervical and thoracic spine without contrast. Outpatient EMG of all 4 limbs. Methylmalonic acid level, copper level, ceruloplasmin, and RPR." now s/p cervical spine ACDF (9) Chronic diarrhea: continue Imodium prn and probiotics although now he is constipated (10) COPD (chronic obstructive pulmonary disease): No acute issues, had some wheezing post-op and is now weaned off O2 Continue levalbuterol as needed and fluticasone inhaled (11) HLD (hyperlipidemia): Continue statin (12) B12 deficiency: B12 level is borderline low in the 350 range Started B12 1000 mcg IM daily x3 doses MMA is normal (13) CAD (coronary artery disease): asymptomatic, with h/o 2 stents placed in 2009 at [facility] in [place], [place] as above, periop risk is average Continue home atorvastatin, aspirin not on beta mercedes (14) DVT prophylaxis: lovenox SQ-placed on HOLD for surgery SCDs Disposition continued stay for recovery post-op Admission and Anticipated Discharge Date Admission Date: August 18, 2020 Subjective Reports had increased stiffness and spasms in LLE and would like baclofen to go back to being scheduled. Denies SOB or CP. Still with right groin and thigh pain. Some mild neck pain. Had drain removed from neck. Feels even more sensation and strength back in hands today. Is eating a lot, drinking, making urine. No BM in several days Review of Systems Review of Systems: All systems reviewed & are unremarkable except as noted in HPI & below Physical Exam Constitutional: WD/WN, vitals as above + obese Eyes: + anicteric sclerae Neck: trachea midline, no thyromegaly + abnormal visual inspection (collar removed, dresing in plae c/d/i, no drain) Respiratory: normal respiratory effort, lungs clear to auscultation Cardiovascular: RRR, no murmur, no edema Chest (Breasts): Chest: normal inspection of chest Gastrointestinal (Abdomen): normal bowel sounds, soft, nontender, no h epatosplenomegaly Musculoskeletal: Extremities: extremities normal to inspection (leg now straight); no cyanosis and no clubbing Skin: no rashes, warm and dry Neurologic: moves all extremities and awake Motor/Sensory: no tremor Psychiatric: A+Ox3, euthymic affect Lymphatic: no lymphedema Results & Data Results & Data ([facility] [place]) Vital Signs (Past 12 Hours) Vital Signs Temp Pulse Resp BP Pulse Ox 08/28/20 11:06 90 16 89 L 08/28/20 07:30 36.4 C L 84 16 131/74 95 08/28/20 07:10 80 18 93 08/28/20 03:39 75 20 95 08/28/20 03:26 37.0 C 73 20 116/74 94 PG Care Time/CCT Total # of Minutes Spent Total Time Spent with Patient: Total time spent is greater than 50% in coordination of care (as documented) at patient's floor/unit and/or counseling patient: Coding Level of Care Code 10249 Subseq Hosp Care Lvl 2 Diagnoses Falls W19.XXXA Cervical stenosis of spine M48.02 Idiopathic polyneuropathy G60.9 RLS (restless legs syndrome) G25.81 UTI (urinary tract infection) N39.0 BPH (benign prostatic hyperplasia) N40.0 Lumbar stenosis M48.061 Hyperreflexia R29.2 Chronic diarrhea K52.9 COPD (chronic obstructive pulmonary disease) J44.9 HLD (hyperlipidemia) E78.5 B12 deficiency E53.8 CAD (coronary artery disease) I25.10 DVT prophylaxis Z29.9
[2020-08-28] MEDS: traMADol HCL 50 MG TABLET PO PRN (15:50)
[2020-08-28] MEDS: COUGH DROP (SUGAR FREE) LOZ 24 LOZ/1 BOX BUCCAL PRN (17:21)
[2020-08-28] MEDS: TAMSULOSIN HCL 0.4 MG CAP PO SCH (22:07)
[2020-08-28] MEDS: rOPINIRole HCL 1 MG TABLET PO SCH (22:07)
[2020-08-28] MEDS: BACLOFEN 20 MG TAB PO SCH (22:08)
[2020-08-28] MEDS: DOCUSATE SODIUM/SENNA 50/8.6MG TAB PO SCH (22:09)
[2020-08-28] MEDS: GABAPENTIN 800 MG TAB PO SCH (22:09)
[2020-08-29 05:43] LABS: Basophils # (auto) 0.02 K/uL (0-0.2); Basophils % (auto) 0.2 %; Eosinophils # (auto) 0.08 K/uL (0-0.5); Hematocrit (blood only) 32.1 % (42-52); Hemoglobin 10.4 g/dL (14.0-18.0); Immature Granulocytes # (auto) 0.01 K/uL (0.00-0.02); Immature Granulocytes % (auto) 0.1 %; Lymphocytes # (auto) 0.96 K/uL (1.2-3.4); Lymphocytes % (auto) 11.8 %; Mean Corpuscular Hemoglobin 32.1 pg (25-34); Mean Corpuscular Hgb Conc 32.4 g/dL (32-36); Mean Corpuscular Volume 99.1 fL (80-100); Monocytes # (auto) 0.68 K/uL (0.11-0.59); Monocytes % (auto) 8.3 %; Neutrophils # (auto) 6.42 K/uL (1.4-6.5); Neutrophils % (auto) 78.6 %; Platelet Count 241 K/uL (130-400); RDW Coefficient of Variation 12.8 % (11.5-14.5); Red Blood Count 3.24 M/uL (4.7-6.1); White Blood Count 8.17 K/uL (4.8-10.8)
[2020-08-29 06:09] LABS: BUN Creatinine Ratio 28.5 (10-20); Calcium 8.2 mg/dl (8.5-10.1); Creatinine Clr Calc Pharmacy 140.1 ml/min; Est GFR (African American) 113.2 ml/min; Est GFR (Non-African American) 97.7 ml/min; Potassium 3.7 mmol/L (3.5-5.1)
[2020-08-29] MEDS: POLYETHYLENE (MIRALAX) 17 GM PACK PO SCH ×3 (06:31→16:35)
[2020-08-29] MEDS: oxyCODONE HCL IR 5 MG TAB (IMMEDIATE RELEASE) PO PRN ×2 (07:44→14:29)
[2020-08-29] MEDS: BACLOFEN 20 MG TAB PO SCH ×2 (07:47→20:00)
[2020-08-29] MEDS: GABAPENTIN 600 MG TAB PO SCH (07:47)
[2020-08-29] MEDS: ADVANCED PROBIOTIC 1250 MG CAPSULE PO SCH ×3 (07:47→20:01)
[2020-08-29] MEDS: ATORVASTATIN 40 MG TAB PO SCH (07:48)
[2020-08-29] MEDS: FERROUS GLUCONATE 324 MG TAB PO SCH ×2 (07:50→16:35)
[2020-08-29] MEDS: AMOXICILLIN/CLAVULANATE 875 MG TAB PO SCH ×2 (07:51→16:36)
[2020-08-29] MEDS: ASPIRIN 81 MG CHEW PO SCH (07:51)
[2020-08-29] MEDS: FLUoxetine HCL 20 MG CAP PO SCH (07:52)
[2020-08-29] MEDS: FLUTICASONE FUROATE 200MCG 14 PUFFS/INHALER INH SCH (07:52)
--- NOTE | 2020-08-29 17:20 | Hospitalist Progress Note ---
Date of Service August 29, 2020 Assessment & Plan (1) Falls: Presents with numerous falls and a history of idiopathic polyneuropathy based on EMG of the left upper and left lower extremity in 07/2019 With paresthesias in all 4 extremities, hyperreflexia, spasticity in LEs, chronic neck and lower back pain as well as radicular pain down the right lower extremity CT cervical spine with significant facet arthritis, lumbar MRI with spinal stenosis and HNP at L2-L3 causing severe impingement on L3 nerve root C-spine MRI also with severe stenosis at C3-4 with increased cord signal indicative of myelopathy--> this accounts for all his symptoms MRI brain is normal PT/OT consultations appreciated Consult neurology and orthopedic spine surgery as below Now s/p ACDF on 08/[address] Cruz Improving all around with all myelopathy Mild drop in blood count postoperatively, hemodynamically stable -continue pain control with Tylenol as needed, gabapentin, IV Dilaudid as needed (which he takes sparingly), and p.o. oxycodone as needed -bowel regimen-no BM now in 4 days-took milk of magnesia -post-op care as per Ortho -drain removed continue PT/OT (2) Cervical stenosis of spine: As above Consult orthopedic spine surgeon appreciated (3) Idiopathic polyneuropathy: see above -Continue gabapentin-increased dose at bedtime to 800 mg as per Pain Man-can continue to titrate up or add a midday dose if needed for right lower extremity radicular pain Consulting neurology-recommends B12, methylmalonic acid, copper level, ceruloplasmin, and RPR--> all negative; neurology also recommended EMG all four extremities as outpt-however, he may not need this now that he is status post cervical spine decompression MRI T -spine fairly normal MRI C-spine as above MRI L-spine as above (4) RLS (restless legs syndrome): RLS/neuropathy -presented with involuntary movements, contractures and muscle stiffness of the lower extremities that is fairly acute-more consistent with myelopathy now s/p cervical spine ACDF which will help continue Requip -Continue baclofen Consulting neurology-appreciated With Fe deficiency-replace iron orally (5) UTI (urinary tract infection): related to BPH. finish out course of abx with Augmentin x14-day course- last dose will be 09/03 Rashid catheter remains in place and will follow up with urology as an outpatient for trial of void May have also had some neurogenic component to urinary retention? (6) BPH (benign prostatic hyperplasia): with significant LUTS leading to urinary retention and current infection. With significant prostamegaly on CT abdomen/pelvis Continue rashid drainage until seeing urology after discharge, outpt urology f/u to be arranged PSA normal at 2.17 (7) Lumbar stenosis: Consult orthopedic spine [id number] significant L2-3 right sided disc protrusion and compression--> plan for BÁRBARA as per ortho SPine 6 weeks postop from the cervical spine surgery Continue baclofen, gabapentin and titrate up as needed -continue pain control prn -Pain Management consult appreciated--> plan for BÁRBARA in 6 weeks once recovered from ACDF (8) Hyperreflexia: With 3+ reflexes throughout and 3 beats of clonus in bilateral ankles With contractures and stiffness throughout lower extremities Polyneuropathy - with cervical spine myelopathy Appreciate Neuro consult: with "progressive spastic weakness of both lower extremities with hyperreflexia and bilateral upgoing toes with associated sensory loss to all 4 limbs, notably affecting proprioception. Clinically, patient appears to have a chronic, progressive myeloneuropathy. His clinical presentation and examination findings are not suggestive of either acute or chronic inflammatory demyelinating polyneuropathy (does not look like GBS or CIDP). A hereditary spastic paraparesis is also possible although this group of disorders would not typically include significant polyneuropathy. Furthermore, no clear family history of HSP. Patient's brain MRI not suggestive of multiple sclerosis or demyelinating disease. Furthermore, no evidence of NPH or focal cerebellar atrophy. Again, would recommend MRI of the cervical and thoracic spine without contrast. Outpatient EMG of all 4 limbs. Methylmalonic acid level, copper level, ceruloplasmin, and RPR." now s/p cervical spine ACDF (9) Chronic diarrhea: Typically requires Imodium prn and probiotics although now he is constipated as above (10) COPD (chronic obstructive pulmonary disease): No acute issues, had some wheezing post-op and is now weaned off O2 but occasionally back on it Continue levalbuterol as needed and fluticasone inhaled Incentive spirometry (11) HLD (hyperlipidemia): Continue statin (12) B12 deficiency: B12 level is borderline low in the 350 range Started B12 1000 mcg IM daily x3 doses MMA is normal (13) CAD (coronary artery disease): asymptomatic, with h/o 2 stents placed in 2010 at [facility] in [place], [place] as above, periop risk is average Continue home atorvastatin, aspirin not on beta mercedes (14) DVT prophylaxis: lovenox SQ-placed on HOLD for surgery SCDs Disposition continued stay for recovery post-op, but eventually back to the assisted when okay with orthopedic spine surgeon and if pain is adequately c ontrolled [facility] physician will need to be contacted-not sure if he will be able to be on opioids at the assisted-we will check on this. Of note, patient is also requesting that we tell the assisted doctor that he can return to his original cell rather than going to the [facility]. He feels that he would rehab better and his own self. Admission and Anticipated Discharge Date Admission Date: August 18, 2020 Subjective Patient reports another 4 or 5% improvement in the hand paresthesias today although his right hand remains a bit stiff. Still continues with same right lower extremity radicular pain and spasms in flexion in the left lower extremity Not much neck pain. He is still very constipated and just took milk of magnesia Denies chest pain or shortness of breath Review of Systems Review of Systems: All systems reviewed & are unremarkable except as noted in HPI & below Physical Exam Constitutional: WD/WN, vitals as above + obese Eyes: + anicteric sclerae Neck: trachea midline, no thyromegaly + abnormal visual inspection (collar removed, dresing in plae c/d/i, no drain) Respiratory: normal respiratory effort, lungs clear to auscultation Cardiovascular: RRR, no murmur, no edema Chest (Breasts): Chest: normal inspection of chest Gastrointestinal (Abdomen): normal bowel sounds, soft, nontender, no hepatosplenomegaly Musculoskeletal: Extremities: extremities normal to inspection (LLE flexed partially at the knee); no cyanosis and no clubbing Skin: no rashes, warm and dry Neurologic: moves all extremities and awake Motor/Sensory: no tremor Psychiatric: A+Ox3, euthymic affect Lymphatic: no lymphedema Results & Data Results & Data ([facility]) Vital Signs (Past 12 Hours) Vital Signs Temp Pulse Resp BP Pulse Ox 08/29/20 15:00 85 18 94 08/29/20 14:00 36.6 C 90 16 124/77 94 08/29/20 11:00 84 18 96 08/29/20 07:29 37.0 C 76 18 147/83 H 91 08/29/20 07:00 74 14 93 Laboratory Results 08/29/20 05:24 08/29/20 05:24 PG Care Time/CCT Total # of Minutes Spent Total Time Spent with Patient: Total time spent is greater than 50% in coordination of care (as documented) at patient's floor/unit and/or counseling patient: Coding Level of Care Code 45670 Subseq Hosp Care Lvl 2 Diagnoses Falls W19.XXXA Cervical stenosis of spine M48.02 Idiopathic polyneuropathy G60.9 RLS (restless legs syndrome) G25.81 UTI (urinary tract infection) N39.0 BPH (benign prostatic hyperplasia) N40.0 Lumbar stenosis M48.061 Hyperreflexia R29.2 Chronic diarrhea K52.9 COPD (chronic obstructive pulmonary disease) J44.9 HLD (hyperlipidemia) E78.5 B12 deficiency E53.8 CAD (coronary artery disease) I25.10 DVT prophylaxis Z29.9
[2020-08-29] MEDS: DOCUSATE SODIUM/SENNA 50/8.6MG TAB PO SCH (19:59)
[2020-08-29] MEDS: TAMSULOSIN HCL 0.4 MG CAP PO SCH (20:01)
[2020-08-29] MEDS: rOPINIRole HCL 1 MG TABLET PO SCH (20:01)
[2020-08-29] MEDS: GABAPENTIN 800 MG TAB PO SCH (20:02)
[2020-08-30] MEDS: LEVALBUTEROL TARTRATE 15 GM HFA.AER.AD INH PRN (07:30)
[2020-08-30] MEDS: FLUoxetine HCL 20 MG CAP PO SCH (08:00)
[2020-08-30] MEDS: ASPIRIN 81 MG CHEW PO SCH (08:00)
[2020-08-30] MEDS: ATORVASTATIN 40 MG TAB PO SCH (08:00)
[2020-08-30] MEDS: ADVANCED PROBIOTIC 1250 MG CAPSULE PO SCH ×3 (08:01→20:26)
[2020-08-30] MEDS: AMOXICILLIN/CLAVULANATE 875 MG TAB PO SCH ×2 (08:01→17:53)
[2020-08-30] MEDS: BACLOFEN 20 MG TAB PO SCH ×2 (08:01→20:25)
[2020-08-30] MEDS: FERROUS GLUCONATE 324 MG TAB PO SCH ×2 (08:01→17:53)
[2020-08-30] MEDS: GABAPENTIN 600 MG TAB PO SCH (08:38)
[2020-08-30] MEDS: oxyCODONE HCL IR 5 MG TAB (IMMEDIATE RELEASE) PO PRN ×3 (08:38→17:52)
[2020-08-30] MEDS: FLUTICASONE FUROATE 200MCG 14 PUFFS/INHALER INH SCH (08:39)
--- NOTE | 2020-08-30 12:30 | Orthopedic Progress Note ---
Date of Service August 30, 2020 Assessment & Plan (1) Cervical stenosis of spine: Admission and Anticipated Discharge Date Admission Date: August 18, 2020 At this time I would recommend the patient continue with therapy on a daily basis. He is markedly deconditioned and had severe cord compression. Will most likely require months of work to obtain independence with ambulation. Subjective Patient is swallowing well. He notes cervicalgia usually at night. He feels that his arm symptoms are improving. Physical Exam Physical Exam: On exam he is in bed. He does have reasonable grasp bilateral extremity left stronger than right. Sensory is intact. Results & Data ([facility]) Vital Signs (Past 12 Hours) Vital Signs Temp Pulse Pulse Pulse Resp BP Pulse Ox 08/30/20 11:10 84 16 91 08/30/20 07:37 36.7 C 74 17 134/82 93 08/30/20 07:33 84 16 92 08/30/20 07:30 84 16 92 08/30/20 03:54 37.1 C 73 18 137/83 96 08/30/20 03:07 74 12 93
[2020-08-30] MEDS: ACETAMINOPHEN 500 MG TAB PO PRN (13:05)
--- NOTE | 2020-08-30 16:16 | Hospitalist Progress Note ---
Date of Service August 30, 2020 Assessment & Plan (1) Falls: Presented with numerous falls and a history of idiopathic polyneuropathy based on EMG of the left upper and left lower extremity in 07/2019. - With paresthesias in all 4 extremities, hyperreflexia, spasticity in LEs, chronic neck and lower back pain as well as radicular pain down the right lower extremity. - S/p ACDF on 08/[address] Cruz. - Post-op recs per surgery - Improving all around with all myelopathy - Continue PT/OT (2) Cervical stenosis of spine: As above (3) Idiopathic polyneuropathy: See above. - Continue gabapentin-increased dose at bedtime to 800 mg as per Pain Management - can continue to titrate up or add a midday dose if needed for right lower extremity radicular pain. - Consulted neurology - recommended B12, methylmalonic acid, copper level, ceruloplasmin, and RPR--> all negative; neurology also recommended EMG all four extremities as outpt-however, he may not need this now that he is status post cervical spine decompression. - Follow up neurology as outpatient. (4) UTI (urinary tract infection): Related to BPH. Finish out course of abx with Augmentin x14 - day course- last dose will be 09/03. - Garcia catheter remains in place and will follow up with urology as an outpatient for trial of void - May have also had some neurogenic component to urinary retention? (5) BPH (benign prostatic hyperplasia): With significant LUTS leading to urinary retention and current infection. With significant prostatomegaly on CT abdomen/pelvis. PSA was normal at 2.17. - Continue Garcia drainage until seeing urology after discharge, outpt urology f/u to be arranged (6) CAD (coronary artery disease): Asymptomatic, with h/o 2 stents placed in 2009 at [facility] in [place], [place]. - Continue home atorvastatin, aspirin (7) RLS (restless legs syndrome): - Continue Requip - Continue baclofen (8) Chronic diarrhea: Typically requires Imodium PRN and probiotics. (9) COPD (chronic obstructive pulmonary disease): No acute issues, had some wheezing post-op and is now weaned off O2 but occasionally back on it. - Continue levalbuterol as needed and fluticasone inhaled - Incentive spirometry (10) HLD (hyperlipidemia): - Continue statin (11) B12 deficiency: B12 level is borderline low in the 350 range. MMA was normal. - Started B12 1000 mcg IM daily x3 doses (12) DVT prophylaxis: Lovenox 40 mg SQ daily Admission and Anticipated Discharge Date Admission Date: August 18, 2020 Subjective Reports the left arm is doing well (probably >50% recovered). The right arm is less good (still only about 15 - 20%.). Legs recovering slowly. Still with considerable pain. Reports no fevers/chills, chest pain, shortness of breath, abdominal pain, nausea, or vomiting. Physical Exam Constitutional: WD/WN, vitals as above Eyes: EOM intact bilaterally; no conjunctival abnormality ENMT: external ear and nose normal, oropharynx normal Neck: trachea midline, no thyromegaly normal visual inspection Respiratory: normal respiratory effort, lungs clear to auscultation no respiratory distress Cardiovascular: RRR, no murmur, no edema Gastrointestinal (Abdomen): Inspection/Auscultation: abdomen normal to inspection; abdomen not distended Skin: no rashes, warm and dry Neurologic: moves all extremities and awake Psychiatric: Orientation: alert, oriented to person and cooperative Results & Data Results & Data ([facility]) Vital Signs (Past 12 Hours) Vital Signs Temp Pulse Pulse Resp BP Pulse Ox 08/30/20 15:30 73 16 95 08/30/20 11:10 84 16 91 08/30/20 07:37 36.7 C 74 17 134/82 93 08/30/20 07:33 84 16 92 08/30/20 07:30 84 16 92 PG Care Time/CCT Total # of Minutes Spent Total Time Spent with Patient: Total time spent is greater than 50% in coordination of care (as documented) at patient's floor/unit and/or counseling patient: Coding Level of Care Code 41379 Subseq Hosp Care Lvl 3 Diagnoses Falls W19.XXXA Cervical stenosis of spine M48.02 Idiopathic polyneuropathy G60.9 UTI (urinary tract infection) N39.0 BPH (benign prostatic hyperplasia) N40.0 CAD (coronary artery disease) I25.10 RLS (restless legs syndrome) G25.81 Chronic diarrhea K52.9 COPD (chronic obstructive pulmonary disease) J44.9 HLD (hyperlipidemia) E78.5 B12 deficiency E53.8 DVT prophylaxis Z29.9
[2020-08-30] MEDS: COUGH DROP (SUGAR FREE) LOZ 24 LOZ/1 BOX BUCCAL PRN (19:07)
[2020-08-30] MEDS: DOCUSATE SODIUM/SENNA 50/8.6MG TAB PO SCH (20:24)
[2020-08-30] MEDS: TAMSULOSIN HCL 0.4 MG CAP PO SCH (20:25)
[2020-08-30] MEDS: GABAPENTIN 800 MG TAB PO SCH (20:26)
[2020-08-30] MEDS: rOPINIRole HCL 1 MG TABLET PO SCH (20:26)
[2020-08-31 06:21] LABS: Hematocrit (blood only) 34.5 % (42-52); Hemoglobin 11.3 g/dL (14.0-18.0); Mean Corpuscular Hemoglobin 32.2 pg (25-34); Mean Corpuscular Hgb Conc 32.8 g/dL (32-36); Mean Corpuscular Volume 98.3 fL (80-100); Mean Platelet Volume 9.1 fL (7.4-10.4); Platelet Count 275 K/uL (130-400); RDW Coefficient of Variation 12.8 % (11.5-14.5); RDW Standard Deviation 45.6 fL (36.4-46.3); Red Blood Count 3.51 M/uL (4.7-6.1); White Blood Count 8.74 K/uL (4.8-10.8)
[2020-08-31 06:52] LABS: BUN Creatinine Ratio 20.5 (10-20); Calcium 8.7 mg/dl (8.5-10.1); Creatinine Clr Calc Pharmacy 146.3 ml/min; Est GFR (African American) 115.2 ml/min; Est GFR (Non-African American) 99.4 ml/min; Magnesium 2.7 mg/dl (1.8-2.4); Phosphorus 3.3 mg/dl (2.5-4.9); Potassium 4.1 mmol/L (3.5-5.1)
[2020-08-31] MEDS: oxyCODONE HCL IR 5 MG TAB (IMMEDIATE RELEASE) PO PRN ×3 (08:02→20:18)
[2020-08-31] MEDS: FERROUS GLUCONATE 324 MG TAB PO SCH ×2 (08:04→15:58)
[2020-08-31] MEDS: GABAPENTIN 600 MG TAB PO SCH (08:04)
[2020-08-31] MEDS: ATORVASTATIN 40 MG TAB PO SCH (08:05)
[2020-08-31] MEDS: ADVANCED PROBIOTIC 1250 MG CAPSULE PO SCH ×3 (08:05→20:20)
[2020-08-31] MEDS: FLUoxetine HCL 20 MG CAP PO SCH (08:05)
[2020-08-31] MEDS: ASPIRIN 81 MG CHEW PO SCH (08:06)
[2020-08-31] MEDS: AMOXICILLIN/CLAVULANATE 875 MG TAB PO SCH (08:06)
[2020-08-31] MEDS: FLUTICASONE FUROATE 200MCG 14 PUFFS/INHALER INH SCH (08:07)
[2020-08-31] MEDS: ENOXAPARIN INJ 40 MG/0.4 ML SYR SQ SCH (09:27)
[2020-08-31] MEDS: BACLOFEN 20 MG TAB PO SCH ×2 (09:27→20:20)
--- NOTE | 2020-08-31 15:02 | Hospitalist Progress Note ---
Date of Service August 31, 2020 Assessment & Plan (1) Falls: Presented with numerous falls and a history of idiopathic polyneuropathy based on EMG of the left upper and left lower extremity in 07/2019. - With paresthesias in all 4 extremities, hyperreflexia, spasticity in LEs, chronic neck and lower back pain as well as radicular pain down the right lower extremity. - S/p ACDF on 08/[address] Cruz. - Post-op recs per surgery - Improving all around with all myelopathy - Continue PT/OT -> Spoke with detention today; considering [facility] if possible for him. Discussed with orthopedic surgery who feel he is stable for discharge. (2) Cervical stenosis of spine: As above (3) Idiopathic polyneuropathy: See above. - Continue gabapentin-increased dose at bedtime to 800 mg as per Pain Management - can continue to titrate up or add a midday dose if needed for right lower extremity radicular pain. - Consulted neurology - recommended B12, methylmalonic acid, copper level, ceruloplasmin, and RPR--> all negative; neurology also recommended EMG all four extremities as outpt-however, he may not need this now that he is status post cervical spine decompression. - Follow up neurology as outpatient. (4) UTI (urinary tract infection): Related to BPH. Finish out course of abx with Augmentin x14 - day course- last dose will be 09/03. - Garcia catheter remains in place and will follow up with urology as an outpatient for trial of void - May have also had some neurogenic component to urinary retention? (5) BPH (benign prostatic hyperplasia): With significant LUTS leading to urinary retention and current infection. With significant prostatomegaly on CT abdomen/pelvis. PSA was normal at 2.17. - Continue Garcia drainage until seeing urology after discharge, outpt urology f/u to be arranged (6) CAD (coronary artery disease): Asymptomatic, with h/o 2 stents placed in 2009 at [facility] in [facility] [place]. - Continue home atorvastatin, aspirin (7) RLS (restless legs syndrome): - Continue Requip - Continue baclofen (8) Chronic diarrhea: Typically requires Imodium PRN and probiotics. (9) COPD (chronic obstructive pulmonary disease): No acute issues, had some wheezing post-op and is now weaned off O2 but occasionally back on it. - Continue levalbuterol as needed and fluticasone inhaled - Incentive spirometry (10) HLD (hyperlipidemia): - Continue statin (11) B12 deficiency: B12 level is borderline low in the 350 range. MMA was normal. - Started B12 1000 mcg IM daily x3 doses (12) DVT prophylaxis: Lovenox 40 mg SQ daily Admission and Anticipated Discharge Date Admission Date: August 18, 2020 Subjective Reports the left arm is doing well (probably >50% recovered). The right arm is less good (still only about 15 - 20%.). Legs not any better today. Still with considerable pain, but able to sit up in a chair today. Reports no fevers/chills, chest pain, shortness of breath, abdominal pain, nausea, or vomiting. Physical Exam Constitutional: WD/WN, vitals as above Eyes: EOM intact bilaterally; no conjunctival abnormality ENMT: external ear and nose normal, oropharynx normal Neck: trachea midline, no thyromegaly normal visual inspection Respiratory: normal respiratory effort, lungs clear to auscultation no respiratory distress Cardiovascular: RRR, no murmur, no edema Gastrointestinal (Abdomen): Inspection/Auscultation: abdomen normal to inspection; abdomen not distended Skin: no rashes, warm and dry Neurologic: moves all extremities and awake Psychiatric: Orientation: alert, oriented to person and cooperative Results & Data Results & Data ([facility]) Vital Signs (Past 12 Hours) Vital Signs Temp Pulse Resp BP Pulse Ox 08/31/20 14:25 37 C 76 18 131/84 94 08/31/20 11:22 117 H 18 93 08/31/20 09:51 95 08/31/20 08:00 88 L 08/31/20 07:03 63 18 92 08/31/20 06:17 37.0 C 81 16 136/80 94 PG Care Time/CCT Total # of Minutes Spent Total Time Spent with Patient: Total time spent is greater than 50% in coordination of care (as documented) at patient's floor/unit and/or counseling patient: Coding Level of Care Code 28467 Subseq Hosp Care Lvl 2 Diagnoses Falls W19.XXXA Cervical stenosis of spine M48.02 Idiopathic polyneuropathy G60.9 UTI (urinary tract infection) N39.0 BPH (benign prostatic hyperplasia) N40.0 CAD (coronary artery disease) I25.10 RLS (restless legs syndrome) G25.81 Chronic diarrhea K52.9 COPD (chronic obstructive pulmonary disease) J44.9 HLD (hyperlipidemia) E78.5 B12 deficiency E53.8 DVT prophylaxis Z29.9
[2020-08-31] MEDS: ACETAMINOPHEN 500 MG TAB PO PRN (16:28)
[2020-08-31] MEDS: rOPINIRole HCL 1 MG TABLET PO SCH (20:19)
[2020-08-31] MEDS: TAMSULOSIN HCL 0.4 MG CAP PO SCH (20:20)
[2020-08-31] MEDS: GABAPENTIN 800 MG TAB PO SCH (20:20)
[2020-08-31] MEDS: DOCUSATE SODIUM/SENNA 50/8.6MG TAB PO SCH (20:21)
[2020-09-01] MEDS: oxyCODONE HCL IR 5 MG TAB (IMMEDIATE RELEASE) PO PRN (03:15)
[2020-09-01] MEDS ORDERED: CHLORASEPTIC 1.4% SOLN 180 ML BTL MT PRN (07:27)
[2020-09-01] MEDS: HYDROmorphone INJ 1 MG/ML SYRINGE IV PRN (07:58)
[2020-09-01] MEDS: BACLOFEN 20 MG TAB PO SCH (08:00)
[2020-09-01] MEDS: ADVANCED PROBIOTIC 1250 MG CAPSULE PO SCH ×2 (08:00→13:34)
[2020-09-01] MEDS: ATORVASTATIN 40 MG TAB PO SCH (08:00)
[2020-09-01] MEDS: GABAPENTIN 600 MG TAB PO SCH (08:01)
[2020-09-01] MEDS: ASPIRIN 81 MG CHEW PO SCH (08:01)
[2020-09-01] MEDS: FERROUS GLUCONATE 324 MG TAB PO SCH (08:01)
[2020-09-01] MEDS: ENOXAPARIN INJ 40 MG/0.4 ML SYR SQ SCH (08:02)
[2020-09-01] MEDS: FLUTICASONE FUROATE 200MCG 14 PUFFS/INHALER INH SCH (08:02)
[2020-09-01] MEDS: FLUoxetine HCL 20 MG CAP PO SCH (08:02)
[2020-09-01] MEDS: traMADol HCL 50 MG TABLET PO PRN (13:34)
--- NOTE | 2020-09-01 16:17 | Discharge Summary ---
Date of Service September 01, 2020 Admission HPI Per Admitting Provider 65 y/o M w/ hx of HLD, CAD w/ stent, COPD, RLS, and a 1.5 years of idiopathic polyneuropathy who has had increasing paresthesias of his extremities and weakness of lower extremities leading to falls. His symptoms started after he twisted his neck while getting off a bus in February 2019. The paresthesias started and he fell from both legs "giving out" 2 weeks later. His hands and feet feel heavy and "frozen." He has had chronic back and neck pain since then as well. Patient notes that his symptoms have persisted and worsened and increased frequency over the past year. 07/2019 EEG suggested idiopathic polyneuropathy. Patient states MS and lyme testing returned negative. He presented to the ED today after having 3 falls in the past week. His baseline has been wheelchair bound x 10 months because of his legs feeling weak/numb and this has mostly not changed. Patient has also had difficulty voiding and urinary incontinence x 3 months along with dysuria. He states that there was discussion of potentially starting Flomax. Denies recent substance use. Denies LOC. Principal Diagnosis Cervical stenosis causing spinal cord compression Idiopathic peripheral neuropathy Discharge Exam Constitutional WD/WN, vitals as above Eyes EOM intact bilaterally; no conjunctival abnormality ENMT external ear and nose normal, oropharynx normal Neck trachea midline, no thyromegaly normal visual inspection Respiratory normal respiratory effort, lungs clear to auscultation no respiratory distress Cardiovascular RRR, no murmur, no edema Gastrointestinal (Abdomen) Inspection/Auscultation: abdomen normal to inspection; abdomen not distended Skin no rashes, warm and dry Neurologic moves all extremities and awake Psychiatric Orientation: alert, oriented to person and cooperative Discharge Data Allergies Allergy/AdvReac Type Severity Reaction Status Date / Time gemfibrozil [From Lopid] Allergy Unknown Unverified 08/18/20 15:16 Consultations 08/18/20 16:09 ED Decision to Admit Stat 08/20/20 09:16 Consult Urology Routine 08/23/20 11:00 Consult Neurology Routine 08/23/20 16:44 Consult Orthopedic Surgery Routine 08/27/20 09:13 Consult Pain Management Routine Procedures Performed Operation Date: 08/26/20 07:30 Actual Procedures p C3-C4 Anterior Cervical Discectomy Fusion with Spinal Cord Monitoring(Not Applicable) - Thai Cruz, Ordered Studies 08/18/20 13:24 CT abd pelvis IV con only Stat CT cervical spine wo con Stat CT chest diagnostic w con Stat CT head/brain wo con Stat 08/18/20 13:34 CT lumbar spine w con Stat 08/23/20 08:51 MR brain wo/w con Routine MR lumbar spine wo/w con Routine 08/24/20 17:08 MR cervical spine wo con Urgent 08/25/20 17:08 MR thoracic spine wo con Urgent 08/26/20 07:30 FL cervical 2-3V Routine Hospital Course (1) Falls: Presented with numerous falls and a history of idiopathic polyneuropathy based on EMG of the left upper and left lower extremity in 07/2019. - With paresthesias in all 4 extremities, hyperreflexia, spasticity in LEs, chronic neck and lower back pain as well as radicular pain down the right lower extremity. - S/p ACDF on 08/[address] Cruz. - Post-op recs per surgery - Improving all around with all myelopathy - Continue PT/OT -> To [facility] instead of retirement. Will need to follow up with Dr. Cruz in 1 week for post-op. (2) Cervical stenosis of spine: As above (3) Idiopathic polyneuropathy: See above. - Continue gabapentin-increased dose at bedtime to 800 mg as per Pain Management - can continue to titrate up or add a midday dose if needed for right lower extremity radicular pain. - Consulted neurology - recommended B12, methylmalonic acid, copper level, ceruloplasmin, and RPR--> all negative; neurology also recommended EMG all four extremities as outpt-however, he may not need this now that he is status post cervical spine decompression. - Follow up neurology as outpatient for EMG. (4) UTI (urinary tract infection): Related to BPH. Finish out course of abx with Augmentin x14 - day course- last dose will be 09/03. - Garcia catheter remains in place and will follow up with urology as an outpatient for trial of void - May have also had some neurogenic component to urinary retention? (5) BPH (benign prostatic hyperplasia): With significant LUTS leading to urinary retention and current infection. With significant prostatomegaly on CT abdomen/pelvis. PSA was normal at 2.17. - Continue Garcia drainage until seeing urology after discharge, outpt urology f/u to be arranged (6) CAD (coronary artery disease): Asymptomatic, with h/o 2 stents placed in 2009 at [facility] in [place], [place]. - Continue home atorvastatin, aspirin (7) RLS (restless legs syndrome): - Continue Requip - Continue baclofen (8) Chronic diarrhea: Typically requires Imodium PRN and probiotics. (9) COPD (chronic obstructive pulmonary disease): No acute issues, had some wheezing post-op and is now weaned off O2 but occasionally back on it. - Continue levalbuterol as needed and fluticasone inhaled - Incentive spirometry (10) HLD (hyperlipidemia): - Continue statin (11) B12 deficiency: B12 level is borderline low in the 350 range. MMA was normal. - Started B12 1000 mcg IM daily x3 doses (12) DVT prophylaxis: Lovenox 40 mg SQ daily Total Time Total Time Spent Total Time Spent (In Minutes): 35 Discharge Plan Discharge Items Patient Disposition: Transfer Inpatient Rehab Fac Reason For Visit: polyneuropathy, falls Discharge Diagnosis: Cervical stenosis causing cord compression, requiring ACDF Idiopathic peripheral neuropathy Activity: Resume your previous activity Lifting: No more than 5 pounds Lifting Comment: Until cleared by Dr. Cruz Non-emergency contact: Primary Care Provider, Surgeon and Neurologist Call non-emergency contact if: your symptoms worsen Follow-up/Referrals: Lester Early MD [Physician] - (Please see Dr. Early or other neurology provider for EMG and neuropathy follow-up.) Devonte Martins MD [Physician] - (Please see any urology provider in the office for a voiding trial.) Thai Cruz DO [Surgeon] - (Please see Dr. Cruz next week for further recommendations and check-up of your neck.) Sami Shannon [Primary Care Provider] - Diet: Regular Addtl Attending Provider Instructions: ACTIVITY RECOMMENDATIONS: SELF CARE INSTRUCTIONS AFTER CERVICAL FUSIONS 1. No smoking. Smoking drastically decreases the chance of a solid fusion. 2. No bending, lifting more than 5 pounds, or twisting (roll like a log when turning in bed). 3. You may shower 3 days after surgery. Thoroughly dry wound. Do not soak in the tub. 4. Cervical collar: Must be worn at all times including sleeping. You may remove the brace only to bath, eat and if you are sitting in a recliner. 5. Please walk as much as you can for exercise. Gradually increase the distance that you walk as your endurance increases. SPECIAL CARE INSTRUCTIONS: VERY IMPORTANT TO READ AND REVIEW A. Do not take any anti-inflammatory medications (i.e. Indocin, Advil, Aspirin, Naprosyn, Aleve, Motrin, etc.) as these may inhibit the chance of a solid fusion. Tylenol is okay to take. B. Your surgical incision has been closed with a cosmetic suture under the skin that will dissolve in about 6 weeks. In 14 days, you can use a pair of clean scissors and cut the suture that is left outside of the skin at the ends of your incision. C. Complications are uncommon, but please contact us if you have any signs or symptoms of: 1. wound infection (fever higher than 102.5 degrees F, redness, separation of wound, drainage, or increasing pain from the incision) 2. blood clots in legs (pain, swelling, redness and warmth in legs) 3. urinary tract infection (fever higher than 102.5 degrees, burning upon urination or increased frequency of urination) 4. nerve problems (inability to walk on your toes or heels, numbness, loss of bowel or bladder control) 5. any other symptoms that concern you. D. Please call the office at if you have any concerns or questions about your operation or recovery. MANAGING PAIN AFTER SPINAL SURGERY 1. Narcotic medication is intended for short-term use and will be provided for surgical pain. Surgical pain usually lasts for a period of 4-6 weeks. Narcotic medication includes Percocet, Vicodin, Darvocet, Tylenol #3 or Lortab. 2. Longer-term pain is more appropriately treated with non-narcotic medication such as Tylenol ES. 3. Muscle spasm is not appropriately treated with narcotics. Muscle relaxers such as Soma, Flexeril or Skelaxin can be used along with Tylenol ES. 4. Remember that we all live with some "aches and pains". This is not unusual or uncommon after an injury or as we get older. 5. We will provide appropriate medication within the normal guidelines of their prescribed use. We will also be very cautious and aware of potential abuse and extended duration of patients' medication needs. 6. Please allow 2-3 days to process refills. Prescriptions will not be mailed but must be picked up at the office. FOLLOW UP VISIT: Keep your scheduled follow-up appointment. Any questions, please call the office at . Pending Studies at Discharge: No Stand-Alone Forms: My [facility] Skilled Items Patient informed of condition?: Yes DNR: Yes Discharge Level of Care: Acute rehab Communicable Disease: No Discharge Prognosis: Improving Lines: None Urinary Catheter: Yes Medications and DC Order Prescriptions: New gabapentin 600 mg Tablet 600 mg PO QAM Qty: 0 RF: 0 tramadol 50 mg Tablet 50 - 100 mg PO Q4H PRNQty: 0 RF: 0 tamsulosin 0.4 mg Capsule 0.4 mg PO HS Qty: 0 RF: 0 gabapentin 800 mg Tablet 800 mg PO HS Qty: 0 RF: 0 Continued fluoxetine 20 mg Capsule 80 mg PO DAILY RF: 0 baclofen 20 mg Tablet 20 mg PO BID RF: 0 acidophilus-pectin, citrus 100 million cell-10 mg Capsule 1 cap PO TID RF: 0 diclofenac sodium 50 mg Tablet,Delayed Release (Dr/Ec) 50 mg PO TID RF: 0 loperamide [Imodium A-D] 2 mg Tablet 2 mg PO QID PRN (Reason: Diarrhea) RF: 0 ropinirole 1 mg Tablet 1 mg PO HS RF: 0 acetaminophen 500 mg Capsule 1,000 mg PO TID PRN (Reason: Pain) RF: 0 Alvesco 160 mcg/actuation Hfa Aerosol Inhaler 1 puff INHALATION BID RF: 0 atorvastatin 40 mg Tablet 40 mg PO DAILY RF: 0 levalbuterol tartrate [Xopenex HFA] 45 mcg/actuation Hfa Aerosol Inhaler 2 inh INHALATION Q6H PRN (Reason: Shortness Of Breath Or Wheezing) RF: 0 Discontinued oxcarbazepine [Trileptal] 150 mg Tablet 150 mg PO BID RF: 0 aspirin 81 mg Tablet,Chewable 81 mg PO DAILY RF: 0 Discharge Orders: Discharge Order (Routine); Ordered 09/01/20 Ordered By: Sanchez Taylor Admission Data Admit Date/Time: 08/18/20 20:02 Attending Provider: Sanchez Taylor Admit Provider: Govind Short Primary Care Provider: Sami Shannon Other Providers: Tomás Juárez ; Rodo Clifford ; Devonte Martins ; Renee Peña ; Nando Moran ; Joanna Rivas ; Regine Shine ; Ashleigh Alnozo ; Pérez Ugalde ; Erma Bender ; Dori Alonzo ; Lester Early ; Thai Cruz ; Jeff Gonsalves ; Sanchez Taylor ; [facility] Other Interventions: Discharge Summary Assessment (RN) Last Done: 09/01/20 14:48 Coding Level of Care Code D/C Day Management >30 mins Diagnoses Falls W19.XXXA Cervical stenosis of spine M48.02 Idiopathic polyneuropathy G60.9 UTI (urinary tract infection) N39.0 BPH (benign prostatic hyperplasia) N40.0 CAD (coronary artery disease) I25.10 RLS (restless legs syndrome) G25.81 Chronic diarrhea K52.9 COPD (chronic obstructive pulmonary disease) J44.9 HLD (hyperlipidemia) E78.5 B12 deficiency E53.8 DVT prophylaxis Z29.9
== END 2020-09-01 15:24 | DRG 473 ==
LOC: ED 12:24 → SUATTDRO 20:02 → 3N 20:02 → 3E 08-26 09:41